=== PATIENT | male | born 1930 ===

== ENCOUNTER → 2016-06-13 | Outpatient (CLI) | payer OTHER ==
[~2016-06-13] MED LIST: ALBUAER2 INH; ASPI81TA28 PO; ETOD500T95 PO; MULTTAB5 PO; PRAV20TA PO
[2016-06-13 12:26] LABS: ALT/SGPT 29 U/L (12-78); BLOOD UREA NITROGEN 13 mg/dl (7-18); BUN/CREATININE RATIO 14.3 (10-20); CALCIUM 8.7 mg/dl (8.5-10.1); CARBON DIOXIDE 26 mmol/L (21-32); CHLORIDE 107 mmol/L (98-107); CHOLESTEROL 125 mg/dl (0-200); CREATININE 0.94 mg/dl (0.60-1.40); GLUCOSE 100 mg/dl (70-99); POTASSIUM 4.2 mmol/L (3.5-5.1); SODIUM 141 mmol/L (136-145)
[2016-06-13 12:29] LABS: ALB/GLOB RATIO 1.4 (0.9-2); ALKALINE PHOSPHATASE 66 U/L (45-117); AST/SGOT 20 U/L (15-37); CHOLESTEROL/HDL RATIO 2.2; HDL CHOLESTEROL 56 mg/dl; LDL CHOLESTEROL CALCULATED 55 mg/dl; TRIGLYCERIDES 68 mg/dl (0-150); VERY LOW DENSITY LIPOPROT CALC 14 mg/dl
== END | disposition home or self-care (01) ==
LOC: C.LABPBG 08:00
PROVIDERS: ATTEND Internal Medicine
DX: E78.5 Hyperlipidemia, unspecified (principal); I25.10 Atherosclerotic heart disease of native coronary artery without angina pectoris; I10 Essential (primary) hypertension

== ENCOUNTER 2017-02-20 08:34 | Inpatient (IN) | payer OTHER ==
[~2017-02-20] VITALS: Ht 167.6 cm; Wt 65.7 kg
[2017-02-20] MEDS ORDERED: SODIUM CHLORIDE 0.9% 1000ML 500 ML IV STA (08:41)
[2017-02-20] MEDS ORDERED: ONDANSETRON INJ 2 MG/ML 2 ML VIAL IV STA (08:41)
--- NOTE | 2017-02-20 08:51 | EMERGENCY ROOM VISIT NOTE ---
History Report prepared by Crystal: Stephanie Lopez Under the Supervision of: Dr. David Haskins M.D. First contact with patient: 08:37 Chief Complaint: ABDOMINAL PAIN Stated Complaint: ABDOMINAL PAIN Nursing Triage Summary: pt arrived als from independent living at [facility], reported abdominal pains for one week, one week prior had diarreah and vomitting, since then hasnt had a bm but is passing gas. pt states " he wasnt going to today so he wanted to come to the hospital" History of Present Illness The patient is an 86 year old male who presents to the Emergency Room with complaints of persistent, diffuse abdominal pain that began 8 days ago. He currently rates his discomfort as an 8/10 in severity. The patient states that last Friday he vomited three different times and then developed diarrhea for three days. He states that since last Friday he has not had a bowel movement, noting he has been constipated. The patient states that this morning he developed dry heaves. He states that he is feeling thirsty today. The patient denies any history of abdominal surgeries. He denies any history of a bowel obstruction. The patient denies any urinary symptoms or fever. Source of History: patient Onset: 8 days ago Position: abdomen (diffuse) Symptom Intensity: 810 Timing: other (persistent) Associated Symptoms: + vomiting, + diarrhea, No fevers, No urinary symptoms Note: Associated Symptoms: constipation Review of Systems See HPI for pertinent positives & negatives. A total of 10 systems reviewed and were otherwise negative. Past Medical & Surgical Medical Problems: (1) Heart disease (2) Hyperlipidemia (3) Lyme disease (4) Osteoarthritis (5) Prostate cancer (6) Prostate hypertrophy Family History No pertinent family history stated Social History Smoking Status: Former Smoker Marital Status: Housing Status: lives with significant other Occupation Status: retired Current/Historical Medications Scheduled Aspirin (Aspirin Chewable), 81 MG PO DAILY Atorvastatin (Lipitor), 80 MG PO DAILY Clopidogrel Bisulfate (Plavix), 75 MG PO DAILY Multiple Vitamins W/ Minerals (Centrum), 1 TAB PO DAILY Scheduled PRN Nitroglycerin (Nitrostat), 0.4 MG UT PRN PRN for CHEST PAIN Allergies Coded Allergies: No Known Allergies (Unverified , 02/20/17) Physical Exam Vital Signs Date Time Temp Pulse Resp B/P (MAP) Pulse Ox O2 Delivery O2 Flow Rate FiO2 02/20/17 11:57 97 Room Air 02/20/17 11:54 89 18 111/92 97 02/20/17 10:49 90 18 113/62 92 02/20/17 08:28 36.6 112 18 142/70 94 Room Air Physical Exam GENERAL: Patient is in no acute distress. HEENT: No acute trauma, normocephalic atraumatic, Mucous membranes dry, no nasal congestion, no scleral icterus. NECK: No stridor, no adenopathy, no meningismus, trachea is midline. LUNGS: Crackles at both bases. No wheezing, breath sounds equal. HEART: Tachycardic with a regular rhythm, no murmurs ABDOMEN: No obvious hernia, diffusely mildly tender, some distension present, tympany with percussion, no true peritonitis EXTREMITIES: No cyanosis or edema, full range of motion of all the joints without pain or difficulty, no signs for acute trauma. NEUROLOGIC: Oriented x 3, no acute motor or sensory deficits, no focal weakness. SKIN: No rash, no jaundice, no diaphoresis. Medical Decision & Procedures ER Provider Diagnostic Interpretation: Radiology results as stated below per my review and radiologist interpretation: SINGLE VIEW CHEST CLINICAL HISTORY: Generalized abdominal pain. FINDINGS: An AP, portable, upright chest radiograph is compared to study dated 09/14/2015 and correlated with chest CT dated 12/26/2015. The examination is degraded by portable technique and patient rotation. The heart is top normal for projection and there is atherosclerotic calcification of the thoracic aorta. The pulmonary vasculature is noncongested. Enlargement of the central pulmonary arteries is consistent with pulmonary artery hypertension. Emphysema and chronic interstitial thickening are similar to previous. There are foci of linear scarring versus atelectasis present the lung bases. The lungs and pleural spaces are otherwise clear. No pneumothorax is seen. The skeletal structures are osteopenic. The bony thorax is grossly intact. Arthritic change is noted in the spine and shoulders. IMPRESSION: Emphysema with no acute cardiopulmonary abnormality. Electronically signed by: David Spencer M.D. 02/20/2017 9:23 AM Dictated Date/Time: 02/20/2017 9:21 AM ABD/PELVIS IV CONTRAST ONLY CT DOSE: 325.85 mGy.cm HISTORY: ABD PAIN, POSS OBSTRUCTION, IV CONTRAST ONLY TECHNIQUE: Multiaxial CT images of the abdomen and pelvis were performed following the use of intravenous contrast. A dose lowering technique was utilized adhering to the principles of ALARA. COMPARISON STUDY: None. FINDINGS: Lung bases are clear. There multiple hypodensities within the right as well as left hepatic lobe. Metastatic disease must be considered. Spleen is uniform. Pancreas is unremarkable. Kidneys show several small parapelvic cysts. There are negative for hydronephrosis. Several nonspecific Nodes are present measuring up to 8 mm. Several nodes measuring up to 1 cm present in the mid to lower mesenteric Region. There is atherosclerotic change and ectasia of the abdominal aorta. There are distended loops of small bowel extending to but is potentially a annular type appearance to the region of the cecum and a sending colon. This is best seen transaxial image 38. Possibly of a lesion measuring up to 5 cm involving the cecum and/or a sending colon must be considered. There are several nonspecific nodes involving the mesentery. There are findings of chronic colonic diverticulosis. There is no evidence for acute diverticulitis. IMPRESSION: 1. 1. Multiple hepatic hypodensities highly suggestive of metastatic disease. 2. Findings suggesting partial small bowel obstructive change. 3. Potential lesion of the cecum and or proximal descending colon measuring up to 5 cm. 4. A colonic neoplasm with metastatic change must be considered. Colonoscopy is suggested initially. The above report was generated using voice recognition software. It may contain grammatical, syntax or spelling errors. Electronically signed by: Aiden Golden M.D. 02/20/2017 10:11 AM Dictated Date/Time: 02/20/2017 10:05 AM Laboratory Results 02/20/17 09:00 Red Blood Count 3.90, Mean Corpuscular Volume 85.9, Mean Corpuscular Hemoglobin 28.7, Mean Corpuscular Hemoglobin Concent 33.4, Mean Platelet Volume 9.6, Neutrophils (%) (Auto) 77.8, Lymphocytes (%) (Auto) 7.4, Monocytes (%) (Auto) 12.5, Eosinophils (%) (Auto) 1.7, Basophils (%) (Auto) 0.5, Neutrophils # (Auto ) 6.31, Lymphocytes # (Auto) 0.60, Monocytes # (Auto) 1.01, Eosinophils # (Auto ) 0.14, Basophils # (Auto) 0.04 02/20/17 09:00 Test 02/20/17 09:00 White Blood Count 8.11 K/uL (4.8-10.8) Red Blood Count 3.90 M/uL (4.7-6.1) Hemoglobin 11.2 g/dL (14.0-18.0) Hematocrit 33.5 % (42-52) Mean Corpuscular Volume 85.9 fL (80-100) Mean Corpuscular Hemoglobin 28.7 pg (25-34) Mean Corpuscular Hemoglobin Concent 33.4 g/dl (32-36) Platelet Count 209 K/uL (130-400) Mean Platelet Volume 9.6 fL (7.4-10.4) Neutrophils (%) (Auto) 77.8 % Lymphocytes (%) (Auto) 7.4 % Monocytes (%) (Auto) 12.5 % Eosinophils (%) (Auto) 1.7 % Basophils (%) (Auto) 0.5 % Neutrophils # (Auto) 6.31 K/uL (1.4-6.5) Lymphocytes # (Auto) 0.60 K/uL (1.2-3.4) Monocytes # (Auto) 1.01 K/uL (0.11-0.59) Eosinophils # (Auto) 0.14 K/uL (0-0.5) Basophils # (Auto) 0.04 K/uL (0-0.2) RDW Standard Deviation 42.8 fL (36.4-46.3) RDW Coefficient of Variation 13.7 % (11.5-14.5) Immature Granulocyte % (Auto) 0.1 % Immature Granulocyte # (Auto) 0.01 K/uL (0.00-0.02) Prothrombin Time 10.4 SECONDS (9.0-12.0) Prothromb Time International Ratio 1.0 (0.9-1.1) Activated Partial Thromboplast Time 27.8 SECONDS (21.0-31.0) Partial Thromboplastin Ratio 1.1 Anion Gap 9.0 mmol/L (3-11) Est Creatinine Clear Calc Drug Dose 77.3 ml/min Estimated GFR () 104.1 Estimated GFR (Non- 89.9 BUN/Creatinine Ratio 13.4 (10-20) Lactic Acid Level 1.4 mmol/L (0.4-2.0) Calcium Level 8.5 mg/dl (8.5-10.1) Total Bilirubin 0.9 mg/dl (0.2-1) Aspartate Amino Transf (AST/SGOT) 80 U/L (15-37) Alanine Aminotransferase (ALT/SGPT) 117 U/L (12-78) Alkaline Phosphatase 405 U/L (45-117) Troponin I < 0.015 ng/ml (0-0.045) Total Protein 6.4 gm/dl (6.4-8.2) Albumin 3.1 gm/dl (3.4-5.0) Globulin 3.3 gm/dl (2.5-4.0) Albumin/Globulin Ratio 0.9 (0.9-2) Lipase 75 U/L (73-393) Laboratory results reviewed by me. Medications Administered Medications (Trade) Dose Ordered Sig/Maciej Route Start Time Stop Time Status Last Admin Dose Admin Sodium Chloride 500 ml @ 999 mls/hr Q31M STAT IV 02/20/17 08:41 02/20/17 09:11 DC 02/20/17 08:53 999 MLS/HR Ondansetron HCl (Zofran Inj) 4 mg NOW STAT IV 02/20/17 08:41 02/20/17 08:46 DC 02/20/17 08:53 4 MG ECG Indication: abdominal pain Rate (beats per minute): 104 Rhythm: sinus tachycardia Findings: 1st degree AV block, RBBB, ST depression (lateral and anterior), no ectopy Comparison ECG Date: no prior available ED Course 0840: The patient was evaluated in room B4B. A complete history and physical exam was performed. 0841: Ordered Zofran Inj 4 mg IV, Sodium Chloride 500 ml @ 999 mls/hr IV. 1051: I reevaluated the patient and he is resting comfortably. I discussed the test results with him and I discussed the treatment plan. He verbalized complete understanding and agreement. He is going to be evaluated for further treatment. 1105: I discussed the patients case with REGINALDO Ramos. He is going to evaluate the patient for further treatment. Medical Decision The patient is an 86 year old male who presents to the ED with complaints of abdominal pain. Differential diagnoses considered include Bowel obstruction, dehydration, electrolyte imbalance, renal failure, pancreatitis, biliary colic, diverticulitis, colitis . There is no leukocytosis or concerning anemia. No significant electrolyte abnormality, kidney failure. There is elevation to the liver enzymes. No pancreatitis. Lactic acid level is not elevated making bowel ischemia less likely. Chest x-ray does not show free air or pneumonia. Abdominal and pelvis CT shows evidence for a small bowel obstruction and potential colonic mass with metastases to the liver. EKG shows a sinus tachycardia, no acute ischemia. Cardiac enzyme testing 1 is not consistent with acute cardiac injury. On exam , the patient was not febrile or toxic. He did not have findings of peritonitis. The patient received IV saline and IV Zofran, he did have an NG tube placed to low intermittent suction. The patient has a bowel obstruction and will require a stay in the hospital. I spoke with the patient about his findings, case management has been involved. The on-call hospitalist was consulted. Medication Reconcilliation Current Medication List: was personally reviewed by me Blood Pressure Screening Patient's blood pressure: Elevated blood pressure Blood pressure disposition: Elevated BP felt to be situational, Did not require urgent referral Consults Time Called: 1055 Consulting Physician: REGINALDO Ramos Returned Call: [phone] I discussed the patients case with REGINALDO Ramos. He is going to evaluate the patient for further treatment. Impression Primary Impression: Small bowel obstruction Additional Impressions: Elevated liver enzymes Dehydration Scribe Attestation The scribe's documentation has been prepared under my direction and personally reviewed by me in its entirety. I confirm that the note above accurately reflects all work, treatment, procedures, and medical decision making performed by me. Departure Information Dispostion Being Evaluated By Hospitalist Referrals Danilo Maldonado M.D. (PCP) Problem Qualifiers
[2017-02-20] MEDS ORDERED: CLOP1TAB5 PO (08:58)
[2017-02-20] MEDS ORDERED: ASPCH81X PO (08:58)
[2017-02-20] MEDS ORDERED: NTRGSL/4 UT (08:58)
[2017-02-20] MEDS ORDERED: ATOR-26 PO (08:58)
[2017-02-20] MEDS ORDERED: MULTTAB5 PO (08:58)
[2017-02-20] MEDS ORDERED: OPTIRAY 320 IV PRN (09:00)
[2017-02-20 09:15] LABS: BASO % 0.5 %; BASO ABS # 0.04 K/uL (0-0.2); COMPLETE YES; EOS % 1.7 %; HEMATOCRIT 33.5 % (42-52); IG% 0.1 %; LYMPH % 7.4 %; MEAN CELL VOLUME 85.9 fL (80-100); MEAN CORPUSCULAR HEMOGLOBIN 28.7 pg (25-34); MEAN CORPUSCULAR HGB CONC 33.4 g/dl (32-36); MEAN PLATELET VOLUME 9.6 fL (7.4-10.4); MONO % 12.5 %; NEUT % 77.8 %; PLATELET COUNT 209 K/uL (130-400); WHITE BLOOD COUNT 8.11 K/uL (4.8-10.8)
--- NOTE | 2017-02-20 09:24 | DIAGNOSTIC IMAGING REPORT ---
SINGLE VIEW CHEST CLINICAL HISTORY: Generalized abdominal pain. FINDINGS: An AP, portable, upright chest radiograph is compared to study dated 09/14/2015 and correlated with chest CT dated 12/26/2015. The examination is degraded by portable technique and patient rotation. The heart is top normal for projection and there is atherosclerotic calcification of the thoracic aorta. The pulmonary vasculature is noncongested. Enlargement of the central pulmonary arteries is consistent with pulmonary artery hypertension. Emphysema and chronic interstitial thickening are similar to previous. There are foci of linear scarring versus atelectasis present the lung bases. The lungs and pleural spaces are otherwise clear. No pneumothorax is seen. The skeletal structures are osteopenic. The bony thorax is grossly intact. Arthritic change is noted in the spine and shoulders. IMPRESSION: Emphysema with no acute cardiopulmonary abnormality. Electronically signed by: David Spencer M.D. 02/20/2017 9:23 AM Dictated Date/Time: 02/20/2017 9:21 AM
[2017-02-20 09:27] LABS: PARTIAL THROMBOPLASTIN RATIO 1.1; PROTHROMBIN TIME (PATIENT) 10.4 SECONDS (9.0-12.0)
[2017-02-20 09:35] LABS: BUN/CREATININE RATIO 13.4 (10-20); CALCIUM 8.5 mg/dl (8.5-10.1); CREATININE 0.63 mg/dl (0.60-1.40); POTASSIUM 3.8 mmol/L (3.5-5.1)
[2017-02-20 09:38] LABS: ALB/GLOB RATIO 0.9 (0.9-2)
--- NOTE | 2017-02-20 10:12 | DIAGNOSTIC IMAGING REPORT ---
ABD/PELVIS IV CONTRAST ONLY CT DOSE: 325.85 mGy.cm HISTORY: ABD PAIN, POSS OBSTRUCTION, IV CONTRAST ONLY TECHNIQUE: Multiaxial CT images of the abdomen and pelvis were performed following the use of intravenous contrast. A dose lowering technique was utilized adhering to the principles of ALARA. COMPARISON STUDY: None. FINDINGS: Lung bases are clear. There multiple hypodensities within the right as well as left hepatic lobe. Metastatic disease must be considered. Spleen is uniform. Pancreas is unremarkable. Kidneys show several small parapelvic cysts. There are negative for hydronephrosis. Several nonspecific Nodes are present measuring up to 8 mm. Several nodes measuring up to 1 cm present in the mid to lower mesenteric Region. There is atherosclerotic change and ectasia of the abdominal aorta. There are distended loops of small bowel extending to but is potentially a annular type appearance to the region of the cecum and a sending colon. This is best seen transaxial image 38. Possibly of a lesion measuring up to 5 cm involving the cecum and/or a sending colon must be considered. There are several nonspecific nodes involving the mesentery. There are findings of chronic colonic diverticulosis. There is no evidence for acute diverticulitis. IMPRESSION: 1. 1. Multiple hepatic hypodensities highly suggestive of metastatic disease. 2. Findings suggesting partial small bowel obstructive change. 3. Potential lesion of the cecum and or proximal descending colon measuring up to 5 cm. 4. A colonic neoplasm with metastatic change must be considered. Colonoscopy is suggested initially. The above report was generated using voice recognition software. It may contain grammatical, syntax or spelling errors. Electronically signed by: Aiden Golden M.D. 02/20/2017 10:11 AM Dictated Date/Time: 02/20/2017 10:05 AM
[2017-02-20 11:57] VITALS: O2SAT 97; Ht 167.6 cm; Wt 65.7 kg
[2017-02-20 12:32] VITALS: BP 124/74; PULSE 88; TEMP 36.8; O2SAT 95
--- NOTE | 2017-02-20 12:46 | DIAGNOSTIC IMAGING REPORT ---
KUB CLINICAL HISTORY: NG tube placement tube position COMPARISON STUDY: No previous studies for comparison. FINDINGS: The soft tissues, psoas shadows, renal outlines are unremarkable. Moderate small bowel distention suggesting partial small bowel obstruction. Nasogastric tube positioned in the gastric fundus. This is immediately distal to the gastroesophageal junction. Moderately distended loops of small bowel are present. IMPRESSION: 1. Nasogastric tube position in the proximal gastric fundus. 2. Moderately distended loops of small bowel suggesting partial small bowel obstructive change The above report was generated using voice recognition software. It may contain grammatical, syntax or spelling errors. Electronically signed by: Aiden Golden M.D. 02/20/2017 12:44 PM Dictated Date/Time: 02/20/2017 12:43 PM
--- NOTE | 2017-02-20 13:58 | Medical Consult ---
Consultation Date of Consultation: Feb 20, 2017. Attending Physician: Dewayne Wiley D.O. History of Present Illness 86 y/o male brought to ER by ambulance today from [facility] for abdominal pain, bloating and constipation. He had pizza on Feb 11 and Feb 12 began having discomfort and vomiting. He then had diarrhea for a few days before symptoms improved for a few days but are again increasing. He has not had a bowel movement in several days. He has not taken much to eat or drink and has not taken his Plavix or Lipitor since symptoms began Feb 11. Had a normal colonoscopy within the past 10 years. History of CAD for which he refused CABG and had stent placed at [facility] [place] in the fall 2015. Also h/o prostate cancer treated with radiation. Past Medical/Surgical History Medical Problems: (1) Heart disease (2) Hyperlipidemia (3) Lyme disease (4) Osteoarthritis (5) Prostate cancer (6) Prostate hypertrophy Social History Smoking Status: Former Smoker Marital Status: Housing Status: lives with significant other Occupation Status: retired Allergies Coded Allergies: No Known Allergies (Unverified , 02/20/17) Current Inpatient Medications Current Inpatient Medications Medications (Trade) Dose Ordered Sig/Maciej Route Start Time Stop Time Status Last Admin Dose Admin Ioversol (Optiray 320) 100 ml UD PRN IV 02/20/17 09:00 02/24/17 08:59 Enoxaparin Sodium (Lovenox Inj) 40 mg HS SQ 02/20/17 21:00 03/22/17 20:59 Ondansetron HCl (Zofran Inj) 4 mg Q6H PRN IV 02/20/17 11:30 03/22/17 11:29 Morphine Sulfate (MoRPHine SULFATE INJ) 2 mg Q4 PRN IV 02/20/17 11:30 03/06/17 11:29 Potassium Chloride/Sodium Chloride 1,000 ml @ 80 mls/hr [id number] IV 02/20/17 12:45 03/22/17 12:44 Review of Systems Cardiovascular: No chest pain, No claudication Abdomen: + pain, + nausea, + vomiting, + constipation, No GI bleeding Physical Exam Date Time Temp Pulse Resp B/P (MAP) Pulse Ox O2 Delivery O2 Flow Rate FiO2 02/20/17 12:32 36.8 88 20 124/74 (91) 95 Nasal Cannula 2.0 02/20/17 11:57 97 Room Air 02/20/17 11:54 89 18 111/92 97 02/20/17 10:49 90 18 113/62 92 02/20/17 08:28 36.6 112 18 142/70 94 Room Air General Appearance: WD/WN, no apparent distress ENT: normal ENT inspection, + pertinent finding (NG at 55 cm, minimal drainage) Respiratory/Chest: no respiratory distress, no accessory muscle use Abdomen/GI: non tender, soft, + distended (minimal) Neurologic/Psych: normal mood/affect, oriented x [address] IMPRESSION: 1. 1. Multiple hepatic hypodensities highly suggestive of metastatic disease. 2. Findings suggesting partial small bowel obstructive change. 3. Potential lesion of the cecum and or proximal descending colon measuring up to 5 cm. 4. A colonic neoplasm with metastatic change must be considered. Colonoscopy is suggested initially. The above report was generated using voice recognition software. It may contain grammatical, syntax or spelling errors. Electronically signed by: Aiden Golden M.D. 02/20/2017 10:11 AM Last 24 Hours Test 02/20/17 09:00 White Blood Count 8.11 K/uL Red Blood Count 3.90 M/uL Hemoglobin 11.2 g/dL Hematocrit 33.5 % Mean Corpuscular Volume 85.9 fL Mean Corpuscular Hemoglobin 28.7 pg Mean Corpuscular Hemoglobin Concent 33.4 g/dl Platelet Count 209 K/uL Mean Platelet Volume 9.6 fL Neutrophils (%) (Auto) 77.8 % Lymphocytes (%) (Auto) 7.4 % Monocytes (%) (Auto) 12.5 % Eosinophils (%) (Auto) 1.7 % Basophils (%) (Auto) 0.5 % Neutrophils # (Auto) 6.31 K/uL Lymphocytes # (Auto) 0.60 K/uL Monocytes # (Auto) 1.01 K/uL Eosinophils # (Auto) 0.14 K/uL Basophils # (Auto) 0.04 K/uL RDW Standard Deviation 42.8 fL RDW Coefficient of Variation 13.7 % Immature Granulocyte % (Auto) 0.1 % Immature Granulocyte # (Auto) 0.01 K/uL Prothrombin Time 10.4 SECONDS Prothromb Time International Ratio 1.0 Activated Partial Thromboplast Time 27.8 SECONDS Partial Thromboplastin Ratio 1.1 Sodium Level 136 mmol/L Potassium Level 3.8 mmol/L Chloride Level 102 mmol/L Carbon Dioxide Level 25 mmol/L Anion Gap 9.0 mmol/L Blood Urea Nitrogen 8 mg/dl Creatinine 0.63 mg/dl Est Creatinine Clear Calc Drug Dose 77.3 ml/min Estimated GFR () 104.1 Estimated GFR (Non- 89.9 BUN/Creatinine Ratio 13.4 Random Glucose 103 mg/dl Lactic Acid Level 1.4 mmol/L Calcium Level 8.5 mg/dl Total Bilirubin 0.9 mg/dl Aspartate Amino Transf (AST/SGOT) 80 U/L Alanine Aminotransferase (ALT/SGPT) 117 U/L Alkaline Phosphatase 405 U/L Troponin I < 0.015 ng/ml Total Protein 6.4 gm/dl Albumin 3.1 gm/dl Globulin 3.3 gm/dl Albumin/Globulin Ratio 0.9 Lipase 75 U/L Assessment & Plan 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 Could consider resection to alleviate obstruction if all and patient are in agreement. Agree with NG decompression. We will continue to follow. Attending addendum: Patient seen and examined, labs and imaging reviewed, agree with above. 86 year old male with history of ASCAD s/p coronary stent presented with abdominal pain, distention, vomiting. CT revealed cecal mass with possible bowel obstruction, as well as likely diffuse liver metastases. Colonoscopy within past 10 years normal, no melena or hematochezia. Patient with relief with NG tube for now. Recommend complete staging workup and cardiac eval. Recs: [facility] consultation for possible colonscopy and biopsy recommend CT or US guided liver biopsy to confirm metastatic disease cardiology consultation for pre op risk assessment Would appreciate oncology evaluation to discuss treatment options and prognosis with patient PET scan may be helpful to assess for other mets, but defer to oncology recs Patient may benefit from palliative resection, or possible diversion depending on complete workup and overall perioperative risk Oncologic resection of this likely colon primary will likely add no survival benefit, but may benefit from palliative resection continue NG, surgery will follow appreciate primary team and quantitative consultant's assistance with this patient, call with questions or concerns The plan of care was discussed with the patient, all questions answered, the patient expressed understanding and agrees with plan as stated Susan Velazco DO
--- NOTE | 2017-02-20 14:20 | History and Physical ---
History & Physical Date & Time of Service: Feb 20, 2017 at 14:01 Chief Complaint: Dehydration,Small Bowel Obstruction Primary Care Physician: Danilo Maldonado M.D. History of Present Illness Source: patient, hospital records 86 yo male with a history of CAD with coronary stent in summer, presented today with abdominal pain and constipation for 6 days. His last BM was Wednesday 02/14 and he stopped passing flatus yesterday. He has had more and more abdominal pain and distension over the past few days. He describes feeling generally fatigued and malaise. He thought he had the flu. He has not history of constipation or serious bowel issues. He has a medical h/o CAD with stenting, no angina symptoms. He has dyslipidemia and HTN. Lab work was normal. CT abdomen/pelvis showed a small bowel obstruction, possible 5cm cecal mass and evidence of liver metastases. He had a normal colonoscopy 10 years ago. Patient seen by general surgery, recommend GI and oncology consultation, may consider surgical excision of tumor. Past Medical/Surgical History Bullous emphysema CAD with coronary stent in 2015 Medical Problems: (1) Heart disease Status: Chronic (2) Hyperlipidemia Status: Chronic (3) Lyme disease Status: Resolved (4) Osteoarthritis Status: Chronic (5) Prostate cancer Status: Resolved (6) Prostate hypertrophy Status: Resolved Family History denies any family history of colon cancer Social History Smoking Status: Former Smoker Alcohol Use: occasionally Drug Use: none Marital Status: Occupational Status: retired Allergies Coded Allergies: No Known Allergies (Unverified , 02/20/17) Home Medications Scheduled Aspirin (Aspirin Chewable), 81 MG PO DAILY Atorvastatin (Lipitor), 80 MG PO DAILY Clopidogrel Bisulfate (Plavix), 75 MG PO DAILY Multiple Vitamins W/ Minerals (Centrum), 1 TAB PO DAILY Scheduled PRN Nitroglycerin (Nitrostat), 0.4 MG UT PRN PRN for CHEST PAIN Review of Systems Constitutional: + weakness, + fatigue, No fever, No chills, No sweats, No weight loss, No problem reported Eyes: No worsening of vision, No eye pain, No redness, No discharge, No diplopia, No problem reported ENT: No hearing loss, No unusual epistaxis, No nasal symptoms, No sore throat, No tinnitus, No dental problems, No trouble swallowing, No problem reported Respiratory: No cough, No sputum, No wheezing, No shortness of breath, No dyspnea on exertion, No dyspnea at rest, No hemoptysis, No problem reported Cardiovascular: No chest pain, No orthopnea, No PND, No edema, No claudication , No palpitations, No problem reported Abdomen: + pain, + nausea, + vomiting, + constipation (and obstipation), No diarrhea, No GI bleeding Musculoskeletal: + joint pain (back, chronic), No muscle pain, No swelling, No calf pain, No problem reported Genitourinary - Male: No hematuria, No dysuria, No urinary frequency, No urinary urgency, No urinary hesitancy, No urinary retention Neurologic: No memory loss, No paralysis, No weakness, No numbness/tingling, No vertigo, No balance problems, No problem reported Psychiatric: No depression symptoms, No anhedonism, No anxiety, No insomnia, No substance abuse, No problem reported Endocrine: No fatigue, No excessive thirst, No excessive urination, No problem reported Hematologic / Lymphatic: No abnormal bleeding/bruising, No clotting problems, No swollen lymph nodes, No night sweats, No problem reported Integumentary: No rash, No itch, No new/changing skin lesions, No color change , No bleeding, No problem reported Allergic / Immunologic: No environmental allergies, No seasonal allergies, No pet sensitivities, No food allergies, No hives, No frequent infections, No poor healing, No prolonged convalescence, No problem reported Physical Exam Vital Signs Date Time Temp Pulse Resp B/P (MAP) Pulse Ox O2 Delivery O2 Flow Rate FiO2 02/20/17 12:32 36.8 88 20 124/74 (91) 95 Nasal Cannula 2.0 02/20/17 11:57 97 Room Air 02/20/17 11:54 89 18 111/92 97 02/20/17 10:49 90 18 113/62 92 02/20/17 08:28 36.6 112 18 142/70 94 Room Air General Appearance: WD/WN, no apparent distress Head: normocephalic, atraumatic Eyes: normal inspection, EOMI, sclerae normal ENT: normal ENT inspection, hearing grossly normal, pharynx normal Neck: supple, no adenopathy, no JVD, trachea midline Respiratory/Chest: chest non-tender, lungs clear, normal breath sounds, no respiratory distress, no accessory muscle use Cardiovascular: regular rate, rhythm, no edema, no gallop, no JVD, no murmur, normal peripheral pulses Abdomen/GI: normal bowel sounds, non tender, no organomegaly, + distended Back: normal inspection, no CVA tenderness, no muscle spasm, normal range of motion Extremities/Musculoskelatal: normal inspection, no calf tenderness, normal capillary refill, no pedal edema, normal range of motion, pelvis stable 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, no motor/sensory deficits, alert, normal mood/affect, normal reflexes, oriented x 3 Skin: normal color, warm/dry, no rash Diagnostics Laboratory Results Results Past 24 Hours Test 02/20/17 09:00 Range/Units White Blood Count 8.11 4.8-10.8 K/uL Red Blood Count 3.90 4.7-6.1 M/uL Hemoglobin 11.2 14.0-18.0 g/dL Hematocrit 33.5 42-52 % Mean Corpuscular Volume 85.9 80-100 fL Mean Corpuscular Hemoglobin 28.7 25-34 pg Mean Corpuscular Hemoglobin Concent 33.4 32-36 g/dl Platelet Count 209 130-400 K/uL Mean Platelet Volume 9.6 7.4-10.4 fL Neutrophils (%) (Auto) 77.8 % Lymphocytes (%) (Auto) 7.4 % Monocytes (%) (Auto) 12.5 % Eosinophils (%) (Auto) 1.7 % Basophils (%) (Auto) 0.5 % Neutrophils # (Auto) 6.31 1.4-6.5 K/uL Lymphocytes # (Auto) 0.60 1.2-3.4 K/uL Monocytes # (Auto) 1.01 0.11-0.59 K/uL Eosinophils # (Auto) 0.14 0-0.5 K/uL Basophils # (Auto) 0.04 0-0.2 K/uL RDW Standard Deviation 42.8 36.4-46.3 fL RDW Coefficient of Variation 13.7 11.5-14.5 % Immature Granulocyte % (Auto) 0.1 % Immature Granulocyte # (Auto) 0.01 0.00-0.02 K/uL Prothrombin Time 10.4 9.0-12.0 SECONDS Prothromb Time International Ratio 1.0 0.9-1.1 Activated Partial Thromboplast Time 27.8 21.0-31.0 SECONDS Partial Thromboplastin Ratio 1.1 Sodium Level 136 136-145 mmol/L Potassium Level 3.8 3.5-5.1 mmol/L Chloride Level 102 98-107 mmol/L Carbon Dioxide Level 25 21-32 mmol/L Anion Gap 9.0 3-11 mmol/L Blood Urea Nitrogen 8 7-18 mg/dl Creatinine 0.63 0.60-1.40 mg/dl Est Creatinine Clear Calc Drug Dose 77.3 ml/min Estimated GFR () 104.1 Estimated GFR (Non- 89.9 BUN/Creatinine Ratio 13.4 10-20 Random Glucose 103 70-99 mg/dl Lactic Acid Level 1.4 0.4-2.0 mmol/L Calcium Level 8.5 8.5-10.1 mg/dl Total Bilirubin 0.9 0.2-1 mg/dl Aspartate Amino Transf (AST/SGOT) 80 15-37 U/L Alanine Aminotransferase (ALT/SGPT) 117 12-78 U/L Alkaline Phosphatase 405 45-117 U/L Troponin I < 0.015 0-0.045 ng/ml Total Protein 6.4 6.4-8.2 gm/dl Albumin 3.1 3.4-5.0 gm/dl Globulin 3.3 2.5-4.0 gm/dl Albumin/Globulin Ratio 0.9 0.9-2 Lipase 75 73-393 U/L Diagnostic Radiology CT abdomen/pelvis IMPRESSION: 1. Multiple hepatic hypodensities highly suggestive of metastatic disease. 2. Findings suggesting partial small bowel obstructive change. 3. Potential lesion of the cecum and or proximal descending colon measuring up to 5 cm. 4. A colonic neoplasm with metastatic change must be considered. Colonoscopy is suggested initially. other (emphysema) EKG sinus tachycardia, 1st degree AV block, RBBB pattern, incomplete Impression Assessment and Plan 86 yo male with constipation and now obstipation, CT shows SBO and cecal mass - SBO likely due to cecal mass, measures 5cm on CT scan NPO, NGT placed, low intermittent suction, patient has some relief from pain and nausea NSS at 80cc/hr discussed with general surgery PA, they would like a GI consult, will place ultimately will likely need excision of the tumor to relieve obstruction would hold on oncology consultation at this point since nothing to do until tissue diagnosis obtained I discussed situation with patient, asked him if he would like to call his family, he refused - CAD with stent in 2016: no angina at baseline will hold aspirin and Plavix given potential surgical intervention hold Lipitor since NPO - Bullous emphysema: breathing is stable, no wheezing - Prostate cancer: in remission according to outpatient notes - DVT prophylaxis: Lovenox Level 1 again, asked patient for permission to update his family since they cannot be here at bedside, he refused Level of Care Med/Surg Advanced Directives Existing Living Will: No Existing Power of Marketing Development Specialist: No Resuscitation Status FULL RESUSCITATION VTE Prophylaxis VTE Risk Assessment Done? Y/N: Yes Risk Level: High Additional Copies To Danilo Maldonado M.D.
[2017-02-20] MEDS: NSS + 20MEQ KCL 1000ML 1,000 ML IV SCH ×2 (14:51→23:38)
[2017-02-20 15:19] VITALS: BP 118/74; PULSE 87; TEMP 36.8; O2SAT 95
[2017-02-20] MEDS: MoRPHine SULFATE 2 MG/ML CARP IV PRN (19:50)
[2017-02-20] MEDS: ENOXAPARIN 40 MG/0.4 ML SYR SQ SCH (19:50)
[2017-02-20 23:35] VITALS: BP 110/67; PULSE 100; TEMP 36.8; O2SAT 90
[2017-02-21] VITALS: O2SAT 97
[2017-02-21] MEDS: MoRPHine SULFATE 2 MG/ML CARP IV PRN ×4 (01:11→20:48)
[2017-02-21 06:30] LABS: BASO % 0.4 %; BASO ABS # 0.02 K/uL (0-0.2); COMPLETE YES; EOS % 5.7 %; HEMATOCRIT 31.9 % (42-52); IG% 0.2 %; LYMPH % 20.4 %; LYMPH ABS # 0.96 K/uL (1.2-3.4); MEAN CELL VOLUME 86.7 fL (80-100); MEAN CORPUSCULAR HGB CONC 32.3 g/dl (32-36); MEAN PLATELET VOLUME 9.3 fL (7.4-10.4); MONO % 15.1 %; NEUT % 58.2 %; PLATELET COUNT 187 K/uL (130-400); RED BLOOD COUNT 3.68 M/uL (4.7-6.1)
[2017-02-21 06:59] LABS: BUN/CREATININE RATIO 16.4 (10-20); CALCIUM 7.8 mg/dl (8.5-10.1); CREATININE 0.65 mg/dl (0.60-1.40); MAGNESIUM 2.2 mg/dl (1.8-2.4); POTASSIUM 4.2 mmol/L (3.5-5.1)
[2017-02-21 07:54] VITALS: BP 113/65; PULSE 86; TEMP 36.7; O2SAT 88
--- NOTE | 2017-02-21 08:34 | Surgery Progress Note ---
Surgery Progress Note Date of Service Feb 21, 2017. Subjective + feeling well, + bowel movement (multiple overnight), + flatus, No nausea Objective Vital Signs: Date Time Temp Pulse Resp B/P (MAP) Pulse Ox O2 Delivery O2 Flow Rate FiO2 02/21/17 07:54 36.7 86 18 113/65 (81) 88 Room Air 02/21/17 00:00 97 Room Air 02/20/17 23:35 36.8 100 20 110/67 (81) 90 Room Air 02/20/17 20:00 Room Air 02/20/17 16:00 Nasal Cannula 2.0 02/20/17 15:19 36.8 87 18 118/74 (89) 95 Nasal Cannula 1.0 02/20/17 12:32 36.8 88 20 124/74 (91) 95 Nasal Cannula 2.0 02/20/17 11:57 97 Room Air 02/20/17 11:54 89 18 111/92 97 02/20/17 10:49 90 18 113/62 92 02/20/17 08:28 36.6 112 18 142/70 94 Room Air Physical Exam: nasogastric drainage (230 cc) Abdomen: non tender, non distended, soft Laboratory Results: Results Past 24 Hours Test 02/20/17 09:00 02/20/17 14:11 02/21/17 06:14 Range/Units White Blood Count 8.11 4.70 4.8-10.8 K/uL Red Blood Count 3.90 3.68 4.7-6.1 M/uL Hemoglobin 11.2 10.3 14.0-18.0 g/dL Hematocrit 33.5 31.9 42-52 % Mean Corpuscular Volume 85.9 86.7 80-100 fL Mean Corpuscular Hemoglobin 28.7 28.0 25-34 pg Mean Corpuscular Hemoglobin Concent 33.4 32.3 32-36 g/dl Platelet Count 209 187 130-400 K/uL Mean Platelet Volume 9.6 9.3 7.4-10.4 fL Neutrophils (%) (Auto) 77.8 58.2 % Lymphocytes (%) (Auto) 7.4 20.4 % Monocytes (%) (Auto) 12.5 15.1 % Eosinophils (%) (Auto) 1.7 5.7 % Basophils (%) (Auto) 0.5 0.4 % Neutrophils # (Auto) 6.31 2.73 1.4-6.5 K/uL Lymphocytes # (Auto) 0.60 0.96 1.2-3.4 K/uL Monocytes # (Auto) 1.01 0.71 0.11-0.59 K/uL Eosinophils # (Auto) 0.14 0.27 0-0.5 K/uL Basophils # (Auto) 0.04 0.02 0-0.2 K/uL RDW Standard Deviation 42.8 43.7 36.4-46.3 fL RDW Coefficient of Variation 13.7 13.7 11.5-14.5 % Immature Granulocyte % (Auto) 0.1 0.2 % Immature Granulocyte # (Auto) 0.01 0.01 0.00-0.02 K/uL Prothrombin Time 10.4 9.0-12.0 SECONDS Prothromb Time International Ratio 1.0 0.9-1.1 Activated Partial Thromboplast Time 27.8 21.0-31.0 SECONDS Partial Thromboplastin Ratio 1.1 Sodium Level 136 137 136-145 mmol/L Potassium Level 3.8 4.2 3.5-5.1 mmol/L Chloride Level 102 106 98-107 mmol/L Carbon Dioxide Level 25 26 21-32 mmol/L Anion Gap 9.0 5.0 3-11 mmol/L Blood Urea Nitrogen 8 11 7-18 mg/dl Creatinine 0.63 0.65 0.60-1.40 mg/dl Est Creatinine Clear Calc Drug Dose 77.3 74.9 ml/min Estimated GFR () 104.1 102.8 Estimated GFR (Non- 89.9 88.7 BUN/Creatinine Ratio 13.4 16.4 10-20 Random Glucose 103 79 70-99 mg/dl Lactic Acid Level 1.4 0.4-2.0 mmol/L Calcium Level 8.5 7.8 8.5-10.1 mg/dl Total Bilirubin 0.9 0.9 0.2-1 mg/dl Aspartate Amino Transf (AST/SGOT) 80 54 15-37 U/L Alanine Aminotransferase (ALT/SGPT) 117 84 12-78 U/L Alkaline Phosphatase 405 347 45-117 U/L Troponin I < 0.015 0-0.045 ng/ml Total Protein 6.4 5.6 6.4-8.2 gm/dl Albumin 3.1 2.6 3.4-5.0 gm/dl Globulin 3.3 2.5-4.0 gm/dl Albumin/Globulin Ratio 0.9 0.9-2 Lipase 75 73-393 U/L Carcinoembryonic Antigen 19.4 0-2.5 ng/ml Magnesium Level 2.2 1.8-2.4 mg/dl Direct Bilirubin 0.4 0-0.2 mg/dl Assessment & Plan cecal/ascending colon mass appears partially obstructing bowels moving, exam improved will clamp NG await GI eval
[2017-02-21 08:39] VITALS: O2SAT 90
--- NOTE | 2017-02-21 10:02 | Clinical Documentation Query ---
CLINICAL DOCUMENTATION QUERY Dr. CANALES, "Cecal Mass will code to a nonspecific intra-abd swelling, mass or lump" In your clinical opinion is this patient being managed for: ( x ) Suspected Malignant neoplasm of cecum and/or proximal descending colon ( ) Not Agree ( ) Other explanation of clinical findings (Please Explain) ( ) Unable to determine (Please Define) ( ) Need to Discuss The medical record reflects the following clinical findings, treatment, and risk factors. Clinical Indicators: 86 yo male presenting with abd pain, vomiting and diarrhea. CT abd showed Potential lesion of the cecum and or prox descending colon. Documentation reflects "SBO likely due to cecal mass". CEA 19.4 Treatment: KUB, NGT, consult surgery, IV fluids, IV zofran and IV morphine prn, CEA Risk Factors: age, hx prostate cancer Please clarify and document your clinical opinion in the progress notes and discharge summary. Terms such as "probable", "suspected", "likely", "questionable", "possible", or "still to be ruled out" are acceptable. IF IN AGREEMENT, YOU MUST DOCUMENT ABOVE DIAGNOSTIC STATEMENT IN DAILY PROGRESS NOTES AND DISCHARGE SUMMARY. This document is not part of the patient's record. Thank You, Faby Acosta RN [phone]
--- NOTE | 2017-02-21 10:04 | DIAGNOSTIC IMAGING REPORT ---
KUB CLINICAL HISTORY: PSBO bowel obstruction COMPARISON STUDY: 02/20/2017 FINDINGS: The nasogastric tube has been advanced slightly to the mid gastric body. Bowel pattern continues to suggest a partial small bowel obstructive change. There is increased colonic content compared to the prior exam. The degree of distention is similar to improved. IMPRESSION: Mildly improving findings of partial small bowel obstructive change. Nasogastric tube mid stomach. The above report was generated using voice recognition software. It may contain grammatical, syntax or spelling errors. Electronically signed by: Aiden Golden M.D. 02/21/2017 10:02 AM Dictated Date/Time: 02/21/2017 10:02 AM
--- NOTE | 2017-02-21 11:25 | Gastrointestinal Consultation ---
Gastrointestinal Consultation Date of Consultation: Feb 21, 2017 Consulting Physician: Venkata Reason for Consultation: abnormal imaging, ? colon mass w/ liver mets History of Present Illness Patient is a 86 year old male w/ history of prostate CA s/p lupron/radiation and CAD s/p stenting in 2016 who presented through the ED for evaluation of constipation, abdominal pain and fatigue - CT abd/pelvis w/ SBO concerning for colonic neoplasm w/ ? cecal mas. Pt was seen and evaluated, chart reviewed. Generally surgery has already evaluated pt. Pt notes he had been feeling quite well in his typical state of renee up until last week. Notes typically does not have any abd pain, nausea, vomiting. Moves his bowels once daily, formed on metamucil. No black stools. No bloody stools. No change in stool caliber. About one week ago, ate pizza and has had generalized abd complaints since. Daily nausea, abdominal pain and constipation. Today, he notes he feels well No longer has any nausea since NG placed. No vomiting. Had semi-formed stools yesterday. Trial of clears this AM. VSS. No leukocytosis, he is anemic w/ H&H 10.3&31.9 , no iron panel. Kidney function ok, Bilurubin WNL w/ mildly elevated transaminases. CEA is elevated. KUB 02/21/17: Mildly improving findings of partial small bowel obstructive change. Nasogastric tube mid stomach. KUB 02/20/17: Nasogastric tube position in the proximal gastric fundus. Moderately distended loops of small bowel suggesting partial SBO CT ABD/PELVIS 02/20/17: Multiple hepatic hypodensities highly suggestive of metastatic disease. Findings suggesting partial small bowel obstructive change. Potential lesion of the cecum and or proximal descending colon measuring up to 5 cm. A colonic neoplasm with metastatic change must be considered. Colonoscopy is suggested initially. Chest XR 02/20/17: Emphysema with no acute cardiopulmonary abnormality. Past Medical/Surgical History Medical Problems: (1) Dehydration Status: Acute (2) Elevated liver enzymes Status: Acute (3) Small bowel obstruction Status: Acute Past Medical History: hyperlipidemia, CAD, esophagitis, BPH, prostate CA, lyme disease, cataract, spinal stenosis, HTN, OA Past Surgical History: tonsillectomy, cataract repair, cardiac angioplasty Social History Smoking Status: Former Smoker Drug Use: none Marital Status: Housing Status: lives with significant other Occupation Status: retired Allergies Coded Allergies: No Known Allergies (Unverified , 02/20/17) Current Medications Home Meds and Scripts Medications Dose Route/Sig Max Daily Dose Days Date Category Centrum (Multiple Vitamins W/ Minerals) 1 Tab Tab 1 Tab PO DAILY 02/20/17 Reported Nitrostat (Nitroglycerin) 0.4 Mg Tab 0.4 Mg UT PRN PRN 02/20/17 Reported Lipitor (Atorvastatin Calcium) 80 Mg Tab 80 Mg PO DAILY 02/20/17 Reported Aspirin Chewable (Aspirin) 81 Mg Chew 81 Mg PO DAILY 02/20/17 Reported Plavix (Clopidogrel Bisulfate) 75 Mg Tab 75 Mg PO DAILY 02/20/17 Reported Review of Systems Constitutional: No fever, No chills Respiratory: No cough, No shortness of breath Cardiac: No chest pain, No edema Abdomen: No pain, No nausea, No vomiting, No diarrhea, No constipation, No GI bleeding Physical Exam Date Time Temp Pulse Resp B/P (MAP) Pulse Ox O2 Delivery O2 Flow Rate FiO2 02/21/17 08:39 90 Room Air 02/21/17 08:15 Room Air 02/21/17 07:54 36.7 86 18 113/65 (81) 88 Room Air 02/21/17 00:00 97 Room Air 02/20/17 23:35 36.8 100 20 110/67 (81) 90 Room Air 02/20/17 20:00 Room Air 02/20/17 16:00 Nasal Cannula 2.0 02/20/17 15:19 36.8 87 18 118/74 (89) 95 Nasal Cannula 1.0 02/20/17 12:32 36.8 88 20 124/74 (91) 95 Nasal Cannula 2.0 02/20/17 11:57 97 Room Air 02/20/17 11:54 89 18 111/92 97 General Appearance: no apparent distress, + pertinent finding (NG in place in left nostril) Eyes: PERRL ENT: hearing grossly normal Neck: supple Respiratory/Chest: lungs clear, normal breath sounds Cardiovascular: regular rate, rhythm, no gallop Abdomen: normal bowel sounds, non tender, soft, no organomegaly, no pulsatile mass Neurologic/Psych: alert, normal mood/affect, oriented x 3 Skin: normal color, no jaundice Laboratory Results Last 24 Hours Test 02/20/17 14:11 02/21/17 06:14 Carcinoembryonic Antigen 19.4 ng/ml White Blood Count 4.70 K/uL Red Blood Count 3.68 M/uL Hemoglobin 10.3 g/dL Hematocrit 31.9 % Mean Corpuscular Volume 86.7 fL Mean Corpuscular Hemoglobin 28.0 pg Mean Corpuscular Hemoglobin Concent 32.3 g/dl Platelet Count 187 K/uL Mean Platelet Volume 9.3 fL Neutrophils (%) (Auto) 58.2 % Lymphocytes (%) (Auto) 20.4 % Monocytes (%) (Auto) 15.1 % Eosinophils (%) (Auto) 5.7 % Basophils (%) (Auto) 0.4 % Neutrophils # (Auto) 2.73 K/uL Lymphocytes # (Auto) 0.96 K/uL Monocytes # (Auto) 0.71 K/uL Eosinophils # (Auto) 0.27 K/uL Basophils # (Auto) 0.02 K/uL RDW Standard Deviation 43.7 fL RDW Coefficient of Variation 13.7 % Immature Granulocyte % (Auto) 0.2 % Immature Granulocyte # (Auto) 0.01 K/uL Sodium Level 137 mmol/L Potassium Level 4.2 mmol/L Chloride Level 106 mmol/L Carbon Dioxide Level 26 mmol/L Anion Gap 5.0 mmol/L Blood Urea Nitrogen 11 mg/dl Creatinine 0.65 mg/dl Est Creatinine Clear Calc Drug Dose 74.9 ml/min Estimated GFR () 102.8 Estimated GFR (Non- 88.7 BUN/Creatinine Ratio 16.4 Random Glucose 79 mg/dl Calcium Level 7.8 mg/dl Magnesium Level 2.2 mg/dl Total Bilirubin 0.9 mg/dl Direct Bilirubin 0.4 mg/dl Aspartate Amino Transf (AST/SGOT) 54 U/L Alanine Aminotransferase (ALT/SGPT) 84 U/L Alkaline Phosphatase 347 U/L Total Protein 5.6 gm/dl Albumin 2.6 gm/dl Impression Patient is a 86 year old male w/ history CAD s/p stenting and prostate CA s/p lupron and radiation who presented through the ED w/ constipation and generalized fatigue - CT w/ SBO, concerning for metastatic colon CA w/ a cecal lesion w/ numerous hepatic hypodensities. Pt notes a normal screening colonoscopy less than 10 years ago at [facility] - I have not been able to find this report. No leukocytosis, he is anemic w/ H&H 10.3&31.9 , no iron panel. Kidney function ok, Bilurubin WNL w/ mildly elevated transaminases. CEA is elevated. He will need a colonoscopy to be arranged during this admission when he is able to tolerate PO prep. Care was coordinated with Dr. Perry. Plan - Continue SBO management per general surgery service - NG to intermittent suction - Bowel rest --> advance to clears - Antiemetics PRN - Analgesia PRN - Tentatively plan for colonoscopy w/ biopsy Friday - Please order bowel prep over the weekend if pt is cleared for PO by general surgery and able to tolerate - Clear liquids x 1 day - 1700 - Dulcolax 20 mg - Miralax 119 gm w/ 64 oz of Gatorade - 2100 - Miralax 119 gm w/ 64 oz of Gatorade - NPO after midnight - Care coordinated with Dr. Perry. Please call with any questions or concerns. Thank you!
[2017-02-21 14:51] LABS: URINE APPEARANCE CLEAR (CLEAR); URINE COLOR DK YELLOW; URINE NITRITE NEG (NEG); URINE SPECIFIC GRAVITY 1.022 (1.000-1.030); UROBILINOGEN NEG (NEG); ZZUR CULT IF INDIC CLEAN CATCH NO
[2017-02-21 14:55] LABS: MANUAL MICROSCOPIC REQUIRED? NO; REVIEW REQ? NO; URINE BILIRUBIN NEG (NEG)
[2017-02-21 14:59] VITALS: BP 127/68; PULSE 57; TEMP 37.1; O2SAT 96
--- NOTE | 2017-02-21 17:55 | Progress Note ---
Subjective Date of Service: Feb 21, 2017. Subjective Pt evaluation today including: conversation w/ patient, physical exam, chart review, lab review, review of studies, conversation w/ planning consultant, review of inpatient medication list feeling better did well w clears "that was the best jello i've ever had" no pain /nausea. did have some diarrhea none ongoing no signifncant abdominal pain now dw GI Problem List Medical Problems: (1) Dehydration Status: Acute (2) Elevated liver enzymes Status: Acute (3) Small bowel obstruction Status: Acute Review of Systems all other ROS otherwise negative except for as above Objective Vital Signs Date Time Temp Pulse Resp B/P (MAP) Pulse Ox O2 Delivery O2 Flow Rate FiO2 02/21/17 14:59 37.1 57 18 127/68 (87) 96 02/21/17 08:39 90 Room Air 02/21/17 08:15 Room Air 02/21/17 07:54 36.7 86 18 113/65 (81) 88 Room Air 02/21/17 00:00 97 Room Air 02/20/17 23:35 36.8 100 20 110/67 (81) 90 Room Air 02/20/17 20:00 Room Air Physical Exam General Appearance: no apparent distress Eyes: EOMI ENT: hearing grossly normal Neck: trachea midline Respiratory/Chest: no respiratory distress, no accessory muscle use Abdomen: soft, + distended (mildly, nontender no guarding no rebound) Extremities: normal range of motion Neurologic/Psychiatric: pathology specialist II-XII nml as tested, alert, normal mood/affect Skin: normal color, warm/dry Laboratory Results Last 24 Hours Test 02/21/17 06:14 02/21/17 14:40 White Blood Count 4.70 K/uL Red Blood Count 3.68 M/uL Hemoglobin 10.3 g/dL Hematocrit 31.9 % Mean Corpuscular Volume 86.7 fL Mean Corpuscular Hemoglobin 28.0 pg Mean Corpuscular Hemoglobin Concent 32.3 g/dl Platelet Count 187 K/uL Mean Platelet Volume 9.3 fL Neutrophils (%) (Auto) 58.2 % Lymphocytes (%) (Auto) 20.4 % Monocytes (%) (Auto) 15.1 % Eosinophils (%) (Auto) 5.7 % Basophils (%) (Auto) 0.4 % Neutrophils # (Auto) 2.73 K/uL Lymphocytes # (Auto) 0.96 K/uL Monocytes # (Auto) 0.71 K/uL Eosinophils # (Auto) 0.27 K/uL Basophils # (Auto) 0.02 K/uL RDW Standard Deviation 43.7 fL RDW Coefficient of Variation 13.7 % Immature Granulocyte % (Auto) 0.2 % Immature Granulocyte # (Auto) 0.01 K/uL Sodium Level 137 mmol/L Potassium Level 4.2 mmol/L Chloride Level 106 mmol/L Carbon Dioxide Level 26 mmol/L Anion Gap 5.0 mmol/L Blood Urea Nitrogen 11 mg/dl Creatinine 0.65 mg/dl Est Creatinine Clear Calc Drug Dose 74.9 ml/min Estimated GFR () 102.8 Estimated GFR (Non- 88.7 BUN/Creatinine Ratio 16.4 Random Glucose 79 mg/dl Calcium Level 7.8 mg/dl Magnesium Level 2.2 mg/dl Total Bilirubin 0.9 mg/dl Direct Bilirubin 0.4 mg/dl Aspartate Amino Transf (AST/SGOT) 54 U/L Alanine Aminotransferase (ALT/SGPT) 84 U/L Alkaline Phosphatase 347 U/L Total Protein 5.6 gm/dl Albumin 2.6 gm/dl Urine Color DK YELLOW Urine Appearance CLEAR Urine pH 5.0 Urine Specific [place] 1.022 Urine Protein NEG Urine Glucose (UA) NEG Urine Ketones 1+ Urine Occult Blood NEG Urine Nitrite NEG Urine Bilirubin NEG Urine Urobilinogen NEG Urine Leukocyte Esterase NEG Assessment and Plan - SBO likely due to cecal mass, measures 5cm on CT scan surgery opted not for palliative surgery to alleviate obstruction - d/w GI re ?hopefully stenting clears tolerated - advance to full (will have to stop there until obstruction dealt with) -- if no nausea/pain w fulls then can likely dc NGT tomorrow - CAD with stent in 2016: no angina at baseline holding aspirin and Plavix given potential surgical intervention holding Lipitor for now can resume once PO intake is clearly stable - Bullous emphysema: asymptomatic - Prostate cancer: in remission according to outpatient notes - DVT prophylaxis: Lovenox
[2017-02-21] MEDS ORDERED: ACETAMINOPHEN 325 MG TAB PO PRN (18:30)
[2017-02-21] MEDS: ENOXAPARIN 40 MG/0.4 ML SYR SQ SCH (20:45)
[2017-02-21 22:37] VITALS: BP 116/58; PULSE 83; TEMP 36.9; O2SAT 87
[2017-02-22] MEDS: MoRPHine SULFATE 2 MG/ML CARP IV PRN (02:12)
[2017-02-22 07:20] VITALS: BP 124/68; PULSE 84; TEMP 37; O2SAT 93
--- NOTE | 2017-02-22 08:38 | Surgery Progress Note ---
Surgery Progress Note Date of Service Feb 22, 2017. Subjective + bowel movement (2 yesterday), No nausea, No vomiting Denies abdominal pain Objective Vital Signs: Date Time Temp Pulse Resp B/P (MAP) Pulse Ox O2 Delivery O2 Flow Rate FiO2 02/22/17 07:20 37.0 84 124/68 (86) 93 02/21/17 23:00 Room Air 02/21/17 22:37 36.9 83 18 116/58 (77) 87 Room Air 02/21/17 16:00 Room Air 02/21/17 14:59 37.1 57 18 127/68 (87) 96 02/21/17 08:39 90 Room Air Abdomen: normal bowel sounds, non tender, + distended (mild) Laboratory Results: Results Past 24 Hours Test 02/21/17 14:40 Range/Units Urine Color DK YELLOW Urine Appearance CLEAR CLEAR Urine pH 5.0 4.5-7.5 Urine Specific [place] 1.022 1.000-1.030 Urine Protein NEG NEG Urine Glucose (UA) NEG NEG Urine Ketones 1+ NEG Urine Occult Blood NEG NEG Urine Nitrite NEG NEG Urine Bilirubin NEG NEG Urine Urobilinogen NEG NEG Urine Leukocyte Esterase NEG NEG Assessment & Plan Partially obstructing mass in cecum/ascending colon Bowels moving No symptoms with NGT out For colonoscopy tentatively on Friday Think at this point he would tolerate bowel prep
[2017-02-22 14:48] VITALS: BP 119/65; PULSE 83; TEMP 37.2; O2SAT 91
--- NOTE | 2017-02-22 16:06 | Progress Note ---
Subjective Date of Service: Feb 22, 2017. Subjective went to see pt twice - first was on phone, did not want to interrupt. second time pt sleeping comfortably. surgery input reviewed. in d/w nursing he's doing well has no acute issues. Problem List Medical Problems: (1) Dehydration Status: Acute (2) Elevated liver enzymes Status: Acute (3) Small bowel obstruction Status: Acute Objective Vital Signs Date Time Temp Pulse Resp B/P (MAP) Pulse Ox O2 Delivery O2 Flow Rate FiO2 02/22/17 14:48 37.2 83 18 119/65 (83) 91 02/22/17 08:50 Room Air 02/22/17 07:20 37.0 84 124/68 (86) 93 02/21/17 23:00 Room Air 02/21/17 22:37 36.9 83 18 116/58 (77) 87 Room Air Physical Exam General Appearance: no apparent distress Neck: trachea midline Respiratory/Chest: no respiratory distress, no accessory muscle use Skin: normal color Assessment and Plan - SBO likely due to cecal mass, measures 5cm on CT scan surgery opted not for palliative surgery to alleviate obstruction - d/w GI re ?hopefully stenting full liquids, NGT out for colo friday - CAD with stent in 2016: no angina at baseline holding aspirin and Plavix given potential surgical intervention holding Lipitor for now can resume once PO intake is clearly stable - Bullous emphysema: asymptomatic - Prostate cancer: in remission according to outpatient notes - DVT prophylaxis: Lovenox
[2017-02-22] MEDS: TRAMADOL HCL 50 MG TAB PO PRN (19:41)
[2017-02-22] MEDS: ENOXAPARIN 40 MG/0.4 ML SYR SQ SCH (21:00)
[2017-02-22 23:10] VITALS: BP 117/67; PULSE 87; TEMP 36.6; O2SAT 90
[2017-02-23] MEDS: TRAMADOL HCL 50 MG TAB PO PRN (00:37)
[2017-02-23 06:57] VITALS: BP 119/62; PULSE 76; TEMP 36.4; O2SAT 90
[2017-02-23 07:04] LABS: HEMATOCRIT 31.9 % (42-52); MEAN CORPUSCULAR HGB CONC 32.6 g/dl (32-36); MEAN PLATELET VOLUME 9.4 fL (7.4-10.4); PLATELET COUNT 190 K/uL (130-400); RED BLOOD COUNT 3.71 M/uL (4.7-6.1); WHITE BLOOD COUNT 5.67 K/uL (4.8-10.8)
[2017-02-23 07:38] LABS: CREATININE 0.69 mg/dl (0.60-1.40)
[2017-02-23] MEDS: SODIUM CHLORIDE 0.9% 1000ML 1,000 ML IV SCH (12:59)
[2017-02-23] MEDS: LAVAGE SOLUTION 4000ML PO SCH ×2 (13:30→20:07)
[2017-02-23 15:50] VITALS: BP 154/77; PULSE 85; TEMP 36.5; O2SAT 92
--- NOTE | 2017-02-23 15:59 | Progress Note ---
Subjective Date of Service: Feb 23, 2017. 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 Problem List Medical Problems: (1) Dehydration Status: Acute (2) Elevated liver enzymes Status: Acute (3) Small bowel obstruction Status: Acute Review of Systems all other ROS otherwise negative except for as above Objective Vital Signs Date Time Temp Pulse Resp B/P (MAP) Pulse Ox O2 Delivery O2 Flow Rate FiO2 02/23/17 15:50 36.5 85 18 154/77 (102) 92 Room Air 02/23/17 08:30 Room Air 02/23/17 06:57 36.4 76 18 119/62 (81) 90 02/22/17 23:10 36.6 87 18 117/67 (84) 90 Room Air 02/22/17 23:00 Room Air 02/22/17 19:00 Room Air 02/22/17 16:28 Room Air Physical Exam General Appearance: no apparent distress Eyes: EOMI ENT: hearing grossly normal Neck: trachea midline Respiratory/Chest: no respiratory distress, no accessory muscle use Extremities: normal range of motion Neurologic/Psychiatric: urgent care II-XII nml as tested, alert, normal mood/affect Laboratory Results Last 24 Hours Test 02/23/17 06:40 White Blood Count 5.67 K/uL Red Blood Count 3.71 M/uL Hemoglobin 10.4 g/dL Hematocrit 31.9 % Mean Corpuscular Volume 86.0 fL Mean Corpuscular Hemoglobin 28.0 pg Mean Corpuscular Hemoglobin Concent 32.6 g/dl RDW Standard Deviation 43.0 fL RDW Coefficient of Variation 13.7 % Platelet Count 190 K/uL Mean Platelet Volume 9.4 fL Creatinine 0.69 mg/dl Est Creatinine Clear Calc Drug Dose 70.6 ml/min Estimated GFR () 100.3 Estimated GFR (Non- 86.6 Assessment and Plan - SBO likely due to cecal mass, measures 5cm on CT scan surgery opted not for palliative surgery to alleviate obstruction - d/w GI re ?hopefully stenting bowel prep today for colo friday - CAD with stent in 2016: no angina at baseline holding aspirin and Plavix given potential surgical intervention holding Lipitor for now can resume once PO intake is clearly stable - Bullous emphysema: asymptomatic - Prostate cancer: in remission according to outpatient notes - DVT prophylaxis: Lovenox plan is home once possible after scope, as long as plan to keep obstruction at bay
[2017-02-23 20:00] VITALS: O2SAT 92
[2017-02-23] MEDS: ENOXAPARIN 40 MG/0.4 ML SYR SQ SCH (20:07)
[2017-02-23 23:34] VITALS: BP 130/51; PULSE 70; TEMP 36.7; O2SAT 92
[2017-02-24] MEDS: SODIUM CHLORIDE 0.9% 1000ML 1,000 ML IV SCH (02:12)
[2017-02-24 06:51] VITALS: BP 127/69; PULSE 64; TEMP 36.7; O2SAT 89
[2017-02-24 08:00] VITALS: O2SAT 95
[2017-02-24] MEDS: MoRPHine SULFATE 2 MG/ML CARP IV PRN (08:13)
--- NOTE | 2017-02-24 08:28 | Progress Note ---
Progress Note Date of Service Feb 24, 2017. 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 CEA elevated. Had normal screening colonoscopy <10 yrs ago at [facility], records unavailable. No family hx of colon ca, + dght passed at age 50s w breast ca. He drank about 1/2 of the [employer] prep. His BM per night nurse is yellowish/ brown liquid. VS, labs reviewed. PE: - AAOx3, in NAD - Diminished overall lung sound but no wheezing, crackles, no respiratory distress noted. - Abd soft, non tender, BS present, no mass felt - Bilateral upper and lower extremities w/o edema. Plan for colonoscopy eval by Dr. Farnsworth today. GI will give further recs after procedure is completed. Please keep him NPO until procedure. (Beryl Hobbs, AVRIL) I performed a history and physical examination of the patient, including specifically on physical exam - abdomen is soft.I have discussed the patient's management with Beryl Hobbs. Please refer to the PRINCIPLE SOFTWARE ENGINEER's note for the documented findings and plan of care. Colonoscopy done, found with large, nearly obstructing, malignant looking colon mass in the ascending colon extending from cecum to hepatic flexure and involving the IC valve. Biopsies obtained and the distal margin was tattooed. Recommendations: - Await path results. - Surgery follow up for resection to prevent obstruction. - Oncology consult. - Clear liquid diet for now. (Jorge Farnsworth M.D.)
--- NOTE | 2017-02-24 09:02 | Surgery Progress Note ---
Surgery Progress Note Date of Service Feb 24, 2017. Subjective + feeling well, + complaints (Feels very hungry - would like to eat and go home per patient.), + bowel movement (multiple, loose), + flatus, + pain controlled, + diet (NPO), No nausea, No vomiting HD #4 PSBO - partially obstructing mass in cecum/ascending colon. Reports he is very hungry and cannot wait to eat. Denies any pain, nausea or vomiting at this time. Feels the bowel prep he was given last PM made him slightly nauseous. Reports multiple loose BM since taking the bowel prep. Denies blood in stool or pain with BM. Denies fever, chills. Objective Vital Signs: Date Time Temp Pulse Resp B/P (MAP) Pulse Ox O2 Delivery O2 Flow Rate FiO2 02/24/17 06:51 36.7 64 16 127/69 (88) 89 Room Air 02/23/17 23:34 36.7 70 16 130/51 (77) 92 Room Air 02/23/17 20:00 92 Room Air 02/23/17 16:00 Room Air 02/23/17 15:50 36.5 85 18 154/77 (102) 92 Room Air General Appearance: no apparent distress Head: normocephalic, atraumatic Neck: trachea midline Respiratory/Chest: no respiratory distress, no accessory muscle use Abdomen: normal bowel sounds, non tender, non distended, no organomegaly, no pulsatile mass Diagnostic Interpretation: KUB CLINICAL HISTORY: PSBO bowel obstruction COMPARISON STUDY: 02/20/2017 FINDINGS: The nasogastric tube has been advanced slightly to the mid gastric body. Bowel pattern continues to suggest a partial small bowel obstructive change. There is increased colonic content compared to the prior exam. The degree of distention is similar to improved. IMPRESSION: Mildly improving findings of partial small bowel obstructive change. Nasogastric tube mid stomach. Assessment & Plan HD #4 PSBO - Partially obstructing mass in cecum/ascending colon Stable, doing well. No Nausea, vomiting. appetite intact. NPO for now - Colonoscopy today with Dr. Farnsworth. Slightly nauseous with bowel prep last PM, tolerated otherwise. Awaiting further recommendations from GI following colonoscopy today. Will continue to follow.
--- NOTE | 2017-02-24 10:24 | Endo History and Physical ---
History & Physical Date of Service: Feb 24, 2017. Chief Complaint: Referring Physician: History of Present Illness Abnormal CT scan with possible colonic mass Past Surgical History Hx Cardiac Surgery: Yes (2016 stent) Hx Abdominal Surgery: No Hx Post-Op Nausea and Vomiting: No Hx Cancer Surgery: No Hx Thoracic Surgery: No Hx Orthopedic: Yes (right knee injury) Hx Urinary Tract Surgery: No Social History Smoking Status: Former Smoker Hx Substance Use: Yes (IV morphine) Hx Alcohol Use: Yes (1 beer a day) Allergies Coded Allergies: No Known Allergies (Unverified , 02/20/17) Current Medications Reported Home Medications Medications Dose Route/Sig Max Daily Dose Days Date Category Centrum (Multiple Vitamins W/ Minerals) 1 Tab Tab 1 Tab PO DAILY 02/20/17 Reported Nitrostat (Nitroglycerin) 0.4 Mg Tab 0.4 Mg UT PRN PRN 02/20/17 Reported Lipitor (Atorvastatin Calcium) 80 Mg Tab 80 Mg PO DAILY 02/20/17 Reported Aspirin Chewable (Aspirin) 81 Mg Chew 81 Mg PO DAILY 02/20/17 Reported Plavix (Clopidogrel Bisulfate) 75 Mg Tab 75 Mg PO DAILY 02/20/17 Reported Vital Signs Weight (Kilograms): 65.700 Height (Feet): 5 Height (Inches): 6.00 Date Time Temp Pulse Resp B/P (MAP) Pulse Ox O2 Delivery O2 Flow Rate FiO2 02/24/17 09:37 36.8 77 18 140/66 (90) 94 Room Air 02/24/17 08:00 Room Air 02/24/17 06:51 36.7 64 16 127/69 (88) 89 Room Air 02/23/17 23:34 36.7 70 16 130/51 (77) 92 Room Air 02/23/17 20:00 92 Room Air 02/23/17 16:00 Room Air 02/23/17 15:50 36.5 85 18 154/77 (102) 92 Room Air Physical Exam General Appearance: no apparent distress Respiratory/Chest: Auscultation: breath sounds normal Cardiovascular: Heart Auscultation: RRR Abdomen: Inspection & Palpation: soft, non-distended Assessment and Plan Stable for colonoscopy. No sign of bowel obstruction. I explained risk of perforation, infection and bleeding and he agreed.
[2017-02-24] MEDS ORDERED: ENDOSCOPIC MARKER 5 ML SYR ONE (10:45)
[2017-02-24] MEDS ORDERED: PROPOFOL IV EMULSION 10 MG/ML 20 ML VIAL IV ONE (11:00)
[2017-02-24] MEDS ORDERED: LIDOCAINE HCL 2% 2 ML VIAL (20MG/ML) ONE (11:00)
--- NOTE | 2017-02-24 11:13 | Anesthesiology Progress Note ---
Anesthesia Post Op Note Date & Time Feb 24, 2017 at 11:12 Vital Signs Pain Intensity: 7.0 Vital Signs Past 12 Hours Date Time Temp Pulse Resp B/P (MAP) Pulse Ox O2 Delivery O2 Flow Rate FiO2 02/24/17 11:02 75 16 96/47 (63) 95 Room Air 02/24/17 09:37 36.8 77 18 140/66 (90) 94 Room Air 02/24/17 08:00 Room Air 02/24/17 06:51 36.7 64 16 127/69 (88) 89 Room Air 02/23/17 23:34 36.7 70 16 130/51 (77) 92 Room Air Notes Mental Status: alert / awake / arousable, participated in evaluation Pt Amnestic to Procedure: Yes Nausea / Vomiting: adequately controlled Pain: adequately controlled Airway Patency, RR, SpO2: stable & adequate BP & HR: stable & adequate Hydration State: stable & adequate Anesthetic Complications: no major complications apparent
--- NOTE | 2017-02-24 11:14 | GI REPORT ---
Procedure Date: 02/24/2017 10:16 AM Procedure: Colonoscopy Indications: Abnormal CT of the GI tract Medicines: Monitored Anesthesia Care Complications: No immediate complications. Estimated Blood Loss: Estimated blood loss: none. Procedure: Pre-Anesthesia Assessment: - Prior to the procedure, a History and Physical was performed, and patient medications and allergies were reviewed. The patient is competent. The risks and benefits of the procedure and the sedation options and risks were discussed with the patient. All questions were answered and informed consent was obtained. Patient identification and proposed procedure were verified by the physician and the nurse in the procedure room. Mental Status Examination: alert and oriented. Airway Examination: normal oropharyngeal airway and neck mobility. Respiratory Examination: clear to auscultation. CV Examination: normal. ASA Grade Assessment: III - A patient with severe systemic disease. After reviewing the risks and benefits, the patient was deemed in satisfactory condition to undergo the procedure. The anesthesia plan was to use monitored anesthesia care (MAC). Immediately prior to administration of medications, the patient was re-assessed for adequacy to receive sedatives. The heart rate, respiratory rate, oxygen saturations, blood pressure, adequacy of pulmonary ventilation, and response to care were monitored throughout the procedure. The physical status of the patient was re-assessed after the procedure. After I obtained informed consent, the scope was passed under direct vision. Throughout the procedure, the patient's blood pressure, pulse, and oxygen saturations were monitored continuously. The scope was introduced through the anus and advanced to the cecum, identified by the ileocecal valve. The colonoscopy was performed without difficulty. The patient tolerated the procedure well. The quality of the bowel preparation was good. The ileocecal valve and the rectum were photographed. Findings: The perianal and digital rectal examinations were normal. A fungating, infiltrative and ulcerated partially obstructing large mass was found in the ascending colon, extending from the hepatic flexure to the cecum and involving the ileocecal valve. The mass was partially circumferential and near obstructive. No bleeding was present. Biopsies were taken with a cold forceps for histology. Verification of patient identification for the specimen was done by the physician and nurse using the patient's name and date. The distal margin of the mass was tattooed with an injection of 2 mL of Tory ink. Multiple small and large-mouthed diverticula were found in the sigmoid colon. Non-bleeding internal hemorrhoids were found during retroflexion. The hemorrhoids were large. 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 Biopsied. Tattooed. - Diverticulosis in the sigmoid colon. - Non-bleeding internal hemorrhoids. Recommendation: - [facility]. - Await pathology results. - Refer to a surgeon today (needs resection to prevent obstruction). - Oncology consult. Jorge Farnsworth MD 02/24/2017 11:13:48 AM This report has been signed electronically. Note Initiated On: 02/24/2017 10:16 AM I attest to the content of the Intraoperative Record and orders documented therein, exceptions below
[2017-02-24 12:17] VITALS: BP 124/70; PULSE 96; TEMP 36.3; O2SAT 92
[2017-02-24] MEDS ORDERED: NURSING VERBAL MED ORDER ONE (13:45)
--- NOTE | 2017-02-24 15:32 | Hospitalist Progress Note ---
Hospitalist Progress Note Date of Service Feb 24, 2017. Subjective Pt evaluation today including: conversation w/ patient, physical exam, chart review, lab review, review of studies, conversation w/ behavioral consultant (spoke with Dr. Velazco), review of inpatient medication list Pain: None PO Intake: Tolerating clear liquids Voiding: no voiding problems Patient reports feeling well, denies any complaints. He did not like doing the bowel prep however, and refuses to do it again. He denies any nausea, vomiting or abdominal pain and tolerated a clear liquid lunch following his colonoscopy today. The patient denies fevers, chills, sweats, chest pain, palpitations, claudication, cough, wheezing, shortness of breath, nausea, vomiting, abdominal pain, dysuria, hematuria, urinary retention, paralysis, weakness, numbness and tingling. Additional Comments: See HPI for pertinent positives and negatives. All other systems reviewed and negative. Objective Vital Signs Date Time Temp Pulse Resp B/P (MAP) Pulse Ox O2 Delivery O2 Flow Rate FiO2 02/24/17 12:17 36.3 96 18 124/70 (88) 92 02/24/17 11:32 76 20 129/65 (86) 95 Room Air 02/24/17 11:17 70 20 116/54 (74) 94 Room Air 02/24/17 11:02 75 16 96/47 (63) 95 Room Air 02/24/17 09:37 36.8 77 18 140/66 (90) 94 Room Air 02/24/17 08:00 95 Room Air 02/24/17 06:51 36.7 64 16 127/69 (88) 89 Room Air 02/23/17 23:34 36.7 70 16 130/51 (77) 92 Room Air 02/23/17 20:00 92 Room Air 02/23/17 16:00 Room Air 02/23/17 15:50 36.5 85 18 154/77 (102) 92 Room Air Physical Exam Notes: General appearance: Well-developed, well-nourished, no apparent distress Head: Normocephalic, atraumatic Eyes: Normal inspection, PERRL, EOMI ENT: Normal ENT inspection, hearing grossly normal, pharynx normal Neck: Supple, no JVD, trachea midline Respiratory/Chest: Lungs clear to auscultation, normal breath sounds, no respiratory distress Cardiovascular: +Systolic murmur. Regular rate & rhythm, no gallop Abdomen/GI: Normal bowel sounds, non-tender, soft Extremities/Musculoskeletal: Normal inspection, no calf tenderness, no pedal edema Neurological/Psych: Alert, normal mood/affect, oriented x 3 Skin: Normal color, warm/dry, no rash Diagnostic Results Procedure: Colonoscopy Indications: Abnormal CT of the GI tract Medicines: Monitored Anesthesia Care Complications: No immediate complications. Estimated Blood Loss: Estimated blood loss: none. Procedure: Pre-Anesthesia Assessment: - Prior to the procedure, a History and Physical was performed, and patient medications and allergies were reviewed. The patient is competent. The risks and benefits of the procedure and the sedation options and risks were discussed with the patient. All questions were answered and informed consent was obtained. Patient identification and proposed procedure were verified by the physician and the nurse in the procedure room. Mental Status Examination: alert and oriented. Airway Examination: normal oropharyngeal airway and neck mobility. Respiratory Examination: clear to auscultation. CV Examination: normal. ASA Grade Assessment: III - A patient with severe systemic disease. After reviewing the risks and benefits, the patient was deemed in satisfactory condition to undergo the procedure. The anesthesia plan was to use monitored anesthesia care (MAC). Immediately prior to administration of medications, the patient was re-assessed for adequacy to receive sedatives. The heart rate, respiratory rate, oxygen saturations, blood pressure, adequacy of pulmonary ventilation, and response to care were monitored throughout the procedure. The physical status of the patient was re-assessed after the procedure. After I obtained informed consent, the scope was passed under direct vision. Throughout the procedure, the patient's blood pressure, pulse, and oxygen saturations were monitored continuously. The scope was introduced through the anus and advanced to the cecum, identified by the ileocecal valve. The colonoscopy was performed without difficulty. The patient tolerated the procedure well. The quality of the bowel preparation was good. The ileocecal valve and the rectum were photographed. Findings: The perianal and digital rectal examinations were normal. A fungating, infiltrative and ulcerated partially obstructing large mass was found in the ascending colon, extending from the hepatic flexure to the cecum and involving the ileocecal valve. The mass was partially circumferential and near obstructive. No bleeding was present. Biopsies were taken with a cold forceps for histology. Verification of patient identification for the specimen was done by the physician and nurse using the patient's name and date. The distal margin of the mass was tattooed with an injection of 2 mL of Tory ink. Multiple small and large-mouthed diverticula were found in the sigmoid colon. Non-bleeding internal hemorrhoids were found during retroflexion. The hemorrhoids were large. 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 Biopsied. Tattooed. - Diverticulosis in the sigmoid colon. - Non-bleeding internal hemorrhoids. Recommendation: - [facility]. - Await pathology results. - Refer to a surgeon today (needs resection to prevent obstruction). - Oncology consult. Assessment and Plan 86 y/o male with a history of CAD s/p stent Dec 2015, HTN, HLD, COPD and prostate cancer who presents with small bowel obstruction. Small bowel obstruction -Admit to med/surg -CT abdomen/pelvis shows partial SBO, potential 5 cm lesion of cecum/ascending colon, findings suggesting liver mets -NGT removed 02/22 -GI consulted, appreciate recs: Colonoscopy today show fungating, infiltrative , ulcerated and partially obstructing mass from hepatic flexure to cecum involving the ileocecal valve. Biopsies taken. Refer to surgeon and oncology. -General surgery consulted, appreciate recs: Saw pt with Dr. Velazco in room. Will plan on surgery Friday, 02/26. Will need cardiology pre op clearance. Can advance to full liquid diet. Recommend adding protein drink TID. -Would hold off on oncology consult for now as pathology pending -Boost TID CAD s/p stent 12/18/15--stable -Hold ASA and Plavix due to upcoming procedure -Resume Lipitor 80 mg PO hs -Cardiology consulted for cardiac pre op clearance per general surgery request HTN, HLD--stable COPD--stable -O2 by protocol H/o prostate cancer--in remission DVT prophylaxis -Enoxaparin 40 mg SC q24h, will hold day of surgery Code Status -Level I, FULL RESUSCITATION STATUS
[2017-02-24 15:40] VITALS: BP 121/71; PULSE 72; TEMP 36.5; O2SAT 93
[2017-02-24] MEDS: BOOST VANILLA PO SCH ×2 (17:26)
[2017-02-24] MEDS: ENOXAPARIN 40 MG/0.4 ML SYR SQ SCH (20:17)
[2017-02-25 00:09] VITALS: BP 135/76; PULSE 87; TEMP 37.1; O2SAT 92
[2017-02-25 07:04] LABS: HEMATOCRIT 30.8 % (42-52); MEAN CELL VOLUME 85.1 fL (80-100); MEAN CORPUSCULAR HEMOGLOBIN 28.5 pg (25-34); MEAN CORPUSCULAR HGB CONC 33.4 g/dl (32-36); MEAN PLATELET VOLUME 9.5 fL (7.4-10.4); PLATELET COUNT 184 K/uL (130-400); RED BLOOD COUNT 3.62 M/uL (4.7-6.1); WHITE BLOOD COUNT 5.35 K/uL (4.8-10.8)
[2017-02-25 07:23] VITALS: BP 139/73; PULSE 76; TEMP 36.7; O2SAT 91
[2017-02-25 07:34] LABS: CALCIUM 7.9 mg/dl (8.5-10.1); CREATININE 0.62 mg/dl (0.60-1.40); POTASSIUM 3.5 mmol/L (3.5-5.1)
[2017-02-25] MEDS: BOOST VANILLA PO SCH ×2 (07:54)
[2017-02-25] MEDS: ATORVASTATIN 40 MG TAB PO SCH (07:55)
[2017-02-25] MEDS: ONDANSETRON INJ 2 MG/ML 2 ML VIAL IV PRN (07:55)
--- NOTE | 2017-02-25 09:29 | Surgery Progress Note ---
Surgery Progress Note Date of Service Feb 25, 2017. Subjective bloated after having Boost, minimal flatus, no BM since colonoscopy Objective Vital Signs: Date Time Temp Pulse Resp B/P (MAP) Pulse Ox O2 Delivery O2 Flow Rate FiO2 02/25/17 07:23 36.7 76 18 139/73 (95) 91 Room Air 02/25/17 00:09 37.1 87 20 135/76 (95) 92 Room Air 02/25/17 00:00 Room Air 02/24/17 16:00 Room Air 02/24/17 15:40 36.5 72 18 121/71 (88) 93 Room Air 02/24/17 12:17 36.3 96 18 124/70 (88) 92 02/24/17 11:32 76 20 129/65 (86) 95 Room Air 02/24/17 11:17 70 20 116/54 (74) 94 Room Air 02/24/17 11:02 75 16 96/47 (63) 95 Room Air 02/24/17 09:37 36.8 77 18 140/66 (90) 94 Room Air Abdomen: soft, + distended (slighlty) Laboratory Results: Results Past 24 Hours Test 02/25/17 06:39 Range/Units White Blood Count 5.35 4.8-10.8 K/uL Red Blood Count 3.62 4.7-6.1 M/uL Hemoglobin 10.3 14.0-18.0 g/dL Hematocrit 30.8 42-52 % Mean Corpuscular Volume 85.1 80-100 fL Mean Corpuscular Hemoglobin 28.5 25-34 pg Mean Corpuscular Hemoglobin Concent 33.4 32-36 g/dl RDW Standard Deviation 43.2 36.4-46.3 fL RDW Coefficient of Variation 13.9 11.5-14.5 % Platelet Count 184 130-400 K/uL Mean Platelet Volume 9.5 7.4-10.4 fL Sodium Level 137 136-145 mmol/L Potassium Level 3.5 3.5-5.1 mmol/L Chloride Level 104 98-107 mmol/L Carbon Dioxide Level 25 21-32 mmol/L Anion Gap 7.0 3-11 mmol/L Blood Urea Nitrogen 4 7-18 mg/dl Creatinine 0.62 0.60-1.40 mg/dl Est Creatinine Clear Calc Drug Dose 78.6 ml/min Estimated GFR () 104.8 Estimated GFR (Non- 90.5 BUN/Creatinine Ratio 6.0 10-20 Random Glucose 97 70-99 mg/dl Calcium Level 7.9 8.5-10.1 mg/dl Assessment & Plan cecal/ascending colon mass, partially obstructing resection scheduled for tomorrow hold Lovenox tonight will d/c Boost
--- NOTE | 2017-02-25 11:01 | Cardiology Consultation ---
Cardiology Consultation Date of Consultation: Feb 25, 2017. Reason for Consultation: CAD, Pre-op eval Pt evaluation today including: conversation w/ patient, physical exam, chart review, lab review, review of studies, conversation w/ it consultant, review of inpatient medication list History of Present Illness The patient is an 86-year-old gentleman with a known history of cardiac disease to include coronary artery disease and associated symptoms. He presented to [facility] several days ago with evidence of partial small- bowel obstruction. Evaluation to date has revealed a colonic mass which is partially obstructing. There is also evidence of metastatic lesions involving the liver of what appears to be colon cancer. Patient is scheduled for resection of his colonic mass tomorrow as palliative therapy. I was asked to evaluate the patient regarding his sreedhar operative cardiac risk. Patient states that approximately 10 days ago he began experience symptoms of obstruction. This was initially manifest as stomach discomfort and vomiting. He also has not had a bowel movement over this period of time. Initially associated with eating pepperoni pizza, but his symptoms progressed he became distended and had significant abdominal discomfort. Upon initial evaluation he was discovered to have a partial small-bowel obstruction underwent nasogastric decompression. A CT scan obtained at the time of admission revealed evidence of lesions in the liver and a mass in the cecum. Colonoscopy revealed a cecal mass and biopsies were taken. Based on concerns over recurrent obstruction the patient is currently scheduled for colon resection tomorrow. Approximately 18 months ago the patient began to be concerned about dyspnea on exertion. Outpatient evaluation involved noninvasive stress testing suggestive of ischemia. Patient progressed to angiography and eventual percutaneous intervention involving the left main coronary artery. Patient states that his symptoms of dyspnea have not improved or worsened since his initial evaluation or percutaneous intervention. He is an active individual and reports walking on a treadmill routinely at home. He walks at a slight grade at 2 miles/hour for 30 minutes a day. He does not have limiting dyspnea with his activity. He has never report symptoms of chest pain. He denies any symptoms orthopnea or paroxysmal nocturnal dyspnea. He has not had any swelling of lower extremities. He denies any sense of palpitation. He has not had any recent dizziness or lightheadedness. He has not suffered a syncopal episode. This morning the patient is somewhat tired. He is frustrated that he has not been able to eat more. He does not have much of an appetite and attempting to drink high protein beverage yesterday resulted in abdominal discomfort. He has not had any additional vomiting. He has not had a bowel movement. Past Medical/Surgical History Prostate cancer Hypertension Bolus emphysema, severe Osteoarthritis Spinal stenosis Cataract Coronary artery disease Patient underwent stress echocardiography last year suggestive of reversible ischemia in the inferoseptal distribution. This resulted in coronary angiography which revealed significant three-vessel disease including left main stenosis. Patient was advised to undergo surgical revascularization but refused. Patient subsequently underwent high risk left main stenting in December of 2015. This also involved balloon angioplasty of the 2nd OM branch. He is noted to have 100 percent occlusion of the right coronary artery. He appears to be residual stenosis in the left anterior descending. Past surgical history Tonsillectomy Percutaneous intervention noted above Family History Patient had a brother who approximately 4 years ago of cardiovascular complications. 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 All Other Systems: Reviewed and Negative Allergies Coded Allergies: No Known Allergies (Unverified , 02/20/17) Medications Current Inpatient Medications Medications (Trade) Dose Ordered Sig/Maciej Route Start Time Stop Time Status Last Admin Dose Admin Ondansetron HCl (Zofran Inj) 4 mg Q6H PRN IV 02/20/17 11:30 03/22/17 11:29 02/25/17 07:55 4 MG Morphine Sulfate (MoRPHine SULFATE INJ) 2 mg Q4 PRN IV 02/20/17 11:30 03/06/17 11:29 02/24/17 08:13 2 MG Tramadol HCl (Ultram Tab) 25 mg Q4H PRN PO 02/21/17 18:30 03/23/17 18:29 02/23/17 00:37 25 MG Acetaminophen (Tylenol Tab) 650 mg Q4H PRN PO 02/21/17 18:30 03/23/17 18:29 Atorvastatin Calcium (Lipitor Tab) 80 mg DAILY PO 02/25/17 09:00 03/27/17 08:59 02/25/17 07:55 80 MG Lactated Ringer's 1,000 ml @ 100 mls/hr Q10H IV 02/26/17 06:00 1/19/18 05:59 Physical Exam Vital Signs Past 12 Hours Date Time Temp Pulse Resp B/P (MAP) Pulse Ox O2 Delivery O2 Flow Rate FiO2 02/25/17 07:23 36.7 76 18 139/73 (95) 91 Room Air 02/25/17 00:09 37.1 87 20 135/76 (95) 92 Room Air 02/25/17 00:00 Room Air Lungs: Auscultation: breath sounds normal Abdomen: Inspection & Palpation: soft, non-distended The patient is alert and oriented. Mood and affect appeared normal. He answered all questions appropriately. HEENT: Pupils are equal and reactive to light and accommodation. Extraocular movements are intact. The sclerae are anicteric. Neuro: Cranial nerves intact Neck: Patient's neck is supple. He has palpable carotid pulses bilaterally without bruits on auscultation. There is no evidence of jugular venous distention. The thyroid is not enlarged. Lungs: Clear to auscultation bilaterally. He has good air movement without use of accessory muscles. No rales wheezes or rhonchi. Cardiac: Heart demonstrates a regular rate and rhythm. Normal S1 and S2. No murmurs on examination. Pulses: The patient has palpable radial pulses bilaterally that are equal in intensity Extremities: There was no evidence of hypoperfusion. There is no cyanosis or clubbing. There is no edema. Skin: I did not appreciate any rashes on examination today. Data Laboratory Results: Last 24 Hours Test 02/25/17 06:39 White Blood Count 5.35 K/uL Red Blood Count 3.62 M/uL Hemoglobin 10.3 g/dL Hematocrit 30.8 % Mean Corpuscular Volume 85.1 fL Mean Corpuscular Hemoglobin 28.5 pg Mean Corpuscular Hemoglobin Concent 33.4 g/dl RDW Standard Deviation 43.2 fL RDW Coefficient of Variation 13.9 % Platelet Count 184 K/uL Mean Platelet Volume 9.5 fL Sodium Level 137 mmol/L Potassium Level 3.5 mmol/L Chloride Level 104 mmol/L Carbon Dioxide Level 25 mmol/L Anion Gap 7.0 mmol/L Blood Urea Nitrogen 4 mg/dl Creatinine 0.62 mg/dl Est Creatinine Clear Calc Drug Dose 78.6 ml/min Estimated GFR () 104.8 Estimated GFR (Non- 90.5 BUN/Creatinine Ratio 6.0 Random Glucose 97 mg/dl Calcium Level 7.9 mg/dl Imaging: Chest x-ray obtained at time admission suggest an element of emphysema. CT abdomen suggestive of metastatic lesions in the liver and colonic mass EKG: Normal sinus rhythm with first-degree AV block and right bundle branch block Assessment & Plan 1. Coronary disease: Patient is known to have fairly significant coronary artery disease. There is some debate whether all of his symptoms of dyspnea are his anginal equivalent. He is known to have severe COPD as well. He did undergo an element of revascularization without notable improvement in his dyspnea. He has been maintained on dual anti-platelet therapy and high-dose atorvastatin. He has not had any new symptoms recently. Overall his coronary disease appears to be stable. As his percutaneous intervention involved a bare metal stent over 1 year ago it would be reasonable to stop the aspirin and Plavix to accommodate his surgery. In fact, the patient is not actually taking any of these medications for approximately 10 days due to his bowel obstruction. Re-initiation of aspirin as soon as it is deemed safe by the surgeons would be desirable in the postoperative period. 2. First degree AV block: Patient does have an element of conduction disease which involved a first-degree AV block and right bundle branch block. He has no symptoms related to this conduction disease. He has no evidence of higher degree heart block. He has not experienced syncope or presyncope. Given his known ischemic heart disease and possible symptoms associated with his coronary disease, he would ideally be on a beta-jason. I suspect this therapy has been deferred given his conduction disease. No specific intervention is required in the absence of symptoms or higher degree AV block. 3. Perioperative recommendations: I think the patient is at moderate risk for perioperative cardiac events. This is based on his known coronary disease and the absence of complete revascularization. He has had a stress test in the past which was abnormal. No reassessment has been performed since his stent was placed. His symptoms have not changed. Does not appear to have any high risk features such as an unstable coronary syndrome, severe valvular heart disease, significant arrhythmias or decompensated heart failure. He is able perform a fairly mild workload on a routine basis without notable symptom. However, he is known to have severe coronary disease that was not entirely revascularized with the procedure noted above. Therefore, he would appear to be at a slightly higher risk of perioperative events in this regard. I would estimate his chance of a perioperative infarct at 3-5%. I do not believe any additional testing is warranted. Do not believe there is any additional therapy which is likely to mitigate his risk in the perioperative period. This is especially true given the time sensitive nature of his surgery. I certainly do not think the patient has the option of additional evaluation or revascularization in the time. Required for adequate palliation. As with all patients in this setting I would advocate careful monitoring of his vital signs to avoid significant hypotension, hypertension, tachycardia, hypoxia and significant anemia. All of these things would optimize his myocardial oxygen delivery and limit the myocardial oxygen demand.
--- NOTE | 2017-02-25 13:04 | Anesthesiology Progress Note ---
Anesthesia Progress Note Date of Service Feb 25, 2017. Progress Notes Mr. Jean is scheduled for right lap hemicolectomy on 02/26/17. NKDA. No anesthetic problems. PMH sig for COPD, SOB, HTN, HLD, CAD, OA and prostate cancer. Patient had cardiac cath with 1 stent placed in 2016 (dec). He is a former smoker but quit over 50 years ago. Gets mild SOB with stairs and uses cane for ambulation. EKG shows HR of 105 BPM, LAD, RBBB and nonspecific ST changes. Airway exam notable for MP 2 with decreased neck extension. He also has upper and lower partials. Plan for GETA. Consent obtained. Questions answered. Appears optimized for surgery tomorrow.
--- NOTE | 2017-02-25 13:44 | Hospitalist Progress Note ---
Hospitalist Progress Note Date of Service Feb 25, 2017. Subjective Pt evaluation today including: conversation w/ patient, physical exam, chart review, lab review, review of inpatient medication list Pain: None PO Intake: Tolerating clear liquids Voiding: no voiding problems Patient reports feeling well, although he is frustrated with his prolonged hospital stay and liquid diet. He denies any abdominal pain, nausea or vomiting. He is tolerating a liquid diet well. He has not yet had a bowel movement since his colonoscopy yet but is passing gas. He denies any other complaints. The patient denies fevers, chills, sweats, chest pain, palpitations , claudication, cough, wheezing, shortness of breath, nausea, vomiting, abdominal pain, dysuria, hematuria, urinary retention, paralysis, weakness, numbness and tingling. Additional Comments: See HPI for pertinent positives and negatives. All other systems reviewed and negative. Objective Vital Signs Date Time Temp Pulse Resp B/P (MAP) Pulse Ox O2 Delivery O2 Flow Rate FiO2 02/25/17 11:43 Room Air 02/25/17 07:23 36.7 76 18 139/73 (95) 91 Room Air 02/25/17 00:09 37.1 87 20 135/76 (95) 92 Room Air 02/25/17 00:00 Room Air 02/24/17 16:00 Room Air 02/24/17 15:40 36.5 72 18 121/71 (88) 93 Room Air Physical Exam Notes: General appearance: Well-developed, well-nourished, no apparent distress Head: Normocephalic, atraumatic Eyes: Normal inspection, PERRL, EOMI ENT: Normal ENT inspection, hearing grossly normal, pharynx normal Neck: Supple, no JVD, trachea midline Respiratory/Chest: Lungs clear to auscultation, normal breath sounds, no respiratory distress Cardiovascular: +Systolic murmur. Regular rate & rhythm, no gallop Abdomen/GI: Normal bowel sounds, non-tender, soft Extremities/Musculoskeletal: Normal inspection, no calf tenderness, no pedal edema Neurological/Psych: Alert, normal mood/affect, oriented x 3 Skin: Normal color, warm/dry, no rash Laboratory Results Last 24 Hours Test 02/25/17 06:39 White Blood Count 5.35 K/uL Red Blood Count 3.62 M/uL Hemoglobin 10.3 g/dL Hematocrit 30.8 % Mean Corpuscular Volume 85.1 fL Mean Corpuscular Hemoglobin 28.5 pg Mean Corpuscular Hemoglobin Concent 33.4 g/dl RDW Standard Deviation 43.2 fL RDW Coefficient of Variation 13.9 % Platelet Count 184 K/uL Mean Platelet Volume 9.5 fL Sodium Level 137 mmol/L Potassium Level 3.5 mmol/L Chloride Level 104 mmol/L Carbon Dioxide Level 25 mmol/L Anion Gap 7.0 mmol/L Blood Urea Nitrogen 4 mg/dl Creatinine 0.62 mg/dl Est Creatinine Clear Calc Drug Dose 78.6 ml/min Estimated GFR () 104.8 Estimated GFR (Non- 90.5 BUN/Creatinine Ratio 6.0 Random Glucose 97 mg/dl Calcium Level 7.9 mg/dl Assessment and Plan 86 y/o male with a history of CAD s/p stent Dec 2015, HTN, HLD, COPD and prostate cancer who presents with small bowel obstruction. Small bowel obstruction--ongoing -Admit to med/surg -CT abdomen/pelvis shows partial SBO, potential 5 cm lesion of cecum/ascending colon, findings suggesting liver mets -NGT removed 02/22 -GI consulted, appreciate recs: Colonoscopy shows fungating, infiltrative, ulcerated and partially obstructing mass from hepatic flexure to cecum involving the ileocecal valve. Biopsies taken. Refer to surgeon and oncology. -General surgery consulted, appreciate recs: Resection tomorrow. Hold Lovenox dose tonight -Would hold off on oncology consult for now as pathology pending -Boost TID -NPO after midnight, diet decreased to clear liquids for colon resection tomorrow -LR at 100 cc/hr CAD s/p stent 12/18/15--stable -Hold ASA and Plavix due to upcoming procedure -Continue Lipitor 80 mg PO hs -Cardiology consulted for cardiac pre op clearance: Echo ordered. Moderate risk for perioperative cardiac event. No further testing or intervention at this time. Resume aspirin when ok with surgery. HTN, HLD--stable COPD--stable -O2 by protocol H/o prostate cancer--in remission DVT prophylaxis -Enoxaparin 40 mg SC q24h, will hold prior to surgery Code Status -Level I, FULL RESUSCITATION STATUS
--- NOTE | 2017-02-25 14:41 | ECHOCARDIOGRAM REPORT ---
*NOTICE TO RECEIVING DEMOCRAT AGENCY This information is strictly Confidential and protected under [place] law. [place] law prohibits you from making any further disclosure of this information unless further disclosure is expressly permitted by the written consent of the person to whom it pertains or is authorized by law. A general authorization for the release of medical or other information is not sufficient for this purpose. Hospital accepts no responsibility if the information is made available to any other person, INCLUDING THE PATIENT. Interpretation Summary * Name: SYLVIE OROZCO Study Date: 02/25/2017 12:23 PM BP: 139/73 mmHg * Patient Location: .MS2W\S\W261\S\1 HR: 76 * : 1930 (M/d/yyyy) Gender: Male Height: 66 in * Age: 86 yrs Ethnicity: [place] Weight: 144 lb * Ordering Physician: Reymundo Catalan * Referring Physician: Self, Referred * Performed By: Stephanie Ya RDCS * * Reason For Study: CHF * BSA: 1.7 m2 * -- Conclusions -- * 1. Normal LV size. Borderline concentric LVH. * 2. LVEF 55-60%. Severe basal inferior, inferolateral hypokinesis. Mild hypokinesis of mid inferolateral wall and base to mid lateral wall. * 3. Normal RV size and function. * 4. Mild to moderate mitral regurgitation. * 5. Mild TR. Borderline pulmonary hypertension. Est PASP 35-40 mmHg. Normal est CVP. * 6. No prior studies for comparison. Procedure Details * A complete two-dimensional transthoracic echocardiogram was performed (2D, M-mode, Doppler and color flow Doppler). Left Ventricle * The left ventricle is grossly normal size. * There is borderline concentric left ventricular hypertrophy. * Ejection Fraction = 55-60%. * Severe basal inferior, inferolateral hypokinesis. Mild hypokinesis of mid inferolateral wall and base to mid lateral wall. Right Ventricle * The right ventricle is grossly normal size. * The right ventricular systolic function is normal as assessed by tricuspid annular plane systolic excursion (TAPSE) (normal >1.5 cm). Atria * The left atrium is mildly dilated. * Right atrial size is normal. Mitral Valve * The mitral valve anatomy is normal. * There is no mitral valve stenosis. * There is mild to moderate mitral regurgitation. Tricuspid Valve * There is mild tricuspid regurgitation. Aortic Valve * The aortic valve opens well. * The aortic valve is trileaflet. * No hemodynamically significant valvular aortic stenosis. * There is no significant aortic regurgitation. Pulmonic Valve * The pulmonary valve is inadequately visualized, but the Doppler data is adequate for interpretation. * Pulmonic stenosis is absent. * There is no significant pulmonary regurgitation. Great Vessels * The aortic root and proximal ascending aorta are normal sized. Pericardium/Pleural * There is no pericardial effusion. Great Vessels * Normal inferior vena cava size and collapsability with sniff indicates a normal right atrial pressure of 3 mmHg Left Ventricular Diastolic Function * Grade I diastolic dysfunction, (abnormal relaxation pattern). MMode 2D Measurements and Calculations IVSd 1.2 cm IVSs 1.8 cm LVIDd 5.5 cm LVIDs 3.8 cm LVPWd 0.83 cm LVPWs 1.3 cm IVS/LVPW 1.5 FS 30.8 % EDV(Teich) 150.4 ml ESV(Teich) 63.4 ml EF(Teich) 57.8 % EDV(cubed) 170.8 ml ESV(cubed) 56.5 ml EF(cubed) 66.9 % % IVS thick 45.8 % % LVPW thick 51.1 % LV mass(C)d 225.9 grams LV mass(C)dI 129.9 grams/m\S\2 LV mass(C)s 226.3 grams LV mass(C)sI 130.1 grams/m\S\2 SV(Teich) 87.0 ml SI(Teich) 50.0 ml/m\S\2 SV(cubed) 114.3 ml SI(cubed) 65.7 ml/m\S\2 Ao root diam 3.9 cm Ao root area 11.8 cm\S\2 LA dimension 4.1 cm LA/Ao 1.1 LVAd ap4 35.4 cm\S\2 LVLd ap4 8.4 cm EDV(MOD-sp4) 125.9 ml EDV(sp4-el) 126.3 ml LVAs ap4 20.2 cm\S\2 LVLs ap4 7.3 cm ESV(MOD-sp4) 51.7 ml ESV(sp4-el) 47.8 ml EF(MOD-sp4) 59.0 % EF(sp4-el) 62.1 % LVAd ap2 30.5 cm\S\2 LVLd ap2 8.4 cm EDV(MOD-sp2) 94.9 ml EDV(sp2-el) 93.6 ml LVAs ap2 19.6 cm\S\2 LVLs ap2 8.2 cm ESV(MOD-sp2) 47.4 ml ESV(sp2-el) 39.9 ml EF(MOD-sp2) 50.1 % EF(sp2-el) 57.4 % LVLd %diff 0.31 % EDV(MOD-bp) 109.4 ml LVLs %diff 10.9 % ESV(MOD-bp) 49.6 ml EF(MOD-bp) 54.7 % SV(MOD-sp4) 74.3 ml SI(MOD-sp4) 42.7 ml/m\S\2 SV(MOD-sp2) 47.5 ml SI(MOD-sp2) 27.3 ml/m\S\2 SV(MOD-bp) 59.9 ml SI(MOD-bp) 34.4 ml/m\S\2 SV(sp4-el) 78.5 ml SI(sp4-el) 45.1 ml/m\S\2 SV(sp2-el) 53.7 ml SI(sp2-el) 30.9 ml/m\S\2 Doppler Measurements and Calculations MV E max myles 42.1 cm/sec MV A max myles 70.9 cm/sec MV E/A 0.59 MV dec time 0.27 sec Ao V2 max 104.2 cm/sec Ao max PG 4.3 mmHg Ao max PG (full) 1.7 mmHg LV V1 max PG 2.7 mmHg LV V1 max 81.7 cm/sec TR max myles 293.3 cm/sec
[2017-02-25 15:48] VITALS: BP 97/56; PULSE 86; TEMP 36.5; O2SAT 91
[2017-02-25] MEDS: BOOST BREEZE NUTRITION DRINK 1 BOX PO SCH (18:09)
[2017-02-25] MEDS: TRAMADOL HCL 50 MG TAB PO PRN (23:06)
[2017-02-25 23:40] VITALS: BP 126/67; PULSE 84; TEMP 37; O2SAT 92
[2017-02-26] VITALS (7 sets, daily range): BP systolic 104–127; BP diastolic 55–71; PULSE 72–92; TEMP 36.3–37.1; O2SAT 90–98
[2017-02-26] MEDS: LACTATED RINGER'S 1000ML 1,000 ML IV SCH ×3 (06:13→23:54)
[2017-02-26 06:46] LABS: HEMATOCRIT 30.8 % (42-52); MEAN CELL VOLUME 85.6 fL (80-100); MEAN CORPUSCULAR HEMOGLOBIN 28.1 pg (25-34); MEAN CORPUSCULAR HGB CONC 32.8 g/dl (32-36); MEAN PLATELET VOLUME 9.5 fL (7.4-10.4); PLATELET COUNT 203 K/uL (130-400); WHITE BLOOD COUNT 5.47 K/uL (4.8-10.8)
[2017-02-26] MEDS ORDERED: ACETAMINOPHEN 1000 MG/100 ML IV IV ONE (06:48)
[2017-02-26 07:14] LABS: BUN/CREATININE RATIO 7.2 (10-20); CALCIUM 8.1 mg/dl (8.5-10.1); CREATININE 0.6 mg/dl (0.60-1.40); POTASSIUM 3.8 mmol/L (3.5-5.1)
[2017-02-26] MEDS: ATORVASTATIN 40 MG TAB PO SCH (09:00)
[2017-02-26] MEDS: BOOST BREEZE NUTRITION DRINK 1 BOX PO SCH ×2 (09:01→11:10)
--- NOTE | 2017-02-26 09:33 | Gastroenterology Progress Note ---
Gastroenterology Progress Note I have seen the patient today and discussed with him the results of the biopsy of the colonoscopy I performed which is consistent with poory differentiated adeno Ca. He is being followed by surgical team and planned for resection today. Would also suggest Oncology evaluation. Please recall GI if any questions or concerns.
--- NOTE | 2017-02-26 09:47 | Hospitalist Progress Note ---
Hospitalist Progress Note Date of Service Feb 26, 2017. Subjective Pt evaluation today including: conversation w/ patient, physical exam, chart review, lab review, review of studies, conversation w/ cassandra consultant (spoke with Dr. Padilla), review of inpatient medication list Pain: None PO Intake: NPO for surgery Voiding: no voiding problems Patient complains of being hungry and wants to eat. He is being kept NPO for his colon resection today. He otherwise denies complaints. He has not had a bowel movement since having his colonoscopy but has only been on a liquid diet. He is urinating and passing gas. Patient seen with Dr. Padilla from oncology. The patient denies fevers, chills, sweats, chest pain, palpitations, claudication, cough, wheezing, shortness of breath, nausea, vomiting, abdominal pain, dysuria, hematuria, urinary retention, paralysis, weakness, numbness and tingling. Additional Comments: See HPI for pertinent positives and negatives. All other systems reviewed and negative. Objective Vital Signs Date Time Temp Pulse Resp B/P (MAP) Pulse Ox O2 Delivery O2 Flow Rate FiO2 02/26/17 07:43 36.7 72 20 104/55 (71) 90 Room Air 02/26/17 00:00 Room Air 02/25/17 23:40 37.0 84 20 126/67 (86) 92 Room Air 02/25/17 20:00 Room Air 02/25/17 16:00 Room Air 02/25/17 15:48 36.5 86 20 97/56 (70) 91 Room Air 02/25/17 11:43 Room Air Physical Exam Notes: General appearance: Well-developed, well-nourished, no apparent distress Head: Normocephalic, atraumatic Eyes: Normal inspection, PERRL, EOMI ENT: Normal ENT inspection, hearing grossly normal, pharynx normal Neck: Supple, no JVD, trachea midline Respiratory/Chest: Lungs clear to auscultation, normal breath sounds, no respiratory distress Cardiovascular: +Systolic murmur. Regular rate & rhythm, no gallop Abdomen/GI: Normal bowel sounds, non-tender, soft Extremities/Musculoskeletal: Normal inspection, no calf tenderness, no pedal edema Neurological/Psych: Alert, normal mood/affect, oriented x 3 Skin: Normal color, warm/dry, no rash Laboratory Results Last 24 Hours Test 02/26/17 06:18 White Blood Count 5.47 K/uL Red Blood Count 3.60 M/uL Hemoglobin 10.1 g/dL Hematocrit 30.8 % Mean Corpuscular Volume 85.6 fL Mean Corpuscular Hemoglobin 28.1 pg Mean Corpuscular Hemoglobin Concent 32.8 g/dl RDW Standard Deviation 43.3 fL RDW Coefficient of Variation 13.9 % Platelet Count 203 K/uL Mean Platelet Volume 9.5 fL Sodium Level 137 mmol/L Potassium Level 3.8 mmol/L Chloride Level 103 mmol/L Carbon Dioxide Level 27 mmol/L Anion Gap 7.0 mmol/L Blood Urea Nitrogen 4 mg/dl Creatinine 0.60 mg/dl Est Creatinine Clear Calc Drug Dose 81.2 ml/min Estimated GFR () 106.3 Estimated GFR (Non- 91.7 BUN/Creatinine Ratio 7.2 Random Glucose 90 mg/dl Calcium Level 8.1 mg/dl Diagnostic Results Echocardiogram: Interpretation Summary * Name: SYLVIE OROZCO Study Date: 02/25/2017 12:23 PM BP: 139/73 mmHg * Patient Location: MS2W\S\W261\S\1 HR: 76 * : 1930 (M/d/yyyy) Gender: Male Height: 66 in * Age: 86 yrs Ethnicity: [place] Weight: 144 lb * Ordering Physician: Reymundo Catalan * Referring Physician: Self, Referred * Performed By: Stephanie Ya RDCS * * Reason For Study: CHF * BSA: 1.7 m2 * -- Conclusions -- * 1. Normal LV size. Borderline concentric LVH. * 2. LVEF 55-60%. Severe basal inferior, inferolateral hypokinesis. Mild hypokinesis of mid inferolateral wall and base to mid lateral wall. * 3. Normal RV size and function. * 4. Mild to moderate mitral regurgitation. * 5. Mild TR. Borderline pulmonary hypertension. Est PASP 35-40 mmHg. Normal est CVP. * 6. No prior studies for comparison. Procedure Details * A complete two-dimensional transthoracic echocardiogram was performed (2D, M-mode, Doppler and color flow Doppler). Left Ventricle * The left ventricle is grossly normal size. * There is borderline concentric left ventricular hypertrophy. * Ejection Fraction = 55-60%. * Severe basal inferior, inferolateral hypokinesis. Mild hypokinesis of mid inferolateral wall and base to mid lateral wall. Right Ventricle * The right ventricle is grossly normal size. * The right ventricular systolic function is normal as assessed by tricuspid annular plane systolic excursion (TAPSE) (normal >1.5 cm). Atria * The left atrium is mildly dilated. * Right atrial size is normal. Mitral Valve * The mitral valve anatomy is normal. * There is no mitral valve stenosis. * There is mild to moderate mitral regurgitation. Tricuspid Valve * There is mild tricuspid regurgitation. Aortic Valve * The aortic valve opens well. * The aortic valve is trileaflet. * No hemodynamically significant valvular aortic stenosis. * There is no significant aortic regurgitation. Pulmonic Valve * The pulmonary valve is inadequately visualized, but the Doppler data is adequate for interpretation. * Pulmonic stenosis is absent. * There is no significant pulmonary regurgitation. Great Vessels * The aortic root and proximal ascending aorta are normal sized. Pericardium/Pleural * There is no pericardial effusion. Great Vessels * Normal inferior vena cava size and collapsability with sniff indicates a normal right atrial pressure of 3 mmHg Left Ventricular Diastolic Function * Grade I diastolic dysfunction, (abnormal relaxation pattern). Assessment and Plan 86 y/o male with a history of CAD s/p stent Dec 2015, HTN, HLD, COPD and prostate cancer who presents with small bowel obstruction. Small bowel obstruction--ongoing -Admit to med/surg -CT abdomen/pelvis shows partial SBO, potential 5 cm lesion of cecum/ascending colon, findings suggesting liver mets -NGT removed 02/22 -GI consulted, appreciate recs: Colonoscopy shows fungating, infiltrative, ulcerated and partially obstructing mass from hepatic flexure to cecum involving the ileocecal valve. Biopsies taken. Refer to surgeon and oncology. -General surgery consulted, appreciate recs: Resection today with possible liver biopsy if easily accessible. 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 Pt denies any family history of cancer. -Oncology consulted, appreciate recs: Saw pt with Dr. Padilla. Recommend obtaining liver biopsies if able during colon resection and will await pathology. Recommend obtaining chest CT to assess for further metastasis. Discussed with pt that treatment will involve mostly chemotherapy and that this surgery is not curative. CAD s/p stent 12/18/15--stable -Hold ASA and Plavix due to upcoming procedure -Continue Lipitor 80 mg PO hs -Cardiology consulted for cardiac pre op clearance: Echo ordered. Moderate risk for perioperative cardiac event. No further testing or intervention at this time. Resume aspirin when ok with surgery. -Echo shows LVEF of 55-60%. Severe basal inferior and inferolateral hypokinesis. Mild hypokinesis of mid inferolateral wall and base to mid lateral wall. Mild to moderate mitral regurgitation. Borderline pulmonary hypertension. Grade I diastolic dysfunction. HTN, HLD--stable COPD--stable -O2 by protocol H/o prostate cancer--in remission DVT prophylaxis -Hold Lovenox for surgery Code Status -Level I, FULL RESUSCITATION STATUS
--- NOTE | 2017-02-26 10:35 | Surgery Progress Note ---
Surgery Progress Note Date of Service Feb 26, 2017. 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 The patient had cardiology evaluation yesterday and no further testing was warranted. He is deemed a moderate risk for surgery with a 3-5% risk of myocardial infarction. He had an echocardiogram that showed some inferior wall hypokinesis with preserved left ventricular ejection fraction and some grade 1 diastolic dysfunction. Pathology returned poorly differentiated adenocarcinoma the colon. Oncology has been consult and Dr. Adam Brown evaluated the patient this morning. They're recommend liver biopsy, and the patient will need a chest CT and a likely PET scan for further staging. The patient is planned for a laparoscopic right hemicolectomy, possible open, possible liver biopsy. Objective Vital Signs: Date Time Temp Pulse Resp B/P (MAP) Pulse Ox O2 Delivery O2 Flow Rate FiO2 02/26/17 07:43 36.7 72 20 104/55 (71) 90 Room Air 02/26/17 00:00 Room Air 02/25/17 23:40 37.0 84 20 126/67 (86) 92 Room Air 02/25/17 20:00 Room Air 02/25/17 16:00 Room Air 02/25/17 15:48 36.5 86 20 97/56 (70) 91 Room Air 02/25/17 11:43 Room Air General Appearance: WD/WN, no apparent distress Head: normocephalic, atraumatic Neck: supple, no adenopathy, thyroid normal, no JVD, no carotid bruits, trachea midline Respiratory/Chest: chest non-tender, lungs clear, normal breath sounds, no respiratory distress, no accessory muscle use Cardiovascular: regular rate, rhythm, no edema Abdomen: normal bowel sounds, non tender, soft, no organomegaly, no pulsatile mass, + distended Extremities: normal range of motion, non-tender, normal inspection, no pedal edema, no calf tenderness, normal capillary refill, pelvis stable Laboratory Results: [facility] SURGICAL PATHOLOGY REPORT Name GAEL OROZCO Case: [id number] SURGICAL PATHOLOGY REPORT Page 2 of 3 [facility] [address] [place] [address] Danilo Guillen M.D. tassel snipper PATHOLOGY REPORT SURGICAL PATHOLOGY REPORT Page 1 of 1 CLINICAL HISTORY Dehydration, small bowel obstruction and abnormal CT scan. GROSS DESCRIPTION BIOPSY COLON MASS The specimen is received in a container labeled as bx colon mass with patient name Gael Orozco. The specimen consists of multiple irregular fragments of pink to alberto soft tissue. The fragments range from 0.2 to 0.8 cm in greatest dimension. The specimen is submitted entirely in a single cassette for levels. AH/pw FINAL DIAGNOSIS COLON MASS, BIOPSIES: 1. POORLY DIFFERENTIATED INVASIVE ADENOCARCINOMA. 2. IMMUNOHISTOCHEMICAL STAINS FOR MORALES SYNDROME PENDING. BK/pw ADDENDUM MISMATCH REPAIR PROTEINS TESTING BY IHC FOR MORALES SYNDROME MLH1 Protein: Intact. PMS2 Protein: Absent. MSH2 Protein: Intact. MSH6 Protein: Intact. INTERPRETATION: Immunohistochemistry studies show an absence of PMS2 protein within the carcinoma. 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 Internal controls worked appropriately. RECOMMENDATIONS: Absence of PMS2 carries an increased probability of Morales Syndrome. Genetic counseling and appropriate gene testing are recommended. Results Past 24 Hours Test 02/26/17 06:18 Range/Units White Blood Count 5.47 4.8-10.8 K/uL Red Blood Count 3.60 4.7-6.1 M/uL Hemoglobin 10.1 14.0-18.0 g/dL Hematocrit 30.8 42-52 % Mean Corpuscular Volume 85.6 80-100 fL Mean Corpuscular Hemoglobin 28.1 25-34 pg Mean Corpuscular Hemoglobin Concent 32.8 32-36 g/dl RDW Standard Deviation 43.3 36.4-46.3 fL RDW Coefficient of Variation 13.9 11.5-14.5 % Platelet Count 203 130-400 K/uL Mean Platelet Volume 9.5 7.4-10.4 fL Sodium Level 137 136-145 mmol/L Potassium Level 3.8 3.5-5.1 mmol/L Chloride Level 103 98-107 mmol/L Carbon Dioxide Level 27 21-32 mmol/L Anion Gap 7.0 3-11 mmol/L Blood Urea Nitrogen 4 7-18 mg/dl Creatinine 0.60 0.60-1.40 mg/dl Est Creatinine Clear Calc Drug Dose 81.2 ml/min Estimated GFR () 106.3 Estimated GFR (Non- 91.7 BUN/Creatinine Ratio 7.2 10-20 Random Glucose 90 70-99 mg/dl Calcium Level 8.1 8.5-10.1 mg/dl Assessment & Plan Assessment: 86-year-old male with near obstructing poorly differentiated adenocarcinoma of the right colon and likely liver metastasis. Plan: Plan for laparoscopic right hemicolectomy, possible open right hemicolectomy, possible liver biopsy today in the operating room Preoperative antibiotics Plavix, aspirin has been held for almost 2-3 weeks Lovenox was held this morning The risks of the procedure were discussed to include but are not limited to bleeding, infection, need for future more extensive surgery, ostomy, need for bypass without resection, residual disease, anastomotic leak, and the risks of anesthesia to include heart attack, stroke, blood clots to the legs or lungs, Pneumonia, and The details of the surgery, recovery, and plan of care were discussed with the patient, all questions were answered, the patient expressed understanding and agrees the plan of care as stated I offered to contact the patient's after surgery, however he would prefer to contact her himself.
[2017-02-26] MEDS ORDERED: CEFOXITIN IV 2,000 MG in DEXTROSE 5% 50ML 50 ML IV ONE (11:00)
[2017-02-26] MEDS ORDERED: LIDOCAINE HCL 2% 2 ML VIAL (20MG/ML) ONE (11:01)
[2017-02-26] MEDS ORDERED: FENTANYL CITRATE INJ 50 MCG/1 ML 2 ML VIAL ONE ×2 (11:01→12:34)
[2017-02-26] MEDS ORDERED: PROPOFOL IV EMULSION 10 MG/ML 20 ML VIAL IV ONE (11:01)
[2017-02-26] MEDS ORDERED: CISATRACURIUM BESYLATE IV SOLN 2 MG/ML 10 ML VIAL ONE (11:01)
[2017-02-26] MEDS ORDERED: BUPIVACAINE 0.5 % 5 MG/1 ML MPF 30ML VIAL ONE (11:35)
[2017-02-26] MEDS ORDERED: BUPIVACAINE LIPOSOME 1/3% 266 MG/20 ML VIAL INFIL ONE (11:35)
[2017-02-26] MEDS ORDERED: ESMOLOL HCL 10 MG/ML 10 ML VIAL ONE (12:36)
[2017-02-26] MEDS ORDERED: EpHEDrine SULFATE 50MG/5ML SYR ONE (12:36)
[2017-02-26] MEDS ORDERED: HYDROmorphone INJ 2 MG/ML SYR/VIAL ONE (12:56)
--- NOTE | 2017-02-26 15:16 | [facility] Post Operative Brief Note ---
Immediate Operative Summary Operative Date Feb 26, 2017. Pre-Operative Diagnosis Right colon cancer, liver metastasis Post-Operative Diagnosis same Procedure(s) Performed Laparoscopic right Hemicolectomy with primary anastomosis; laparoscopic liver Biopsy Surgeon Dr. Franc Velazco Dining Car Steward Surgeon(s) Jose Ford PA-C Estimated Blood Loss 15mL Findings Multiple liver lesions. No evidence of gross peritoneal metastasis. Large firm mass in the right colon consistent with imaging and colonoscopy results. Medial to lateral right hemicolectomy performed, ileocolic vessels taken with stapler. Specimen exteriorized, resection performed with primary anastomosis. Liver biopsy performed using Harmonic. Specimens Permanent specimens A: Right hemicolectomy (sent fresh for permanent specimen) B. liver biopsy (permanent) Drains None Anesthesia GETA Complication(s) None Disposition Recovery Room / PACU
[2017-02-26] MEDS ORDERED: MoRPHine SULFATE 4 MG/ML 1 ML CARP\\VIAL IV PRN (15:30)
[2017-02-26] MEDS ORDERED: EpHEDrine SULFATE INJ 50 MG/ML AMP IV PRN (15:30)
[2017-02-26] MEDS ORDERED: LABETALOL HCL IV 5 MG/ML 20ML IV PRN (15:30)
[2017-02-26] MEDS ORDERED: NALOXONE HCL 0.4 MG/1 ML VIAL/CARP IV PRN (15:30)
[2017-02-26] MEDS ORDERED: HYDROmorphone INJ 1 MG/ML SYR IV PRN (15:30)
[2017-02-26] MEDS ORDERED: ATROPINE SULFATE 0.1 MG/ML 5ML SYR IV PRN (15:30)
[2017-02-26] MEDS ORDERED: ONDANSETRON INJ 2 MG/ML 2 ML VIAL IV PRN (15:30)
[2017-02-26] MEDS ORDERED: ACETAMINOPHEN IV 100 ML IV PRN (15:30)
[2017-02-26 15:45] LABS: HEMATOCRIT 31.7 % (42-52)
--- NOTE | 2017-02-26 15:50 | [facility] Operative Report ---
Operative Report Operative Date Feb 26, 2017. Pre-Operative Diagnosis Right colon cancer, liver metastasis Post-Operative Diagnosis same Procedure(s) Performed Laparoscopic right hemicolectomy with primary anastomosis; laparoscopic liver biopsy Surgeon Dr. Franc Velazco Photographic Spotter Surgeon(s) Jose Ford PA-C Estimated Blood Loss 15mL Findings Multiple liver lesions. No evidence of gross peritoneal metastasis. Large firm mass in the right colon consistent with imaging and colonoscopy results. Medial to lateral right hemicolectomy performed, ileocolic vessels taken with stapler. Specimen exteriorized, resection performed with primary anastomosis. Liver biopsy performed using Harmonic. Specimens Permanent specimens A: Right hemicolectomy (sent fresh for permanent specimen) B. liver biopsy (permanent) Drains None Anesthesia GETA Complication(s) None Disposition Recovery Room / PACU Indications 86-year-old male admitted for near obstructing right colon mass with likely liver metastasis on imaging. 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 He has a history of coronary artery disease with stent placement one year ago and had evaluation by the ship captain who deemed he was a moderate risk for surgery but no further testing was necessary. Plan for laparoscopic right hemicolectomy, possible open hemicolectomy, with possible liver biopsy. The risks of the procedure were discussed, all questions were answered, and the patient agreed to proceed with surgery as planned. Description of Procedure The patient was properly identified, consented, and taken to the operating room where he was placed in the supine position with both arms tucked. General endotracheal anesthesia was induced. SCDs and a safety belt were placed. Preoperative antibiotics were administered. A Roach catheter was placed. The patient's abdomen was prepped and draped in the standard sterile fashion. Surgical timeout was performed and all parties were in agreement that this was the correct patient and procedure to be performed and we continued as planned. A vertical midline supraumbilical incision was made with electrocautery and deepened down to the fascia with blunt dissection. The base of the umbilicus was grasped with a Alayna. The Alayna was elevated towards the ceiling and the fascia was incised with a knife. Stay sutures were placed on either side of the midline. Entry into the peritoneum was confirmed. The Gordon trocar was then placed and the abdomen was insufflated with carbon dioxide which the patient tolerated without incident. The laparoscope was inserted and the abdomen inspected. No damage from initial trocar placement was noted. The 4 quadrants the abdomen were examined and there was obvious superficial lesions of the liver that appeared to be consistent with metastatic disease. There was no evidence of peritoneal studding or metastasis. An 11 mm port was placed in the left lower quadrant and a 5 mm port was placed in the suprapubic position. The patient was placed in Trendelenburg position and the rotated towards the left. The small bowel was swept out of the way. There was a firm mass along the right colon, and later the tattoo was identified near the hepatic flexure. The cecum was then grasped and elevated towards the abdominal wall exposing the pedicle of the ileocolic artery and vein. The peritoneum just underneath this was scored with electrocautery. Blunt dissection was then used to isolate the vessels along with the use of the Harmonic. The vessels were circumferentially dissected. A alberto loaded 45 mm endoscopic KATIE stapler was then used to divide the ileocolic vein and artery close to their base. Hemostasis appeared excellent. We then continued the dissection from a medial to lateral approach dissecting the retroperitoneal structures posteriorly away from the small bowel and colonic mesentery. The pancreas and duodenum were kept down. We continued this dissection until we entered the lesser sac and continued laterally until the colon was nearly free of all adhesions except for the white line of Toldt. We then began dissection of the greater omentum off of the transverse colon mesentery. This was performed with blunt dissection and harmonic device. The lesser sac was then entered. Once the medial to lateral dissection was completed, we then performed a lateral dissection using electrocautery and the Harmonic device to take down the white line of Toldt along the right colon. The hepatic flexure was then taken down. The terminal ileum was mobilized as well as the appendix. Once this was completed, it appeared that the specimen, transverse colon, and terminal ileum would reach easily to the midline abdominal wall, and we decided to exteriorize the colon. Laparoscopy was ceased and a midline incision was made around the umbilicus for a length of approximately 7 cm. The wound protector was placed within the wound after the fascia was opened and the colon was exteriorized. The colon reached easily as did the small bowel. A window was created in the mesentery and the colon was divided with a purple loaded 60 mm stapler approximately 5 cm distal to the mass, along the transverse colon just distal to the hepatic flexure. The terminal ileum was divided several centimeters proximal to the ileocolic valve. We then completed the resection of the mesentery using the Harmonic. A ttes-sm-dolo functional end-to-end anastomosis was then created. The distal ileum and transverse colon appeared to have good blood supply. The small bowel and colon were lined up along the antimesenteric borders with care not twist the bowel. The wound was protected with blue towels. Curved Ortega scissors were then used to excise the corners of the staple line, and the anastomosis was created using sequential fires of a purple loaded 45 mm endoscopic stapler. The common enterotomy was then closed by excising the entire staple line with subsequent fires of the 60 mm purple loaded endoscopic KATIE stapler. There was good blood flow at the edge of the staple line. The vertical anastomotic staple line was then reinforced with 3-0 silk GI Lembert sutures. The anastomosis was allowed to drop back into the abdomen. We placed the gel port and reentered laparoscopically. We turned our attention to the liver metastasis. We attempted a Melo-Cut biopsy of the liver mass but this was marginally successful. The mass is partially exophytic, therefore a 1 x 1 cm wedge was excised. Hemostasis was achieved with electrocautery and looked good. The liver biopsy was sent to pathology as specimen. The abdomen was inspected. The anastomosis looked patent and viable with no twisting, and there were no signs of hemorrhage within the abdomen. The abdomen was irrigated with saline. Ports were then removed under direct visualization with good hemostasis. The periumbilical wound protector was removed and the fascia was closed with a #0 PDS x1. The fascia was then injected with exparel. The wound was irrigated and the incision was then closed with alesia. The remaining port sites were closed with alesia. Sterile dressings were placed. The patient was extubated in the operating room and taken to the PACU where he recovered without apparent incident. All sponge, instrument, and needle counts were correct. The patient tolerated the procedure well. The colon specimen and liver biopsy were sent to Pathology. Jose Ford PA-C was present and scrubbed for the entirety of the case. He was essential in prepping, draping, accessing the abdomen, exposure, retraction, resecting the bowel, completing the anastomosis, closure of the abdomen and closure of the skin. I attest to the content of the Intraoperative Record and any orders documented therein. Any exceptions are noted below.
[2017-02-26] MEDS ORDERED: KETOROLAC TROMETHAMINE 15 MG/ML VIAL IV PRN (16:00)
--- NOTE | 2017-02-26 16:34 | Anesthesiology Progress Note ---
Anesthesia Post Op Note Date & Time Feb 26, 2017 at 16:34 Vital Signs Pain Intensity: 2 Vital Signs Past 12 Hours Date Time Temp Pulse Resp B/P (MAP) Pulse Ox O2 Delivery O2 Flow Rate FiO2 02/26/17 16:15 36.6 75 16 116/62 94 Nasal Cannula 2 02/26/17 16:05 73 22 112/60 93 Nasal Cannula 2 02/26/17 15:55 77 17 117/61 93 Nasal Cannula 2 02/26/17 15:45 69 17 99/56 97 Oxymask 10 02/26/17 15:35 71 14 120/59 97 Oxymask 10 02/26/17 15:25 73 19 113/91 96 Oxymask 10 02/26/17 15:19 36.4 77 20 104/56 93 Oxymask 10 02/26/17 10:48 Room Air 02/26/17 10:47 37.1 80 20 127/70 (89) 90 Room Air 02/26/17 07:43 36.7 72 20 104/55 (71) 90 Room Air Notes Mental Status: alert / awake / arousable, participated in evaluation Pt Amnestic to Procedure: Yes Nausea / Vomiting: adequately controlled Pain: adequately controlled Airway Patency, RR, SpO2: stable & adequate BP & HR: stable & adequate Hydration State: stable & adequate Anesthetic Complications: no major complications apparent
--- NOTE | 2017-02-26 16:42 | Oncology Consultation ---
Oncology/Heme Consultation Date of Consultation: Feb 26, 2017. Attending Physician: Darnell Soto MD, PhD Reason for Consultation: Nausea and vomiting Dehydration Likely metastatic colorectal cancer History of Present Illness Mr. Jean is an 86 year old man with a history of CAD with a PCI last year. About 2 weeks ago, she ate some pizza and vomited profusely shortly after. Since that time, he's been unable to eat solid foods due to intractable nausea. He was eventually admitted 02/20 after his abdomen became progressively more rigid and tender. A CT revealed dilated loops of small bowel consistent with an obstruction and what appeared to be a mass in the cecum. Also noted were numerous hypodensities in the liver consistent with possible metastases. He was kept NPO and is now moving his bowels. He underwent colonoscopy 02/24 that revealed a likely malignant partially obstructing tumor in the ascending colon extending between the cecum and the hepatic flexure and involving the ileocecal valve. Biopsy was taken, revealing a poorly differentiated adenocarcinoma. Morales screening revealed loss of PMS2. He lost around 10 lb during the 2 weeks or so that he couldn't eat, but doesn't believe he lost much beforehand. He denies any blood in his stool, pain, change in his stool habits, or excessive fatigue. Past Medical/Surgical History Medical Problems: (1) Dehydration Status: Acute (2) Elevated liver enzymes Status: Acute (3) Small bowel obstruction Status: Acute Social History Smoking Status: Former Smoker Alcohol Use: occasionally Drug Use: none Marital Status: Housing Status: lives with significant other Occupation Status: retired Allergies Coded Allergies: No Known Allergies (Unverified , 02/20/17) Home Medications Scheduled Aspirin (Aspirin Chewable), 81 MG PO DAILY Atorvastatin (Lipitor), 80 MG PO DAILY Clopidogrel Bisulfate (Plavix), 75 MG PO DAILY Multiple Vitamins W/ Minerals (Centrum), 1 TAB PO DAILY Scheduled PRN Nitroglycerin (Nitrostat), 0.4 MG UT PRN PRN for CHEST PAIN Current Inpatient Medications Current Inpatient Medications Medications (Trade) Dose Ordered Sig/Maciej Route Start Time Stop Time Status Last Admin Dose Admin Ondansetron HCl (Zofran Inj) 4 mg Q6H PRN IV 02/20/17 11:30 03/22/17 11:29 02/25/17 07:55 4 MG Atorvastatin Calcium (Lipitor Tab) 80 mg DAILY PO 02/25/17 09:00 03/27/17 08:59 02/25/17 07:55 80 MG Lactated Ringer's 1,000 ml @ 100 mls/hr Q10H IV 02/26/17 06:00 03/28/17 05:59 02/26/17 06:13 100 MLS/HR Cefoxitin Sodium 2000 mg/Dextrose 60 ml @ 100 mls/hr Q6H IV 02/26/17 18:00 02/27/17 06:35 Morphine Sulfate (MoRPHine SULFATE INJ) 2 mg Q1H PRN IV 02/26/17 15:30 03/12/17 15:29 Morphine Sulfate (MoRPHine SULFATE INJ) 4 mg Q1H PRN IV 02/26/17 15:30 03/12/17 15:29 Acetaminophen 100 ml @ 400 mls/hr Q8H PRN IV 02/26/17 15:30 03/28/17 15:29 Aspirin (Ecotrin Tab) 81 mg QAM PO 02/27/17 09:00 03/29/17 08:59 Hydromorphone HCl (Dilaudid Inj) 0.25 mg Q5M PRN IV 02/26/17 15:30 02/26/17 20:00 Naloxone HCl (Narcan Inj) 0.2 mg Q2M PRN IV 02/26/17 15:30 02/26/17 20:00 Ondansetron HCl (Zofran Inj) 4 mg ONE PRN IV 02/26/17 15:30 02/26/17 20:00 Labetalol HCl (Normodyne IV) 5 mg Q5M PRN IV 02/26/17 15:30 02/26/17 20:00 Ephedrine Sulfate (EpHEDrine SULFATE INJ) 5 mg Q5M PRN IV 02/26/17 15:30 02/26/17 20:00 Atropine Sulfate (Atropine Sulfate 0.1MG/Ml Inj) 0.5 mg Q1M PRN IV 02/26/17 15:30 02/26/17 20:00 Ketorolac Tromethamine (Toradol Inj) 15 mg Q6H PRN IV 02/26/17 16:00 03/03/17 15:59 Review of Systems Constitutional: + weight loss, + fatigue, No fever, No chills Respiratory: No cough, No shortness of breath Cardiovascular: No chest pain Abdomen: + pain, + nausea, + vomiting Musculoskeletal: No joint pain, No muscle pain Hematologic / Lymphatic: No abnormal bleeding/bruising Physical Exam Date Time Temp Pulse Resp B/P (MAP) Pulse Ox O2 Delivery O2 Flow Rate FiO2 02/26/17 15:55 77 17 117/61 93 Nasal Cannula 2 02/26/17 15:45 69 17 99/56 97 Oxymask 10 02/26/17 15:35 71 14 120/59 97 Oxymask 10 02/26/17 15:25 73 19 113/91 96 Oxymask 10 02/26/17 15:19 36.4 77 20 104/56 93 Oxymask 10 02/26/17 10:48 Room Air 02/26/17 10:47 37.1 80 20 127/70 (89) 90 Room Air 02/26/17 07:43 36.7 72 20 104/55 (71) 90 Room Air 02/26/17 00:00 Room Air 02/25/17 23:40 37.0 84 20 126/67 (86) 92 Room Air 02/25/17 20:00 Room Air General Appearance: no apparent distress, + thin Eyes: sclerae normal (anicteric) ENT: + pertinent finding (partially edentulous) Respiratory/Chest: lungs clear Cardiovascular: regular rate, rhythm Abdomen/GI: non tender, soft Extremities/Musculoskelatal: no pedal edema Neurologic/Psych: alert, oriented x 3 Skin: no rash Laboratory Results Last 24 Hours Test 02/26/17 06:18 02/26/17 15:36 White Blood Count 5.47 K/uL Red Blood Count 3.60 M/uL Hemoglobin 10.1 g/dL 10.3 g/dL Hematocrit 30.8 % 31.7 % Mean Corpuscular Volume 85.6 fL Mean Corpuscular Hemoglobin 28.1 pg Mean Corpuscular Hemoglobin Concent 32.8 g/dl RDW Standard Deviation 43.3 fL RDW Coefficient of Variation 13.9 % Platelet Count 203 K/uL Mean Platelet Volume 9.5 fL Sodium Level 137 mmol/L Potassium Level 3.8 mmol/L Chloride Level 103 mmol/L Carbon Dioxide Level 27 mmol/L Anion Gap 7.0 mmol/L Blood Urea Nitrogen 4 mg/dl Creatinine 0.60 mg/dl Est Creatinine Clear Calc Drug Dose 81.2 ml/min Estimated GFR () 106.3 Estimated GFR (Non- 91.7 BUN/Creatinine Ratio 7.2 Random Glucose 90 mg/dl Calcium Level 8.1 mg/dl Assessment & Plan Mr. Jean has a cancer in his ascending colon with what appears to be hepatic metastases. Given his presentation with a bowel obstruction, I agree with upfront surgical management even in the face of likely stage IV disease. During surgery, sampling of one of the hepatic metastases would be ideal, to confirm his stage. We will also request expanded NOEL testing on his surgical sample. I briefly reviewed the management of metastatic colorectal cancer with Mr. Jean. Given his overall PS, I'm worried about his tolerance of treatment, but given his MSI-H status, he might be a good candidate for up-front immunotherapy. We can discuss this in more detail at a later time. In the meantime, please get a CT of his chest to complete his staging.
[2017-02-26] MEDS: MoRPHine SULFATE 2 MG/ML CARP IV PRN ×2 (17:43→21:53)
[2017-02-26] MEDS: CEFOXITIN IV 2,000 MG in DEXTROSE 5% 50ML 50 ML IV SCH ×2 (17:45→23:54)
[2017-02-27] VITALS (7 sets, daily range): BP systolic 102–127; BP diastolic 61–65; PULSE 78–98; TEMP 36.5–37.1; O2SAT 91–94
[2017-02-27] MEDS: ONDANSETRON INJ 2 MG/ML 2 ML VIAL IV PRN ×2 (02:00→17:52)
[2017-02-27] MEDS: MoRPHine SULFATE 2 MG/ML CARP IV PRN (03:04)
[2017-02-27] MEDS: CEFOXITIN IV 2,000 MG in DEXTROSE 5% 50ML 50 ML IV SCH (06:41)
--- NOTE | 2017-02-27 07:32 | Surgery Progress Note ---
Surgery Progress Note Date of Service Feb 27, 2017. Subjective Post OP Day: 1 some nausea last night believes from rosas not draining, improved this morning, pain control adequate, no chest pain, no flatus Objective Vital Signs: Date Time Temp Pulse Resp B/P (MAP) Pulse Ox O2 Delivery O2 Flow Rate FiO2 02/27/17 04:00 91 Nasal Cannula 2.0 02/27/17 03:30 37.1 81 16 113/65 (81) 91 Nasal Cannula 2.0 02/26/17 23:59 93 Nasal Cannula 2.0 02/26/17 23:59 93 Nasal Cannula 2.0 02/26/17 23:25 37.0 86 18 111/67 (82) 93 Nasal Cannula 2.0 02/26/17 20:00 36.7 92 20 109/69 (82) 93 Room Air 02/26/17 20:00 94 Nasal Cannula 2.0 02/26/17 19:00 36.3 90 22 113/71 (85) 98 Nasal Cannula 6.0 02/26/17 17:15 96 Nasal Cannula 6.0 02/26/17 16:45 82 16 113/57 96 Nasal Cannula 6 02/26/17 16:30 69 10 115/58 95 Nasal Cannula 6 02/26/17 16:15 36.6 75 16 116/62 94 Nasal Cannula 2 02/26/17 16:05 73 22 112/60 93 Nasal Cannula 2 02/26/17 15:55 77 17 117/61 93 Nasal Cannula 2 02/26/17 15:45 69 17 99/56 97 Oxymask 10 02/26/17 15:35 71 14 120/59 97 Oxymask 10 02/26/17 15:25 73 19 113/91 96 Oxymask 10 02/26/17 15:19 36.4 77 20 104/56 93 Oxymask 10 02/26/17 10:48 Room Air 02/26/17 10:47 37.1 80 20 127/70 (89) 90 Room Air 02/26/17 07:43 36.7 72 20 104/55 (71) 90 Room Air Physical Exam: urine output (300) Respiratory/Chest: lungs clear Cardiovascular: regular rate, rhythm Abdomen: non distended, soft Incision(s): intact (dressing) Laboratory Results: Results Past 24 Hours Test 02/26/17 15:36 02/27/17 04:44 Range/Units Hemoglobin 10.3 14.0-18.0 g/dL Hematocrit 31.7 42-52 % Troponin I 0.022 0-0.045 ng/ml Assessment & Plan s/p lap right hemicolectomy, liver biopsy stable post op begin clear liquids OOB Lovenox, ASA to resume this AM labs pending d/c alison later today or tomorrow
[2017-02-27 08:17] LABS: HEMATOCRIT 30.3 % (42-52); MEAN CELL VOLUME 85.1 fL (80-100); MEAN CORPUSCULAR HEMOGLOBIN 28.1 pg (25-34); MEAN PLATELET VOLUME 9.4 fL (7.4-10.4); PLATELET COUNT 213 K/uL (130-400); RED BLOOD COUNT 3.56 M/uL (4.7-6.1); WHITE BLOOD COUNT 11.29 K/uL (4.8-10.8)
[2017-02-27] MEDS ORDERED: OXYCODONE HCL IR 5 MG TAB (IMMEDIATE RELEASE) PO PRN ×2 (08:30)
[2017-02-27] MEDS ORDERED: TAMSULOSIN HCL 0.4 MG CAP PO ONE (08:30)
[2017-02-27] MEDS ORDERED: ACETAMINOPHEN 325 MG TAB PO PRN (08:30)
[2017-02-27] MEDS ORDERED: OPTIRAY 320 IV PRN (08:45)
[2017-02-27 08:50] LABS: BUN/CREATININE RATIO 7.4 (10-20); CREATININE 1.48 mg/dl (0.60-1.40); POTASSIUM 4.2 mmol/L (3.5-5.1)
--- NOTE | 2017-02-27 08:53 | Hospitalist Progress Note ---
Hospitalist Progress Note Date of Service Feb 27, 2017. Subjective Pt evaluation today including: conversation w/ patient, physical exam, chart review, lab review, review of studies Pain: mild abdominal pain, worse with movement PO Intake: tolerating clears Voiding: no voiding problems The patient was seen and examined this morning. Patient reports feeling well and jokes that he will say anything to get him home sooner. He denies any acute complaints. He has been getting up and walking without much difficulty or much pain, although he appears to have pain when sitting up in bed. He is ambulating well about the room without assistance. He lives at home by himself but has neighbors and friends that visit him quite frequently. Additional Comments: Constitutional: No fever, sweats or chills Eyes: No diplopia, no worsening or blurred vision ENT: normal hearing, no trouble swallowing Respiratory: No cough, sputum, dyspnea at rest or on exertion Cardiovascular: No chest pain, tightness or palpitations Abdomen: No pain, nausea, vomiting, patient is tolerating clears, has not yet had a bowel movement surgery although is passing gas Musculoskeletal: No joint pain, calf pain, swelling Neurologic: No weakness, numbness/tingling, or balance problems Psychiatric: No anxiety or depression Skin: No rash or itch Objective Vital Signs Date Time Temp Pulse Resp B/P (MAP) Pulse Ox O2 Delivery O2 Flow Rate FiO2 02/27/17 08:00 Nasal Cannula 2.0 02/27/17 08:00 Nasal Cannula 2.0 02/27/17 07:17 37.1 78 20 119/63 (81) 92 Nasal Cannula 2.0 02/27/17 04:00 91 Nasal Cannula 2.0 02/27/17 03:30 37.1 81 16 113/65 (81) 91 Nasal Cannula 2.0 02/26/17 23:59 93 Nasal Cannula 2.0 02/26/17 23:59 93 Nasal Cannula 2.0 02/26/17 23:25 37.0 86 18 111/67 (82) 93 Nasal Cannula 2.0 02/26/17 20:00 36.7 92 20 109/69 (82) 93 Room Air 02/26/17 20:00 94 Nasal Cannula 2.0 02/26/17 19:00 36.3 90 22 113/71 (85) 98 Nasal Cannula 6.0 02/26/17 17:15 96 Nasal Cannula 6.0 02/26/17 16:45 82 16 113/57 96 Nasal Cannula 6 02/26/17 16:30 69 10 115/58 95 Nasal Cannula 6 02/26/17 16:15 36.6 75 16 116/62 94 Nasal Cannula 2 02/26/17 16:05 73 22 112/60 93 Nasal Cannula 2 02/26/17 15:55 77 17 117/61 93 Nasal Cannula 2 02/26/17 15:45 69 17 99/56 97 Oxymask 10 02/26/17 15:35 71 14 120/59 97 Oxymask 10 02/26/17 15:25 73 19 113/91 96 Oxymask 10 02/26/17 15:19 36.4 77 20 104/56 93 Oxymask 10 02/26/17 10:48 Room Air 02/26/17 10:47 37.1 80 20 127/70 (89) 90 Room Air Physical Exam Notes: General: awake, alert, no apparent distress, slightly hard of hearing Head: Normocephalic, atraumatic ENT: PERRL, EOMI, no pharyngeal exudate, MMM Chest: Clear to auscultation, on room air, no adventitious breath sounds Cardiac: Regular rate and rhythm, + systolic murmur, no JVD, normal peripheral pulses, good capillary refill Abdominal: Abdominal dressing slightly saturated, intact, NABS x 4 quadrants, soft, nontender to light palpation, no rebound, guarding or tenderness Extremities: Normal inspection, no peripheral edema or erythema, calfs nontender to palpation Psych: Normal mood and affect, jokingly sarcastic Neuro: AAO x 3, strength intact bilaterally and related 5/5, gait is slightly unsteady upon standing, no motor deficits, speech is clear, no peripheral sensory deficits Laboratory Results Last 24 Hours Test 02/26/17 15:36 02/27/17 07:34 Hemoglobin 10.3 g/dL 10.0 g/dL Hematocrit 31.7 % 30.3 % Troponin I 0.022 ng/ml White Blood Count 11.29 K/uL Red Blood Count 3.56 M/uL Mean Corpuscular Volume 85.1 fL Mean Corpuscular Hemoglobin 28.1 pg Mean Corpuscular Hemoglobin Concent 33.0 g/dl RDW Standard Deviation 43.3 fL RDW Coefficient of Variation 13.9 % Platelet Count 213 K/uL Mean Platelet Volume 9.4 fL Assessment and Plan 86 y/o male with a history of CAD s/p stent Dec 2015, HTN, HLD, COPD and prostate cancer who presents with small bowel obstruction. 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 Velazco - await path reports Oncology: Dr. Dyer -- prognosis poor, not likely curative, considering immunotherapy/chemotherapy - Clear liquid diet - patient dislikes boost and refuses to drink it, pt encouraged increased protein intake for improvement with healing - Switch LR to NSS today, @ 100 cc/hr - WBC slightly elevated at 12K, monitor with cbc, likely reactive secondary to surgical procedure. FRANCIA - Cr increased from 0.6 to 1.4 since yesterday - Continue IVFs through today - Follow am PRP - Avoid nephrotoxins Mild hyponatremia - Switched fluids to NSS - follow am prp CAD s/p stent 12/18/15--stable - Resume ASA 81 mg - Will resume Plavix after clearance from general surg - Continue Lipitor 80 mg PO hs - Cardiology consulted for cardiac pre op clearance: Echo ordered. Moderate risk for perioperative cardiac event. - Echo shows LVEF of 55-60%. Severe basal inferior and inferolateral hypokinesis. Mild hypokinesis of mid inferolateral wall and base to mid lateral wall. Mild to moderate mitral regurgitation. Borderline pulmonary hypertension. Grade I diastolic dysfunction. HTN, HLD--stable COPD--stable -O2 by protocol H/o prostate cancer--in remission DVT prophylaxis - Resume lovenox Code Status: FULL Disposition: From home, lives alone, CM to assist with d/c planning.
[2017-02-27] MEDS ORDERED: ENOXAPARIN 40 MG/0.4 ML SYR SQ SCH (09:00)
[2017-02-27] MEDS ORDERED: ENOXAPARIN 40 MG/0.4 ML SYR SC SCH (09:00)
[2017-02-27] MEDS: ASPIRIN 81 MG ECTAB PO SCH (09:05)
[2017-02-27] MEDS: KETOROLAC TROMETHAMINE 15 MG/ML VIAL IV SCH ×3 (09:05→21:01)
[2017-02-27] MEDS: ATORVASTATIN 40 MG TAB PO SCH (09:05)
[2017-02-27] MEDS: LACTATED RINGER'S 1000ML 1,000 ML IV SCH (09:06)
--- NOTE | 2017-02-27 09:25 | Clinical Documentation Query ---
CLINICAL DOCUMENTATION QUERY Dr. VARNER, In your clinical opinion is this patient being managed for: ( x ) Acute kidney failure ( ) Not Agree ( ) Other explanation of clinical findings (Please Explain) ( ) Unable to determine (Please Define) ( ) Need to Discuss The medical record reflects the following clinical findings, treatment, and risk factors. Clinical Indicators: 86 yo male presenting with colon cancer with suspected liver metastasis. Cr baseline of 0.06-0.94 over the past year. Postoperatively Cr climbed to 1.48. Treatment:IV fluids, monitor PRP's Risk Factors: age, surgery, hx HTN and CAD. Please clarify and document your clinical opinion in the progress notes and discharge summary. Terms such as "probable", "suspected", "likely", "questionable", "possible", or "still to be ruled out" are acceptable. IF IN AGREEMENT, YOU MUST DOCUMENT ABOVE DIAGNOSTIC STATEMENT IN DAILY PROGRESS NOTES AND DISCHARGE SUMMARY. This document is not part of the patient's record. Thank You, Faby Acosta, KARINE [phone]
--- NOTE | 2017-02-27 11:07 | DIAGNOSTIC IMAGING REPORT ---
CHEST CT WITH CONTRAST CT DOSE: 444.73 mGy.cm HISTORY: Cancer staging, hx colon cx with liver mets TECHNIQUE: Multiaxial CT images of the chest were performed following the intravenous administration of contrast. A dose lowering technique was utilized adhering to the principles of ALARA. COMPARISON: CT chest 12/26/2015. FINDINGS: Thyroid is homogeneous. Enlarged right hilar lymph node measures 2.9 x 1.2 cm. Enlarged subcarinal lymph node measures 2.3 x 1.6 cm. Large left hilar lymph node measures 2.5 x 1.1 cm. Additionally, prominent 9 mm retrocrural lymph node on the right as seen on image 254 series 4 with additional mildly enlarged periaortic lymph nodes seen within the imaged upper abdomen. Coronary arterial disease. Moderate atherosclerosis of the aorta with imaged great vessels patent. The opacified pulmonary arterial tree is unremarkable. Advanced upper lobe predominant emphysema with areas of chronic pleural parenchymal scarring. Trace right pleural effusion. Subsegmental bibasilar and solid lesion suggest atelectasis. 5 mm solid nodule of the right upper lobe, image 70 series 4 is new from prior study. Irregular consolidative opacity of the right upper lobe is seen on image 106 series 4. 2 mm nodule of the right middle lobe, image 188 series 4 is indeterminate. Patchy consolidative opacities are noted within the inferior segment lingula. Central airways are patent. Innumerable hepatic metastasis. Pericaval and perihepatic adenopathy of the imaged upper abdomen. Nonspecific pericholecystic inflammatory stranding. Large amount of pneumoperitoneum of the upper abdomen with deep tissue air seen along the abdominal wall. No definite suspicious lytic or blastic bony lesions to suggest osseous metastasis. Multilevel endplate spurring, intervertebral disc space narrowing and facet arthropathy throughout the spine. IMPRESSION: 1. Pathologically enlarged mediastinal and hilar lymph nodes as above suggests lymphatic metastasis. Mildly prominent right retrocrural and enlarged upper abdominal periaortic lymph nodes are also suspicious for metastasis. 2. Innumerable hepatic metastasis. 3. Large volume upper abdominal pneumoperitoneum with deep tissue air along the abdominal wall suggests recent abdominal surgery. If the patient has not had interval surgery correlate with perforated viscus. 4. Trace right pleural effusion with indeterminate 5 mm nodule of the right upper lobe. 5. Advanced emphysema with patchy consolidative opacities of the lingula and right upper lobe suspicious for pneumonitis. Please refer to below summary of Fleischner criteria recommendations for follow-up of incidental CT nodules (Salvador Barrera, Guidelines for management of small pulmonary nodules detected on CT scans: A statement from the Fleischner Society, Radiology 237: [id number].) SOLID NODULES Solitary nodule size: <6 mm * Low risk patients: no follow-up needed * high risk patients: optional CT at 12 months Solitary nodule size: 6-8 mm * Low risk patients: follow-up at 6-12 months, then consider further follow-up at 18-24 months * high risk patients: initial follow-up CT at 6-12 months and then at 18-24 months if no change Solitary nodule size: >8 mm * either low or high risk patients - consider follow-up CT at 3 months, and/or CT-PET, and/or biopsy Multiple nodules size: <6 mm * Low risk patients: no routine follow-up * high risk patients: optional CT at 12 months Multiple nodules size: 6-8 mm * Low risk patients: follow-up at 3-6 months, then consider further follow-up at 18-24 months * high risk patients: follow-up at 3-6 months, then at 18-24 months if no change Multiple nodules size: >8 mm * Low risk patients: follow-up at 3-6 months, then consider further follow-up at 18-24 months * high risk patients: follow-up at 3-6 months, then at 18-24 months if no change Note: newly detected indeterminate nodule in persons 35 years of age or older. * Low risk patients: minimal or absent history of smoking and/or other known risk factors * high risk patients: history of smoking or of other known risk factors (e.g. first degree relative with lung cancer, or exposure to asbestos, radon, uranium) * if a nodule up to 8 mm is partly solid or is ground glass further follow-up is required after 24 months to exclude possible slow growing adenocarcinoma (GEOVANNI) SUBSOLID NODULES Solitary pure ground-glass nodule * nodule size <6 mm - no CT follow-up required * nodule size >=6 mm - follow-up CT at 6-12 months, then every 2 years until 5 years Solitary part-solid nodule * nodule size <6 mm - no CT follow-up required * nodule size >=6 mm - follow-up CT at 3-6 months. If unchanged, and solid component remains <6 mm, then annual follow-up for 5 years Multiple subsolid nodules * nodule size <6 mm - follow-up CT at 3-6 months, consider further follow-up at 2 and 4 years if stable * nodule size >=6 mm - follow-up CT at 3-6 months, subsequent management based on the most suspicious nodule(s) The above report was generated using voice recognition software. It may contain grammatical, syntax or spelling errors. Electronically signed by: Ned Cardenas M.D. 02/27/2017 11:05 AM Dictated Date/Time: 02/27/2017 10:54 AM
[2017-02-27] MEDS: SODIUM CHLORIDE 0.9% 1000ML 1,000 ML IV SCH ×2 (12:10→21:00)
[2017-02-27 16:37] LABS: BUN/CREATININE RATIO 12.6 (10-20); CALCIUM 8.1 mg/dl (8.5-10.1); CREATININE 0.88 mg/dl (0.60-1.40)
[2017-02-27 17:15] LABS: POTASSIUM 3.5 mmol/L (3.5-5.1)
--- NOTE | 2017-02-27 17:19 | Cardiology Follow-Up ---
Subjective Date of Service: Feb 27, 2017. Pt evaluation today including: conversation w/ patient, physical exam, chart review, lab review History of Present Illness The patient is postop day 1 from a bowel resection for colon cancer. Claims to be feeling quite well. He denies pain at the operative site. He did have some nausea earlier in the day related to a Ro[place] that was not draining well. He has been able to tolerate a clear liquid diet and appears to have an appetite. He has been ambulatory around the nova without worsening dyspnea and no symptoms of chest discomfort. Social History Smoking Status: Former Smoker History of Alcohol Use: Yes (1 beer a day) Review of Systems Respiratory: No cough, No shortness of breath Cardiac: No chest pain, No edema Patient denies history of any melena or dark stools. Objective Vital Signs Past 12 Hours Date Time Temp Pulse Resp B/P (MAP) Pulse Ox O2 Delivery O2 Flow Rate FiO2 02/27/17 15:12 36.5 89 20 102/61 (75) 93 Nasal Cannula 2.0 02/27/17 12:00 Nasal Cannula 2.0 02/27/17 12:00 Nasal Cannula 2.0 02/27/17 11:13 36.6 85 20 109/61 (77) 92 Nasal Cannula 2.0 02/27/17 08:00 Nasal Cannula 2.0 02/27/17 08:00 Nasal Cannula 2.0 02/27/17 07:17 37.1 78 20 119/63 (81) 92 Nasal Cannula 2.0 Last Recorded Weight-Kilograms: 65.700 Intake & Output 8-Hour Column 02/27/17 02/28/17 02/28/17 16:00 00:00 08:00 Intake Total 1825 ml Output Total 1115 ml Balance 710 ml 24-Hour Column 02/28/17 08:00 Intake Total 1825 ml Output Total 1115 ml Balance 710 ml Physical Exam Lungs: Auscultation: breath sounds normal The patient is alert and oriented. Mood and affect appeared normal. He answered all questions appropriately. HEENT: Pupils are equal and reactive to light and accommodation. Extraocular movements are intact. The sclerae are anicteric. Neuro: Cranial nerves intact Neck: Patient's neck is supple. He has palpable carotid pulses bilaterally without bruits on auscultation. There is no evidence of jugular venous distention. The thyroid is not enlarged. Lungs: Occasional crackles in the bases bilaterally. Overall good air movement Cardiac: Heart demonstrates a regular rate and rhythm. Normal S1 and S2. No murmurs on examination. Pulses: The patient has palpable radial pulses bilaterally that are equal in intensity Extremities: There was no evidence of hypoperfusion. There is no cyanosis or clubbing. There is no edema. Skin: I did not appreciate any rashes on examination today. Data Laboratory Results: Last 24 Hours Test 02/27/17 07:34 02/27/17 15:34 White Blood Count 11.29 K/uL Red Blood Count 3.56 M/uL Hemoglobin 10.0 g/dL Hematocrit 30.3 % Mean Corpuscular Volume 85.1 fL Mean Corpuscular Hemoglobin 28.1 pg Mean Corpuscular Hemoglobin Concent 33.0 g/dl RDW Standard Deviation 43.3 fL RDW Coefficient of Variation 13.9 % Platelet Count 213 K/uL Mean Platelet Volume 9.4 fL Sodium Level 133 mmol/L 131 mmol/L Potassium Level 4.2 mmol/L Chloride Level 100 mmol/L 99 mmol/L Carbon Dioxide Level 26 mmol/L 26 mmol/L Anion Gap 7.0 mmol/L 7.0 mmol/L Blood Urea Nitrogen 11 mg/dl 11 mg/dl Creatinine 1.48 mg/dl 0.88 mg/dl Est Creatinine Clear Calc Drug Dose 32.9 ml/min 55.4 ml/min Estimated GFR () 49.3 90.8 Estimated GFR (Non- 42.5 78.3 BUN/Creatinine Ratio 7.4 12.6 Random Glucose 137 mg/dl 118 mg/dl Calcium Level 8.0 mg/dl 8.1 mg/dl Assessment and Plan 1. Coronary disease: Patient appears to have tolerated the surgery quite well. There is no evidence of active ischemia any has no new symptoms. He has been re-initiated on aspirin therapy. 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 I do not feel we need to start beta-blockade at this point. 2. First degree AV block: No symptoms. Relative contraindication to beta- blockade. 3. Tachycardia: Patient did have an element of sinus tachycardia with ambulation today. This is likely related to a combination of factors including deconditioning and mild dehydration with probable Re distribution of intravascular fluid. Did not have symptoms of chest pain or worsening dyspnea which seem to be his anginal equivalent. Will continue to monitor him as he progresses through his hospitalization. Blood pressure and oxygenation appear to be good. Hemoglobin appears to be stable.
[2017-02-28] VITALS (13 sets, daily range): BP systolic 104–151; BP diastolic 55–74; PULSE 81–110; TEMP 36.5–37.3; O2SAT 90–96
[2017-02-28] MEDS: KETOROLAC TROMETHAMINE 15 MG/ML VIAL IV SCH ×4 (05:05→20:51)
[2017-02-28 06:57] LABS: HEMATOCRIT 26.3 % (42-52); MEAN CELL VOLUME 85.1 fL (80-100); MEAN CORPUSCULAR HEMOGLOBIN 27.5 pg (25-34); MEAN CORPUSCULAR HGB CONC 32.3 g/dl (32-36); MEAN PLATELET VOLUME 9.1 fL (7.4-10.4); PLATELET COUNT 192 K/uL (130-400); RED BLOOD COUNT 3.09 M/uL (4.7-6.1); WHITE BLOOD COUNT 6.08 K/uL (4.8-10.8)
[2017-02-28] MEDS: SODIUM CHLORIDE 0.9% 1000ML 1,000 ML IV SCH (07:01)
--- NOTE | 2017-02-28 07:27 | Surgery Progress Note ---
Surgery Progress Note Date of Service Feb 28, 2017. Subjective Post OP Day: 2 liquid BM last night, no nausea, doesn't like clear liquid options Objective Vital Signs: Date Time Temp Pulse Resp B/P (MAP) Pulse Ox O2 Delivery O2 Flow Rate FiO2 02/28/17 04:00 Nasal Cannula 2.0 02/28/17 03:04 36.6 83 19 107/66 (80) 94 Nasal Cannula 2.0 02/28/17 00:00 Nasal Cannula 2.0 02/27/17 23:20 36.7 83 19 106/64 (78) 94 Nasal Cannula 2.0 02/27/17 20:00 Nasal Cannula 2.0 02/27/17 19:43 36.7 98 20 127/ (42) 92 Nasal Cannula 2.0 02/27/17 15:12 36.5 89 20 102/61 (75) 93 Nasal Cannula 2.0 02/27/17 12:00 Nasal Cannula 2.0 02/27/17 12:00 Nasal Cannula 2.0 02/27/17 11:13 36.6 85 20 109/61 (77) 92 Nasal Cannula 2.0 02/27/17 08:00 Nasal Cannula 2.0 02/27/17 08:00 Nasal Cannula 2.0 Abdomen: non distended, soft Incision(s): clean, dry Laboratory Results: Results Past 24 Hours Test 02/27/17 07:34 02/27/17 15:34 02/28/17 06:37 Range/Units White Blood Count 11.29 6.08 4.8-10.8 K/uL Red Blood Count 3.56 3.09 4.7-6.1 M/uL Hemoglobin 10.0 8.5 14.0-18.0 g/dL Hematocrit 30.3 26.3 42-52 % Mean Corpuscular Volume 85.1 85.1 80-100 fL Mean Corpuscular Hemoglobin 28.1 27.5 25-34 pg Mean Corpuscular Hemoglobin Concent 33.0 32.3 32-36 g/dl RDW Standard Deviation 43.3 43.5 36.4-46.3 fL RDW Coefficient of Variation 13.9 14.1 11.5-14.5 % Platelet Count 213 192 130-400 K/uL Mean Platelet Volume 9.4 9.1 7.4-10.4 fL Sodium Level 133 131 136-145 mmol/L Potassium Level 4.2 3.5 3.5-5.1 mmol/L Chloride Level 100 99 98-107 mmol/L Carbon Dioxide Level 26 26 21-32 mmol/L Anion Gap 7.0 7.0 3-11 mmol/L Blood Urea Nitrogen 11 11 7-18 mg/dl Creatinine 1.48 0.88 0.60-1.40 mg/dl Est Creatinine Clear Calc Drug Dose 32.9 55.4 ml/min Estimated GFR () 49.3 90.8 Estimated GFR (Non- 42.5 78.3 BUN/Creatinine Ratio 7.4 12.6 10-20 Random Glucose 137 118 70-99 mg/dl Calcium Level 8.0 8.1 8.5-10.1 mg/dl Assessment & Plan s/p lap right hemicolectomy, liver biopsy will advance to full liquids add Protonix Lovenox discontinued, to begin heparin this AM H&H down slightly, will repeat at noon, HR/BP normal AM PRP pending
[2017-02-28 07:31] LABS: BUN/CREATININE RATIO 18.1 (10-20); CALCIUM 7.6 mg/dl (8.5-10.1); CREATININE 0.62 mg/dl (0.60-1.40)
[2017-02-28] MEDS: ATORVASTATIN 40 MG TAB PO SCH (07:59)
[2017-02-28] MEDS: ASPIRIN 81 MG ECTAB PO SCH (07:59)
[2017-02-28] MEDS: HEPARIN SOD 5000 UNIT/0.5 ML CARP SQ SCH ×2 (08:02→20:55)
[2017-02-28] MEDS: PANTOprazole SOD 40 MG TAB PO SCH (08:17)
--- NOTE | 2017-02-28 09:11 | Cardiology Follow-Up ---
Subjective Date of Service: Feb 28, 2017. Pt evaluation today including: conversation w/ patient, physical exam, chart review, lab review, review of studies History of Present Illness This morning the patient claims to be feeling poorly. He states that he has no energy and is uncomfortable. He was also disappointed in his food choices this morning at breakfast. Did have some diarrhea last evening and some incontinence of stool. He was able to urinate without a catheter last evening. He states that his breathing is at baseline. He has no symptoms of chest discomfort. Social History Smoking Status: Former Smoker History of Alcohol Use: Yes (1 beer a day) Review of Systems Respiratory: No cough, No shortness of breath Cardiac: No chest pain, No edema . Objective Vital Signs Past 12 Hours Date Time Temp Pulse Resp B/P (MAP) Pulse Ox O2 Delivery O2 Flow Rate FiO2 02/28/17 08:00 36.5 109 18 122/71 (88) 90 Room Air 02/28/17 08:00 Nasal Cannula 2.0 02/28/17 04:00 Nasal Cannula 2.0 02/28/17 03:04 36.6 83 19 107/66 (80) 94 Nasal Cannula 2.0 02/28/17 00:00 Nasal Cannula 2.0 02/27/17 23:20 36.7 83 19 106/64 (78) 94 Nasal Cannula 2.0 Last Recorded Weight-Kilograms: 65.700 Physical Exam Lungs: Auscultation: breath sounds normal The patient is alert and oriented. Mood and affect appeared normal. He answered all questions appropriately. HEENT: Pupils are equal and reactive to light and accommodation. Extraocular movements are intact. The sclerae are anicteric. Neuro: Cranial nerves intact Neck: Patient's neck is supple. He has palpable carotid pulses bilaterally without bruits on auscultation. There is no evidence of jugular venous distention. The thyroid is not enlarged. Lungs: Occasional crackles in the bases bilaterally. Overall good air movement. Distant breath sounds overall Cardiac: Heart demonstrates a regular rate and rhythm. Normal S1 and S2. No murmurs on examination. Pulses: The patient has palpable radial pulses bilaterally that are equal in intensity Extremities: There was no evidence of hypoperfusion. There is no cyanosis or clubbing. There is no edema. Skin: I did not appreciate any rashes on examination today. Data Laboratory Results: Last 24 Hours Test 02/27/17 15:34 02/28/17 06:37 Sodium Level 131 mmol/L 136 mmol/L Potassium Level 3.5 mmol/L 4.0 mmol/L Chloride Level 99 mmol/L 105 mmol/L Carbon Dioxide Level 26 mmol/L 26 mmol/L Anion Gap 7.0 mmol/L 5.0 mmol/L Blood Urea Nitrogen 11 mg/dl 11 mg/dl Creatinine 0.88 mg/dl 0.62 mg/dl Est Creatinine Clear Calc Drug Dose 55.4 ml/min 78.6 ml/min Estimated GFR () 90.8 104.8 Estimated GFR (Non- 78.3 90.5 BUN/Creatinine Ratio 12.6 18.1 Random Glucose 118 mg/dl 94 mg/dl Calcium Level 8.1 mg/dl 7.6 mg/dl White Blood Count 6.08 K/uL Red Blood Count 3.09 M/uL Hemoglobin 8.5 g/dL Hematocrit 26.3 % Mean Corpuscular Volume 85.1 fL Mean Corpuscular Hemoglobin 27.5 pg Mean Corpuscular Hemoglobin Concent 32.3 g/dl RDW Standard Deviation 43.5 fL RDW Coefficient of Variation 14.1 % Platelet Count 192 K/uL Mean Platelet Volume 9.1 fL Imaging: EKG: Telemetry reviewed: Assessment and Plan 1. Coronary disease: No signs of active ischemia although he has some baseline dyspnea which was felt to be an anginal equivalent in the past. We have not monitored his EKG or cardiac enzymes since his surgery primarily because in the absence of symptoms I do not think there would be a compelling indication for any additional intervention or revascularization. However, we should attempt to optimize his myocardial oxygen delivery while limiting demand. His hemoglobin has dropped this morning, he is feeling worse he did have an element of tachycardia earlier likely associated with his deconditioning and possibly an element of anemia. Given his known ischemic heart disease in the factors noted above I would advocate for transfusion of least 1 unit of blood today. 2. First degree AV block: No symptoms. Relative contraindication to beta- blockade. 3. Mitral regurgitation: Mild to moderate Blood pressure and oxygenation appear to be good. Hemoglobin appears to be stable.
--- NOTE | 2017-02-28 10:24 | Hospitalist Progress Note ---
Hospitalist Progress Note Date of Service Feb 28, 2017. Subjective Pt evaluation today including: conversation w/ patient, physical exam, chart review, lab review, review of studies Pain: Mild abdominal pain, improved compared to yesterday PO Intake: Clears, advanced diet for lunch Voiding: no voiding problems The patient was seen and examined this morning. Pt reports feeling well today other than some mild abdominal discomfort due to surgery. He reports his pain is improved compared to yesterday. Patient has been up and ambulating to the bathroom without any difficulty. He is tolerating clears, and is asking for an advanced diet. General surgery has already seen the patient this morning and agreed to that. Patient also complains of having loose bowels, 1-2 times per day. He denies any other acute complaints including chest pain, palpitation, flutter, shortness of breath, lightheadedness or dizziness. Patient is aware that his blood will be drawn around lunchtime for slightly lower hemoglobin this morning. Additional Comments: Constitutional: No fever, sweats or chills Eyes: No diplopia, no worsening or blurred vision ENT: normal hearing, no trouble swallowing Respiratory: No cough, sputum, dyspnea at rest or on exertion Cardiovascular: No chest pain, tightness or palpitations Abdomen: See history of present illness Musculoskeletal: No joint pain, calf pain, swelling Neurologic: No weakness, numbness/tingling, or balance problems Psychiatric: No anxiety or depression Skin: No rash or itch Objective Vital Signs Date Time Temp Pulse Resp B/P (MAP) Pulse Ox O2 Delivery O2 Flow Rate FiO2 02/28/17 08:00 36.5 109 18 122/71 (88) 90 Room Air 02/28/17 08:00 Nasal Cannula 2.0 02/28/17 04:00 Nasal Cannula 2.0 02/28/17 03:04 36.6 83 19 107/66 (80) 94 Nasal Cannula 2.0 02/28/17 00:00 Nasal Cannula 2.0 02/27/17 23:20 36.7 83 19 106/64 (78) 94 Nasal Cannula 2.0 02/27/17 20:00 Nasal Cannula 2.0 02/27/17 19:43 36.7 98 20 127/ (42) 92 Nasal Cannula 2.0 02/27/17 15:12 36.5 89 20 102/61 (75) 93 Nasal Cannula 2.0 02/27/17 12:00 Nasal Cannula 2.0 02/27/17 12:00 Nasal Cannula 2.0 02/27/17 11:13 36.6 85 20 109/61 (77) 92 Nasal Cannula 2.0 Physical Exam Notes: General: awake, alert, no apparent distress, slightly hard of hearing Head: Normocephalic, atraumatic ENT: PERRL, EOMI, no pharyngeal exudate, MMM Chest: Clear to auscultation, on room air, no adventitious breath sounds Cardiac: Regular rate and rhythm, + systolic murmur, no JVD, normal peripheral pulses, good capillary refill Abdominal: Abdominal incision appears well healed, alesia intact around the umbilicus, NABS x 4 quadrants, soft, nontender to light palpation, no rebound, guarding or tenderness Extremities: Normal inspection, no peripheral edema or erythema, calfs nontender to palpation Psych: Normal mood and affect, jokingly sarcastic Neuro: AAO x 3, strength intact bilaterally and related 5/5, gait is slightly unsteady upon standing, no motor deficits, speech is clear, no peripheral sensory deficits Laboratory Results Last 24 Hours Test 02/27/17 15:34 02/28/17 06:37 Sodium Level 131 mmol/L 136 mmol/L Potassium Level 3.5 mmol/L 4.0 mmol/L Chloride Level 99 mmol/L 105 mmol/L Carbon Dioxide Level 26 mmol/L 26 mmol/L Anion Gap 7.0 mmol/L 5.0 mmol/L Blood Urea Nitrogen 11 mg/dl 11 mg/dl Creatinine 0.88 mg/dl 0.62 mg/dl Est Creatinine Clear Calc Drug Dose 55.4 ml/min 78.6 ml/min Estimated GFR () 90.8 104.8 Estimated GFR (Non- 78.3 90.5 BUN/Creatinine Ratio 12.6 18.1 Random Glucose 118 mg/dl 94 mg/dl Calcium Level 8.1 mg/dl 7.6 mg/dl White Blood Count 6.08 K/uL Red Blood Count 3.09 M/uL Hemoglobin 8.5 g/dL Hematocrit 26.3 % Mean Corpuscular Volume 85.1 fL Mean Corpuscular Hemoglobin 27.5 pg Mean Corpuscular Hemoglobin Concent 32.3 g/dl RDW Standard Deviation 43.5 fL RDW Coefficient of Variation 14.1 % Platelet Count 192 K/uL Mean Platelet Volume 9.1 fL Assessment and Plan 86 y/o male with a history of CAD s/p stent Dec 2015, HTN, HLD, COPD and prostate cancer who presents with small bowel obstruction. 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 Velazco - await path reports Oncology: Dr. Dyer -- prognosis poor, not likely curative, considering immunotherapy/chemotherapy - Advance diet -per general surgery- patient dislikes boost and refuses to drink it, pt encouraged increased protein intake for improvement with healing - WBC improved to 6K, monitor with cbc, likely reactive on 02/27 secondary to surgical procedure. FRANCIA- resolved - Cr increased from 0.6 to 1.4 has now trended downward back to 0.6 again today. - Can DC IVFs since tolerating clears without any difficulty, advancing diet - Follow am PRP - Avoid nephrotoxins Mild hyponatremia - Resolved - corrected with 1 days of NSS on 02/27 - follow am prp CAD s/p stent 12/18/15--stable - Resume ASA 81 mg - Will resume Plavix after clearance from general surg - Continue Lipitor 80 mg PO hs - Cardiology consulted for cardiac pre op clearance: Echo ordered. Moderate risk for perioperative cardiac event. - Echo shows LVEF of 55-60%. Severe basal inferior and inferolateral hypokinesis. Mild hypokinesis of mid inferolateral wall and base to mid lateral wall. Mild to moderate mitral regurgitation. Borderline pulmonary hypertension. Grade I diastolic dysfunction. HTN, HLD--stable COPD--stable -O2 by protocol H/o prostate cancer--in remission DVT prophylaxis - Resume lovenox Code Status: FULL Disposition: From home, lives alone, CM to assist with d/c planning, await general surgery recommendations for discharged home, will transfer to telemetry today
[2017-02-28] MEDS ORDERED: ACETAMINOPHEN 325 MG TAB PO ONE (10:30)
[2017-02-28 12:05] LABS: HEMATOCRIT 29.5 % (42-52)
[2017-03-01] MEDS: KETOROLAC TROMETHAMINE 15 MG/ML VIAL IV SCH ×4 (03:51→21:40)
[2017-03-01 06:41] LABS: HEMATOCRIT 30.3 % (42-52); MEAN CELL VOLUME 85.1 fL (80-100); MEAN CORPUSCULAR HEMOGLOBIN 27.5 pg (25-34); MEAN CORPUSCULAR HGB CONC 32.3 g/dl (32-36); MEAN PLATELET VOLUME 9.8 fL (7.4-10.4); PLATELET COUNT 197 K/uL (130-400); RED BLOOD COUNT 3.56 M/uL (4.7-6.1); WHITE BLOOD COUNT 6.59 K/uL (4.8-10.8)
[2017-03-01 07:04] LABS: BUN/CREATININE RATIO 16.5 (10-20); CALCIUM 7.8 mg/dl (8.5-10.1); CREATININE 0.6 mg/dl (0.60-1.40); MAGNESIUM 2.3 mg/dl (1.8-2.4); PHOSPHORUS 2.1 mg/dl (2.5-4.9)
[2017-03-01 07:38] VITALS: BP 122/71; PULSE 78; TEMP 36.7; O2SAT 97
[2017-03-01 08:20] VITALS: O2SAT 95
--- NOTE | 2017-03-01 08:24 | Hospitalist Progress Note ---
Hospitalist Progress Note Date of Service Mar 01, 2017. Subjective Pt evaluation today including: conversation w/ patient, physical exam, chart review, lab review, review of studies Pain: Moderate abdominal pain PO Intake: Good - tolerated regular diet for breakfast Voiding: no voiding problems The patient was seen and examined this morning. Pt reports still having diarrhea , twice overnight and twice during the day on average. His abdomen is painful with coughing, but reports overall pain better controlled today than yesterday. He reports he wont go back on a clear liquid diet and actually enjoyed breakfast this morning. Pt understands we are checking for a c. diff. I have also placed him on a probiotic at this time. He was hoping to be home for [place] with his , but seems depressed as she may have to spend this alone. He denies any fever, chills or sweats and reports otherwise doing ok. ROS: 6 point ROS reviewed and otherwise negative. Objective Vital Signs Date Time Temp Pulse Resp B/P (MAP) Pulse Ox O2 Delivery O2 Flow Rate FiO2 03/01/17 07:38 36.7 78 18 122/71 (88) 97 Nasal Cannula 3.0 02/28/17 23:34 37.2 81 18 126/67 (86) 95 Nasal Cannula 3.0 02/28/17 19:31 94 Nasal Cannula 2.0 Humidified Oxygen 02/28/17 19:30 Nasal Cannula 02/28/17 19:28 90 Room Air 02/28/17 17:45 37.3 92 16 151/74 95 2.0 02/28/17 17:00 36.6 86 18 116/69 96 2.0 02/28/17 16:20 Nasal Cannula 2.0 Humidified Oxygen 02/28/17 16:00 37.0 86 18 115/67 95 2.0 02/28/17 15:04 36.7 91 18 104/55 (71) 95 Nasal Cannula 2.0 Humidified Oxygen 02/28/17 15:00 36.7 91 18 104/55 95 2.0 02/28/17 13:55 36.6 100 20 134/66 96 02/28/17 12:15 92 Nasal Cannula 2.0 Humidified Oxygen 02/28/17 12:15 36.5 110 18 121/64 (83) 92 Nasal Cannula 2.0 02/28/17 12:00 Nasal Cannula 2.0 02/28/17 11:15 36.7 89 18 107/55 (72) 91 Room Air Physical Exam Notes: General: awake, alert, no apparent distress, slightly hard of hearing Head: Normocephalic, atraumatic ENT: PERRL, EOMI, MMM Chest: Clear to auscultation, on room air, no adventitious breath sounds Cardiac: Regular rate and rhythm, + systolic murmur, no JVD, normal peripheral pulses, good capillary refill Abdominal: Abdominal incision appears well healed, alesia intact around the umbilicus, dressing c/d/i, NABS x 4 quadrants, soft, tender with palpation Extremities: Normal inspection, no peripheral edema or erythema, calfs nontender to palpation Psych: Slightly flat mood, occasionally jokingly sarcastic Neuro: AAO x 3, speech is clear Laboratory Results Last 24 Hours Test 02/28/17 11:47 03/01/17 06:16 Hemoglobin 9.6 g/dL 9.8 g/dL Hematocrit 29.5 % 30.3 % White Blood Count 6.59 K/uL Red Blood Count 3.56 M/uL Mean Corpuscular Volume 85.1 fL Mean Corpuscular Hemoglobin 27.5 pg Mean Corpuscular Hemoglobin Concent 32.3 g/dl RDW Standard Deviation 44.8 fL RDW Coefficient of Variation 14.2 % Platelet Count 197 K/uL Mean Platelet Volume 9.8 fL Sodium Level 136 mmol/L Potassium Level 4.0 mmol/L Chloride Level 105 mmol/L Carbon Dioxide Level 26 mmol/L Anion Gap 5.0 mmol/L Blood Urea Nitrogen 10 mg/dl Creatinine 0.60 mg/dl Est Creatinine Clear Calc Drug Dose 81.2 ml/min Estimated GFR () 106.3 Estimated GFR (Non- 91.7 BUN/Creatinine Ratio 16.5 Random Glucose 93 mg/dl Calcium Level 7.8 mg/dl Phosphorus Level 2.1 mg/dl Magnesium Level 2.3 mg/dl Assessment and Plan 86 y/o male with a history of CAD s/p stent Dec 2015, HTN, HLD, COPD and prostate cancer who presents with small bowel obstruction. 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 Velazco - await path reports Oncology: Dr. Dyer -- prognosis poor, not likely curative, considering immunotherapy/chemotherapy - Advance diet -per general surgery- tolerated regular diet today - patient dislikes boost and refusing to drink it - WBC improved, monitor with cbc, likely reactive on 02/27 secondary to surgical procedure. Acute blood loss - Likely secondary to surgical procedure - Transfused 1 U PRBCs on 02/28 with improvement in H&H to 9.8 nearly to baseline, 1 U on hold FRANCIA- resolved - Cr increased from 0.6 to 1.4 has now trended downward back to 0.6 - Can DC IVFs since tolerating clears without any difficulty, advancing diet - Follow am PRP - Avoid nephrotoxins Mild hyponatremia - Resolved - corrected with 1 days of NSS on 02/27 - follow am prp CAD s/p stent 12/18/15--stable - Resume ASA 81 mg - Will resume Plavix after clearance from general surg - Continue Lipitor 80 mg PO hs - Cardiology consulted for preop clearance then again with lowered H&H on 02/28 - s/p transfusion as above - Echo: LVEF of 55-60%. Severe basal inferior and inferolateral hypokinesis. Mild hypokinesis of mid inferolateral wall and base to mid lateral wall. Mild to moderate mitral regurgitation. Borderline pulmonary hypertension. Grade I diastolic dysfunction. HTN, HLD--stable COPD--stable -O2 by protocol H/o prostate cancer--in remission DVT prophylaxis - lovenox subq Code Status: FULL Disposition: From [facility] in [place], lives with , LIZETH to assist with d/c planning, await general surgery recommendations for discharge home, transferred off tele.
[2017-03-01] MEDS: ASPIRIN 81 MG ECTAB PO SCH (08:34)
[2017-03-01] MEDS: ATORVASTATIN 40 MG TAB PO SCH (08:35)
[2017-03-01] MEDS: PANTOprazole SOD 40 MG TAB PO SCH (08:35)
[2017-03-01] MEDS: HEPARIN SOD 5000 UNIT/0.5 ML CARP SQ SCH ×2 (08:59→21:39)
--- NOTE | 2017-03-01 09:44 | Surgery Progress Note ---
Surgery Progress Note Date of Service Mar 01, 2017. Subjective Post OP Day: 3 + feeling well, + bowel movement, + flatus, + pain controlled, No nausea, No vomiting Objective Vital Signs: Date Time Temp Pulse Resp B/P (MAP) Pulse Ox O2 Delivery O2 Flow Rate FiO2 03/01/17 07:38 36.7 78 18 122/71 (88) 97 Nasal Cannula 3.0 02/28/17 23:34 37.2 81 18 126/67 (86) 95 Nasal Cannula 3.0 02/28/17 19:31 94 Nasal Cannula 2.0 Humidified Oxygen 02/28/17 19:30 Nasal Cannula 02/28/17 19:28 90 Room Air 02/28/17 17:45 37.3 92 16 151/74 95 2.0 02/28/17 17:00 36.6 86 18 116/69 96 2.0 02/28/17 16:20 Nasal Cannula 2.0 Humidified Oxygen 02/28/17 16:00 37.0 86 18 115/67 95 2.0 02/28/17 15:04 36.7 91 18 104/55 (71) 95 Nasal Cannula 2.0 Humidified Oxygen 02/28/17 15:00 36.7 91 18 104/55 95 2.0 02/28/17 13:55 36.6 100 20 134/66 96 02/28/17 12:15 92 Nasal Cannula 2.0 Humidified Oxygen 02/28/17 12:15 36.5 110 18 121/64 (83) 92 Nasal Cannula 2.0 02/28/17 12:00 Nasal Cannula 2.0 02/28/17 11:15 36.7 89 18 107/55 (72) 91 Room Air General Appearance: WD/WN, no apparent distress Abdomen: non distended, soft Incision(s): clean, dry, intact Laboratory Results: Results Past 24 Hours Test 02/28/17 11:47 03/01/17 06:16 Range/Units Hemoglobin 9.6 9.8 14.0-18.0 g/dL Hematocrit 29.5 30.3 42-52 % White Blood Count 6.59 4.8-10.8 K/uL Red Blood Count 3.56 4.7-6.1 M/uL Mean Corpuscular Volume 85.1 80-100 fL Mean Corpuscular Hemoglobin 27.5 25-34 pg Mean Corpuscular Hemoglobin Concent 32.3 32-36 g/dl RDW Standard Deviation 44.8 36.4-46.3 fL RDW Coefficient of Variation 14.2 11.5-14.5 % Platelet Count 197 130-400 K/uL Mean Platelet Volume 9.8 7.4-10.4 fL Sodium Level 136 136-145 mmol/L Potassium Level 4.0 3.5-5.1 mmol/L Chloride Level 105 98-107 mmol/L Carbon Dioxide Level 26 21-32 mmol/L Anion Gap 5.0 3-11 mmol/L Blood Urea Nitrogen 10 7-18 mg/dl Creatinine 0.60 0.60-1.40 mg/dl Est Creatinine Clear Calc Drug Dose 81.2 ml/min Estimated GFR () 106.3 Estimated GFR (Non- 91.7 BUN/Creatinine Ratio 16.5 10-20 Random Glucose 93 70-99 mg/dl Calcium Level 7.8 8.5-10.1 mg/dl Phosphorus Level 2.1 2.5-4.9 mg/dl Magnesium Level 2.3 1.8-2.4 mg/dl Assessment & Plan 86-year-old male s/p Lap Right Hemicolectomy with Primary Anastomosis and Liver Biopsy for Obstructing Colon Mass with Liver Mets. Patient seen and examined with Dr. Maier. Vital signs stable- no new complaints or concerns overnight. Tolerating diet- wants to advance. Patient complaining of diarrhea- reports that he had diarrhea at least 1 week prior to admission- will check for c.diff. Will advance diet and see how he tolerates.
--- NOTE | 2017-03-01 11:50 | Hematology/Oncology Prog Note ---
Hematology/Onc Progress Note Date of Service Mar 01, 2017. Diagnoses Metastatic MSI-H colorectal cancer Bowel obstruction Medications Medications Administered Medications (Trade) Dose Ordered Sig/Maciej Route Start Time Stop Time Status Last Admin Dose Admin Sodium Chloride 500 ml @ 999 mls/hr Q31M STAT IV 02/20/17 08:41 02/20/17 09:11 DC 02/20/17 08:53 999 MLS/HR Ondansetron HCl (Zofran Inj) 4 mg NOW STAT IV 02/20/17 08:41 02/20/17 08:46 DC 02/20/17 08:53 4 MG Enoxaparin Sodium (Lovenox Inj) 40 mg HS SQ 02/20/17 21:00 02/25/17 09:27 DC 02/23/17 20:07 40 MG Ondansetron HCl (Zofran Inj) 4 mg Q6H PRN IV 02/20/17 11:30 03/22/17 11:29 02/27/17 17:52 4 MG Morphine Sulfate (MoRPHine SULFATE INJ) 2 mg Q4 PRN IV 02/20/17 11:30 02/26/17 15:28 DC 02/24/17 08:13 2 MG Potassium Chloride/Sodium Chloride 1,000 ml @ 80 mls/hr [id number] IV 02/20/17 12:45 02/21/17 11:11 DC 02/20/17 23:38 80 MLS/HR Tramadol HCl (Ultram Tab) 25 mg Q4H PRN PO 02/21/17 18:30 02/26/17 15:28 DC 02/25/17 23:06 25 MG Polyethylene Glycol/ Electrolytes (Golytely Soln) 8 dose TODAY@1330,1930 PO 02/23/17 13:30 02/23/17 19:31 DC 02/23/17 20:07 8 DOSE Sodium Chloride 1,000 ml @ 80 mls/hr [id number] IV 02/23/17 12:45 02/24/17 13:54 DC 02/24/17 02:12 80 MLS/HR Enteral Nutritional Formula (Boost) 1 can TIDM PO 02/24/17 17:00 02/25/17 09:27 DC 02/24/17 17:26 1 CAN Atorvastatin Calcium (Lipitor Tab) 80 mg DAILY PO 02/25/17 09:00 03/27/17 08:59 03/01/17 08:35 80 MG Lactated Ringer's 1,000 ml @ 100 mls/hr Q10H IV 02/26/17 06:00 02/27/17 11:39 DC 02/27/17 09:06 100 MLS/HR Bupivacaine HCl (Marcaine 0.5% MPF Inj) 30 ml STK-MED ONCE .ROUTE 02/26/17 11:35 02/26/17 11:36 DC 02/26/17 14:56 8 ML Bupivacaine Liposome (Exparel) 266 mg STK-MED ONCE INFIL 02/26/17 11:35 02/26/17 11:36 DC 02/26/17 14:55 266 MG Cefoxitin Sodium 2000 mg/Dextrose 60 ml @ 100 mls/hr Q6H IV 02/26/17 18:00 02/27/17 06:35 DC 02/27/17 06:41 100 MLS/HR Morphine Sulfate (MoRPHine SULFATE INJ) 2 mg Q1H PRN IV 02/26/17 15:30 03/12/17 15:29 02/27/17 03:04 2 MG Aspirin (Ecotrin Tab) 81 mg QAM PO 02/27/17 09:00 03/29/17 08:59 03/01/17 08:34 81 MG Enoxaparin Sodium (Lovenox Inj) 40 mg QAM SQ 02/27/17 09:00 02/27/17 14:25 DC 02/27/17 09:05 40 MG Ketorolac Tromethamine (Toradol Inj) 15 mg Q6H IV 02/27/17 09:00 03/02/17 03:01 03/01/17 08:55 15 MG Tamsulosin HCl (Flomax Cap) 0.4 mg NOW ONCE PO 02/27/17 08:30 02/27/17 08:44 DC 02/27/17 09:05 0.4 MG Sodium Chloride 1,000 ml @ 100 mls/hr Q10H IV 02/27/17 11:37 02/28/17 10:22 DC 02/28/17 07:01 100 MLS/HR Heparin Sodium (Porcine) (Heparin Sq 5000 Unit/0.5ml) 5,000 unit Q12 SQ 02/28/17 09:00 03/30/17 08:59 03/01/17 08:59 5,000 UNIT Pantoprazole Sodium (Protonix Tab) 40 mg QAM PO 02/28/17 09:00 03/03/17 09:01 03/01/17 08:35 40 MG Acetaminophen (Tylenol Tab) 650 mg ONE ONCE PO 02/28/17 10:30 02/28/17 10:34 DC 02/28/17 13:58 650 MG Diphenhydramine HCl (Benadryl Cap) 25 mg ONE ONCE PO 02/28/17 10:30 02/28/17 10:34 DC 02/28/17 13:59 25 MG Subjective Mr. Jean is recovering well from surgery. His diet is advancing slowly. He still has some pain when he coughs, but has no pain elsewhere. Review of Systems: Constitutional: + weakness, + fatigue, No fever Respiratory: No cough, No shortness of breath Cardiovascular: No chest pain Abdomen: + pain, + diarrhea, No nausea, No vomiting Musculoskeletal: No joint pain, No muscle pain Heme: No abnormal bleeding/bruising, No swollen lymph nodes Vital Signs Vital Signs Past 12 Hours Date Time Temp Pulse Resp B/P (MAP) Pulse Ox O2 Delivery O2 Flow Rate FiO2 03/01/17 08:20 95 Nasal Cannula 1.0 03/01/17 07:38 36.7 78 18 122/71 (88) 97 Nasal Cannula 3.0 Physical Exam Constitutional: Level of Distress: NAD, chronically ill Psychiatric: Mental Status: active & alert Orientation: oriented except where noted Lungs: Auscuitation: CTA except as noted Cardiovascular: Heart Auscultation: RRR Abdomen: Inspection & Palpation: soft, no tenderness, guarding & rebound Extremities: no edema Laboratory Last 24 Hours Test 03/01/17 06:16 White Blood Count 6.59 K/uL Red Blood Count 3.56 M/uL Hemoglobin 9.8 g/dL Hematocrit 30.3 % Mean Corpuscular Volume 85.1 fL Mean Corpuscular Hemoglobin 27.5 pg Mean Corpuscular Hemoglobin Concent 32.3 g/dl RDW Standard Deviation 44.8 fL RDW Coefficient of Variation 14.2 % Platelet Count 197 K/uL Mean Platelet Volume 9.8 fL Sodium Level 136 mmol/L Potassium Level 4.0 mmol/L Chloride Level 105 mmol/L Carbon Dioxide Level 26 mmol/L Anion Gap 5.0 mmol/L Blood Urea Nitrogen 10 mg/dl Creatinine 0.60 mg/dl Est Creatinine Clear Calc Drug Dose 81.2 ml/min Estimated GFR () 106.3 Estimated GFR (Non- 91.7 BUN/Creatinine Ratio 16.5 Random Glucose 93 mg/dl Calcium Level 7.8 mg/dl Phosphorus Level 2.1 mg/dl Magnesium Level 2.3 mg/dl Assessment & Plan His surgery confirmed stage IV disease. We discussed a bit about the management of stage IV colorectal cancer. He's not a great candidate for chemotherapy, given his age and general weakness. 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 This is much better tolerated and would be a nice option for him. I will see him in the office in a week or two to discuss this in more detail. We will sign off for now, but I would be happy to return if any issues arise.
[2017-03-01] MEDS: LACTOBACILLUS ACIDOPHILUS (FLORANEX) TAB PO SCH ×2 (14:01→17:49)
[2017-03-01 15:20] VITALS: BP 108/57; PULSE 110; TEMP 37.4; O2SAT 90
[2017-03-01] MEDS: METRONIDAZOLE 500 MG TAB PO SCH (21:38)
[2017-03-01 23:23] VITALS: BP 115/64; PULSE 93; TEMP 37.5; O2SAT 90
[2017-03-02] MEDS: KETOROLAC TROMETHAMINE 15 MG/ML VIAL IV SCH (03:29)
[2017-03-02 03:33] VITALS: O2SAT 88
[2017-03-02 03:34] VITALS: O2SAT 91
[2017-03-02 05:36] LABS: HEMATOCRIT 28.9 % (42-52); MEAN CELL VOLUME 85.5 fL (80-100); MEAN CORPUSCULAR HEMOGLOBIN 28.4 pg (25-34); MEAN CORPUSCULAR HGB CONC 33.2 g/dl (32-36); MEAN PLATELET VOLUME 9.5 fL (7.4-10.4); PLATELET COUNT 192 K/uL (130-400); RED BLOOD COUNT 3.38 M/uL (4.7-6.1); WHITE BLOOD COUNT 6.23 K/uL (4.8-10.8)
[2017-03-02 06:59] VITALS: BP 129/70; PULSE 83; TEMP 36.5; O2SAT 94
[2017-03-02] MEDS: LACTOBACILLUS ACIDOPHILUS (FLORANEX) TAB PO SCH ×3 (08:20→17:53)
[2017-03-02] MEDS: ASPIRIN 81 MG ECTAB PO SCH (08:20)
[2017-03-02] MEDS: PANTOprazole SOD 40 MG TAB PO SCH (08:20)
[2017-03-02] MEDS: ATORVASTATIN 40 MG TAB PO SCH (08:20)
[2017-03-02] MEDS: METRONIDAZOLE 500 MG TAB PO SCH ×3 (08:21→21:28)
[2017-03-02] MEDS: HEPARIN SOD 5000 UNIT/0.5 ML CARP SQ SCH ×2 (08:23→21:27)
--- NOTE | 2017-03-02 09:07 | Surgery Progress Note ---
Surgery Progress Note Date of Service Mar 02, 2017. Subjective Post OP Day: 4 + flatus, + pain controlled, No nausea, No vomiting Reports continued episodes of diarrhea overnight. Did not eat much at dinner because he was not hungry. Objective Vital Signs: Date Time Temp Pulse Resp B/P (MAP) Pulse Ox O2 Delivery O2 Flow Rate FiO2 03/02/17 06:59 36.5 83 16 129/70 (89) 94 1.0 03/02/17 03:34 91 Nasal Cannula 1.0 Humidified Oxygen 03/02/17 03:33 88 Room Air 03/01/17 23:30 Room Air 03/01/17 23:23 37.5 93 18 115/64 (81) 90 Room Air 03/01/17 15:45 Room Air 03/01/17 15:20 37.4 110 16 108/57 (74) 90 Room Air 03/01/17 08:20 95 Nasal Cannula 1.0 General Appearance: WD/WN, no apparent distress Head: normocephalic, atraumatic Abdomen: non tender, non distended, soft Laboratory Results: Results Past 24 Hours Test 03/02/17 05:13 Range/Units White Blood Count 6.23 4.8-10.8 K/uL Red Blood Count 3.38 4.7-6.1 M/uL Hemoglobin 9.6 14.0-18.0 g/dL Hematocrit 28.9 42-52 % Mean Corpuscular Volume 85.5 80-100 fL Mean Corpuscular Hemoglobin 28.4 25-34 pg Mean Corpuscular Hemoglobin Concent 33.2 32-36 g/dl RDW Standard Deviation 45.2 36.4-46.3 fL RDW Coefficient of Variation 14.4 11.5-14.5 % Platelet Count 192 130-400 K/uL Mean Platelet Volume 9.5 7.4-10.4 fL Microbiology Results 03/01/17 C.difficile Toxin B Gene (PCR) - Final, Complete Positive for C. difficile toxin B gene Assessment & Plan 03/02/2017- s/p Lap right hemicolectomy with primary anastomosis and liver biopsy for obstructing colon mass with liver mets. Patient seen and examined with Dr. Maier. C. diff positive- contact precautions, patient started on Flagyl Tolerating low fat diet, although not feeling very hungry. Denies nausea or vomiting. Pain controlled. Afebrile. Ok to restart Plavix today. Management per hospitalist team. Discussed patient with Dr. Velazco- ok for discharge today- [facility] per medicine team. Patient to follow-up in Gen Surgery Office in 1 week for staple removal. 86-year-old male s/p Lap Right Hemicolectomy with Primary Anastomosis and Liver Biopsy for Obstructing Colon Mass with Liver Mets. Patient seen and examined with Dr. Maier. Vital signs stable- no new complaints or concerns overnight. Tolerating diet- wants to advance. Patient complaining of diarrhea- reports that he had diarrhea at least 1 week prior to admission- will check for c.diff. Will advance diet and see how he tolerates.
--- NOTE | 2017-03-02 11:50 | Discharge Instructions ---
Discharge Instructions Date of Service Mar 02, 2017. Admission Reason for Admission: Dehydration,Small Bowel Obstruction Discharge Discharge Diagnosis / Problem: Dehydration, Small Bowel Obstruction Discharge Goals Goal(s): Decrease discomfort, Improve function Activity Recommendations Activity Limitations: as noted below Lifting Limitations: no more than 10 pounds Exercise/Sports Limitations: until after follow-up appointment May Resume Sexual Activity: after follow-up appointment Shower/Bathe: no limitations . Instructions / Follow-Up Instructions / Follow-Up Please follow-up with Dr. Velazco in the General Surgery Office for staple removal and post-operative evaluation. Please call the General Surgery Office at [phone] to make this appointment. Please call the office with any questions or concerns. General Surgery Office Location [address] [place] [address] [place] [address] Current Hospital Diet Patient's current hospital diet: Low Fat Diet Discharge Diet Recommended Diet: Low Fat Diet Procedures Procedures Performed: Laparoscopic right Hemicolectomy with primary anastomosis; laparoscopic liver Biopsy Pending Studies Studies pending at discharge: no Medical Emergencies . Who to Call and When: Medical Emergencies: If at any time you feel your situation is an emergency, please call 911 immediately. . Non-Emergent Contact Non-Emergency issues call your: Surgeon Call Non-Emergent contact if: temperature is above 101.5, your pain is not controlled, wound has increased drainage, wound has increased redness . "Provider Documentation" section prepared by Bree Bravo. . VTE Core Measure Inpt VTE Proph given/why not?: Unfractionated heparin SQ, SCD's [place] Drug Monitoring Program Search Results: patient reviewed within database
--- NOTE | 2017-03-02 12:41 | Hospitalist Progress Note ---
Hospitalist Progress Note Date of Service Mar 02, 2017. (Olga Cadena PA-C) Subjective Pt evaluation today including: conversation w/ patient, physical exam, chart review, lab review, review of studies Pain: mild abdominal pain PO Intake: fair Voiding: no voiding problems The patient was seen and examined this morning. Patient reports feeling weak today. He reports he had 2 episodes of diarrhea this morning and had one overnight. The patient reports he is disgusted with being diagnosed with C. difficile and is very concerned for transmitting this to his if he goes home today. He was unable to eat anything more than a banana this morning for breakfast. Patient reports that he has not been often moving much more than from the bed to the bathroom and is unsure that he is ready to go home anyway. Patient reports his cough is minimal at this point in time and that his abdominal pain has improved since yesterday slightly. Discussion was held regarding transmission of C. difficile, and good handwashing techniques, along with using Clorox to clean hard surfaces at home. Patient understands that he is on an antibiotic to get rid of C. difficile and that he needs to continue taking the entire course even if his diarrhea resolves. All his questions and concerns were answered Additional Comments: Constitutional: No fever, sweats or chills Eyes: No diplopia, no worsening or blurred vision ENT: normal hearing, no trouble swallowing Respiratory: No cough, sputum, dyspnea at rest or on exertion Cardiovascular: No chest pain, tightness or palpitations Abdomen: See history of present illness Musculoskeletal: No joint pain, calf pain, swelling Neurologic: See history of present illness Skin: No rash or itch (Olga Cadena PA-C) Pt evaluation today including: conversation w/ patient, physical exam, chart review, lab review, review of studies Voiding: no voiding problems All Other Systems: Reviewed and Negative (Dakota Machado MD) Objective Vital Signs Date Time Temp Pulse Resp B/P (MAP) Pulse Ox O2 Delivery O2 Flow Rate FiO2 03/02/17 08:00 Nasal Cannula 1.0 Humidified Oxygen 03/02/17 06:59 36.5 83 16 129/70 (89) 94 1.0 03/02/17 03:34 91 Nasal Cannula 1.0 Humidified Oxygen 03/02/17 03:33 88 Room Air 12/23/17 23:30 Room Air 03/01/17 23:23 37.5 93 18 115/64 (81) 90 Room Air 03/01/17 15:45 Room Air 03/01/17 15:20 37.4 110 16 108/57 (74) 90 Room Air (Olga Cadena PA-C) Physical Exam General Appearance: WD/WN, no apparent distress, + pertinent finding (flat affect appears to be irritated at the beginning of exam but mood softens and he seems to be understanding by the end) Eyes: PERRL, EOMI ENT: hearing grossly normal, pharynx normal Neck: supple, no JVD Respiratory/Chest: lungs clear, no respiratory distress, no accessory muscle use, + pertinent finding (on 2 L via NC) Cardiovascular: regular rate, rhythm, + systolic murmur Abdomen: normal bowel sounds, soft, + pertinent finding (vertical abdominal wound with alesia intact, healing well surrounding erythema or infection) Extremities: non-tender, no pedal edema, no calf tenderness Neurologic/Psychiatric: alert, oriented x 3 Skin: normal color, warm/dry (Olga Cadena PA-C) General Appearance: no apparent distress Neck: supple, no adenopathy Abdomen: non tender, soft, no organomegaly Neurologic/Psychiatric: no motor/sensory deficits, oriented x 3 Skin: no rash Lymphatic: no adenopathy (Dakota Machado MD) Laboratory Results Last 24 Hours Test 03/02/17 05:13 White Blood Count 6.23 K/uL Red Blood Count 3.38 M/uL Hemoglobin 9.6 g/dL Hematocrit 28.9 % Mean Corpuscular Volume 85.5 fL Mean Corpuscular Hemoglobin 28.4 pg Mean Corpuscular Hemoglobin Concent 33.2 g/dl RDW Standard Deviation 45.2 fL RDW Coefficient of Variation 14.4 % Platelet Count 192 K/uL Mean Platelet Volume 9.5 fL (Olga Cadena PA-C) Assessment and Plan 86 y/o male with a history of CAD s/p stent Dec 2015, HTN, HLD, COPD and prostate cancer who presents with small bowel obstruction. 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 Velazco - await path reports - Discussion was held with Bree Machado and they are in agreement with discharging the patient whenever Hospitalist service feel he is ready. - Discussed with the patient feels he is more weak, not tolerating by mouth and concern for spreading C. difficile to his 1 bathroom at home. He does not have transportation tomorrow due to the holiday, and his pharmacy will not be open. Patient is agreeable to staying until Friday, all his questions and concerns were addressed. Oncology: Dr. Dyer -- prognosis poor, not likely curative -planning for immunotherapy with Kaytruda to start in 2-3 weeks -Continue regular diet - patient tolerating well -patient dislikes boost and refusing to drink it - WBC improved, monitor with cbc, likely reactive on 02/27 secondary to surgical procedure. C. difficile - Stool culture positive on 03/01 and has been started on Flagyl 500 TID, continue for at least a 14 day course - Continue probiotic Acute blood loss - Likely secondary to surgical procedure - Transfused 1 U PRBCs on 02/28 with improvement in H&H to 9.8 nearly to baseline, 1 U on hold FRANCIA- resolved - Cr increased from 0.6 to 1.4 has now trended downward back to 0.6 - Can DC IVFs since tolerating clears without any difficulty, advancing diet - Follow am PRP - Avoid nephrotoxins Mild hyponatremia - Resolved - corrected with 1 days of NSS on 02/27 - follow am prp CAD s/p stent 12/18/15--stable - Resume ASA 81 mg - Will resume Plavix after clearance from general surg - Continue Lipitor 80 mg PO hs - Cardiology consulted for preop clearance then again with lowered H&H on 02/28 - s/p transfusion as above - Echo: LVEF of 55-60%. Severe basal inferior and inferolateral hypokinesis. Mild hypokinesis of mid inferolateral wall and base to mid lateral wall. Mild to moderate mitral regurgitation. Borderline pulmonary hypertension. Grade I diastolic dysfunction. HTN, HLD--stable COPD--stable -O2 by protocol H/o prostate cancer--in remission DVT prophylaxis - lovenox subq Code Status: FULL Disposition: From [facility] in [place], lives with , discharge anticipated on Sunday 03/04. (Olga Cadena, FRANDY) 86 y/o male with a history of CAD s/p stent Dec 2015, HTN, HLD, COPD and prostate cancer who presents with small bowel obstruction. 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 Velazco - await path reports - Discussion was held with Bree Machado and they are in agreement with discharging the patient whenever Hospitalist service feel he is ready. - Discussed with the patient feels he is more weak, not tolerating by mouth and concern for spreading C. difficile to his 1 bathroom at home. He does not have transportation tomorrow due to the holiday, and his pharmacy will not be open. Patient is agreeable to staying until Friday, all his questions and concerns were addressed. Oncology: Dr. Dyer -- prognosis poor, not likely curative -planning for immunotherapy with Kaytruda to start in 2-3 weeks -Continue regular diet - patient tolerating well -patient dislikes boost and refusing to drink it - WBC improved, monitor with cbc, likely reactive on 02/27 secondary to surgical procedure. C. difficile - Stool culture positive on 03/01 and has been started on Flagyl 500 TID, continue for at least a 14 day course - Continue probiotic Acute blood loss - Likely secondary to surgical procedure - Transfused 1 U PRBCs on 02/28 with improvement in H&H to 9.8 nearly to baseline, 1 U on hold FRANCIA- resolved - Cr increased from 0.6 to 1.4 has now trended downward back to 0.6 - Can DC IVFs since tolerating clears without any difficulty, advancing diet - Follow am PRP - Avoid nephrotoxins Continued [facility] stay due to: other Discharge planning: rehab hospital (Dakota Machado MD)
[2017-03-02 14:46] VITALS: BP 146/69; PULSE 90; TEMP 37.1; O2SAT 91
[2017-03-02 22:51] VITALS: BP 137/72; PULSE 85; TEMP 37.6; O2SAT 91
[2017-03-02 23:42] VITALS: BP 140/72; PULSE 87; TEMP 37.3; O2SAT 93
[2017-03-03 06:10] LABS: HEMATOCRIT 30.9 % (42-52); MEAN CELL VOLUME 84.4 fL (80-100); MEAN CORPUSCULAR HEMOGLOBIN 27.6 pg (25-34); MEAN CORPUSCULAR HGB CONC 32.7 g/dl (32-36); MEAN PLATELET VOLUME 9.7 fL (7.4-10.4); PLATELET COUNT 202 K/uL (130-400); RED BLOOD COUNT 3.66 M/uL (4.7-6.1); WHITE BLOOD COUNT 5.26 K/uL (4.8-10.8)
--- NOTE | 2017-03-03 07:14 | Surgery Progress Note ---
Surgery Progress Note Date of Service Mar 03, 2017. Subjective Post OP Day: 5 + feeling well, + ambulating, + bowel movement, + flatus, + pain controlled, No nausea, No vomiting Patient returning to bed from restroom when I entered the room- reports that he is doing ok this AM. Had a hard time sleeping last evening. Objective Vital Signs: Date Time Temp Pulse Resp B/P (MAP) Pulse Ox O2 Delivery O2 Flow Rate FiO2 03/02/17 23:42 37.3 87 140/72 (94) 93 Room Air 03/02/17 23:34 Room Air 03/02/17 22:51 37.6 85 16 137/72 (93) 91 Room Air 03/02/17 16:00 Room Air 03/02/17 14:46 37.1 90 18 146/69 (94) 91 Room Air 03/02/17 08:00 Nasal Cannula 1.0 Humidified Oxygen General Appearance: WD/WN, no apparent distress Respiratory/Chest: no respiratory distress, no accessory muscle use Abdomen: non distended, soft, + pertinent finding (tedner at incision site. ) Incision(s): clean, dry, intact, findings Laboratory Results: Results Past 24 Hours Test 03/03/17 05:34 Range/Units White Blood Count 5.26 4.8-10.8 K/uL Red Blood Count 3.66 4.7-6.1 M/uL Hemoglobin 10.1 14.0-18.0 g/dL Hematocrit 30.9 42-52 % Mean Corpuscular Volume 84.4 80-100 fL Mean Corpuscular Hemoglobin 27.6 25-34 pg Mean Corpuscular Hemoglobin Concent 32.7 32-36 g/dl RDW Standard Deviation 44.5 36.4-46.3 fL RDW Coefficient of Variation 14.4 11.5-14.5 % Platelet Count 202 130-400 K/uL Mean Platelet Volume 9.7 7.4-10.4 fL Assessment & Plan 03/03/17- s/p Lap right hemicolectomy with primary anastomosis and liver biopsy for obstructing colon mass with liver mets. C. diff positive, PO Flagyl. Patient reports that diarrhea has seem to subsided. Pain controlled. Discharge most likely tomorrow by Medicine team. Will manage PO flagyl. Return precautions discussed with patient. Will see Dr. Velazco in the Gen Surg Office in 1 week. 03/02/2017- s/p Lap right hemicolectomy with primary anastomosis and liver biopsy for obstructing colon mass with liver mets. Patient seen and examined with Dr. Maier. C. diff positive- contact precautions, patient started on Flagyl Tolerating low fat diet, although not feeling very hungry. Denies nausea or vomiting. Pain controlled. Afebrile. Ok to restart Plavix today. Management per hospitalist team. Discussed patient with Dr. Velazco- ok for discharge today- PO Flagyl per medicine team. Patient to follow-up in Gen Surgery Office in 1 week for staple removal. 86-year-old male s/p Lap Right Hemicolectomy with Primary Anastomosis and Liver Biopsy for Obstructing Colon Mass with Liver Mets. Patient seen and examined with Dr. Maier. Vital signs stable- no new complaints or concerns overnight. Tolerating diet- wants to advance. Patient complaining of diarrhea- reports that he had diarrhea at least 1 week prior to admission- will check for c.diff. Will advance diet and see how he tolerates.
[2017-03-03 07:20] VITALS: BP 147/78; PULSE 89; TEMP 37.4; O2SAT 92
[2017-03-03] MEDS: METRONIDAZOLE 500 MG TAB PO SCH ×3 (08:43→20:58)
[2017-03-03] MEDS: ASPIRIN 81 MG ECTAB PO SCH (08:43)
[2017-03-03] MEDS: ATORVASTATIN 40 MG TAB PO SCH (08:43)
[2017-03-03] MEDS: PANTOprazole SOD 40 MG TAB PO SCH (08:44)
[2017-03-03] MEDS: LACTOBACILLUS ACIDOPHILUS (FLORANEX) TAB PO SCH ×3 (08:44→18:40)
[2017-03-03] MEDS: HEPARIN SOD 5000 UNIT/0.5 ML CARP SQ SCH ×2 (08:46→21:05)
--- NOTE | 2017-03-03 10:52 | Hospitalist Progress Note ---
Hospitalist Progress Note Date of Service Mar 03, 2017. (Olga Cadena PA-C) Subjective Pt evaluation today including: conversation w/ patient, physical exam, chart review, lab review, review of studies Pain: Moderate abdominal pain PO Intake: Fair Voiding: no voiding problems The patient was seen and examined this morning. Patient reports feeling okay; his diarrhea has resolved and had last BM yesterday evening. Patient reports his diet has been fair, his appetite is poor. He did not eat much for breakfast although reports his abdominal pain is about the same as yesterday. Abdominal pain is worsened by occasional cough, the patient has been using incentive spirometry at bedside. He denies any fevers, chills or sweats. Patient is anticipating discharge to home tomorrow after lunch. Additional Comments: Constitutional: No fever, sweats or chills Eyes: No diplopia, no worsening or blurred vision ENT: normal hearing, no trouble swallowing Respiratory: No cough, sputum, dyspnea at rest or on exertion Cardiovascular: No chest pain, tightness or palpitations Abdomen: See history of present illness Musculoskeletal: No joint pain, calf pain, swelling Neurologic: Reports feeling generalized weakness, PT at bedside Skin: No rash or itch (Olga Cadena PA-C) Objective Vital Signs Date Time Temp Pulse Resp B/P (MAP) Pulse Ox O2 Delivery O2 Flow Rate FiO2 03/03/17 07:40 Room Air 03/03/17 07:20 37.4 89 18 147/78 (101) 92 Room Air 03/02/17 23:42 37.3 87 140/72 (94) 93 Room Air 03/02/17 23:34 Room Air 03/02/17 22:51 37.6 85 16 137/72 (93) 91 Room Air 03/02/17 16:00 Room Air 03/02/17 14:46 37.1 90 18 146/69 (94) 91 Room Air (Olga Cadena PA-C) Physical Exam Notes: General Appearance: WD/WN, no apparent distress, + pertinent finding (flat affect, mood slightly improved today) Eyes: PERRL, EOMI ENT: hearing grossly normal, pharynx normal Neck: supple, no JVD Respiratory/Chest: lungs clear, no respiratory distress, no accessory muscle use, + pertinent finding (on 2 L via NC) Cardiovascular: regular rate, rhythm, + systolic murmur Abdomen: normal bowel sounds, soft, + pertinent finding (vertical abdominal wound with alesia intact, healing well, no surrounding erythema or signs of infection) Extremities: non-tender, no pedal edema, no calf tenderness Neurologic/Psychiatric: alert, oriented x 3 Skin: normal color, warm/dry (Olga Cadena PA-C) Laboratory Results Last 24 Hours Test 03/03/17 05:34 White Blood Count 5.26 K/uL Red Blood Count 3.66 M/uL Hemoglobin 10.1 g/dL Hematocrit 30.9 % Mean Corpuscular Volume 84.4 fL Mean Corpuscular Hemoglobin 27.6 pg Mean Corpuscular Hemoglobin Concent 32.7 g/dl RDW Standard Deviation 44.5 fL RDW Coefficient of Variation 14.4 % Platelet Count 202 K/uL Mean Platelet Volume 9.7 fL (Olga Cadena PA-C) Assessment and Plan 86 y/o male with a history of CAD s/p stent Dec 2015, HTN, HLD, COPD and prostate cancer who presents with small bowel obstruction. 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 Velazco - await path reports - Discussion was held with Bree Machado and they are in agreement with discharging the patient whenever Hospitalist service feel he is ready. - Discussed with the patient feels he is more weak, not tolerating by mouth and concern for spreading C. difficile to his 1 bathroom at home. He does not have transportation tomorrow due to the holiday, and his pharmacy will not be open. Patient is agreeable to staying until Friday, all his questions and concerns were addressed. Oncology: Dr. Dyer -- prognosis poor, not likely curative -planning for immunotherapy with Kaytruda to start in 2-3 weeks - Continue regular diet - appetite has been fair since diarrhea. -patient dislikes boost and refusing to drink it - WBC improved, monitor with cbc, likely reactive on 02/27 secondary to surgical procedure. C. difficile - Stool culture positive on 03/01 and has been started on Flagyl 500 TID, continue for at least a 14 day course - Continue probiotic - Encouraged Po intake Acute blood loss- Resolved - Likely secondary to surgical procedure - Transfused 1 U PRBCs on 02/28 with improvement in H&H to 9.8 nearly to baseline, 1 U on hold FRANCIA- resolved - Cr increased from 0.6 to 1.4 has now trended downward back to 0.6 - Can DC IVFs since tolerating clears without any difficulty, tolerating regular diet - stable PRP - Avoid nephrotoxins Mild hyponatremia - Resolved - corrected with 1 days of NSS on 02/27 CAD s/p stent 12/18/15--stable - Resume ASA 81 mg - Resumed Plavix - Continue Lipitor 80 mg PO hs - Cardiology consulted for preop clearance then again with lowered H&H on 02/28 - s/p transfusion as above - Echo: LVEF of 55-60%. Severe basal inferior and inferolateral hypokinesis. Mild hypokinesis of mid inferolateral wall and base to mid lateral wall. Mild to moderate mitral regurgitation. Borderline pulmonary hypertension. Grade I diastolic dysfunction. HTN, HLD--stable COPD--stable -O2 by protocol H/o prostate cancer--in remission DVT prophylaxis - lovenox subq Code Status: FULL Disposition: From [facility] in [place], lives with , discharge anticipated on Sunday 03/04. (Olga Cadena, FRANDY) PA Physician Supervision Note: I interviewed and examined the patient. Discussed with Olga Cadena PAC and agree with findings and plan as documented in the note. Any exceptions or clarifications are listed here: None Patient is recovering from small bowel obstruction surgical resection. Patient forcefully had adenocarcinoma of the cecum and colon. Patient has good pain control is passing bowel movements and we're waiting case management for postdischarge placement. He is suffering from concurrent C. difficile but his volume stool has been acceptable Vital signs are stable Physical exam shows normoactive bowel sounds he has a well-healing midline scar which is mildly erythematous looking like mostly staple irritation he also has a left lower quadrant incision which is clean dry and intact Patient is having supportive care after bowel obstruction which was found to be from malignancy he will recover at a skilled facility and likely been engaged in treatment for his malignancy anticipating discharge once facility arrangements are made in next day or 2 Documented By: Saurabh Polk (Saurabh Polk M.D.)
--- NOTE | 2017-03-03 11:51 | Discharge Instructions ---
Discharge Instructions Date of Service Mar 05, 2017. 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 Instructions / Follow-Up Instructions / Follow-Up You were admitted to [facility] with abdominal pain and found to have a small bowel obstruction due to a large tumor in the colon suspicious for colon cancer You underwent colonoscopy which confirmed a colonic mass and required surgical intervention for removal to resolve the obstruction. Biopsies of the mass and liver were taken which confirmed colon cancer with metastatic spread to the liver. You were evaluated by oncology and were determined to be a candidate for immunotherapy. You will follow up with oncology to determine when you will start this as an outpatient. Antibiotics were given to you for surgery, and you subsequently developed an infection called C. Difficile. This is a gut infection which occurs due to the lack of good gut power. Continue taking the antibiotic as below. Practice good hand washing hygiene and clean hard surfaces in your house with clorox bleach. Medications: *Your antibiotic to treat the C. Difficile infection was switched to vancomycin as it is a liquid and easier to swallow. Please take vancomycin 125 mg (2.5 mL or 0.5 teaspoon) by mouth four times a day for the next 10 days. Mix the antibiotic with 5 mL (or 1 teaspoon) of raspberry syrup when taking. *You may stop taking the probiotic as it was difficult to swallow. Please eat a yogurt daily to help promote good gut bacteria growth instead. *You may take Zofran 4 mg every 6 hours as needed for nausea or vomiting. This medication dissolves and is placed under the tongue. *You may stop taking your statin medication, Lipitor, for now as it was also difficult to swallow. You can follow up with your primary doctor about possibly resuming this medication later. Diet: *Please stick to a slippery/soft diet. Sit upright when eating to help prevent choking. It is recommended that you eat small but frequent meals. Appointments: *You have been scheduled to follow up with oncology. The details are provided in these instructions *You have also been scheduled to follow up with your primary care provider. *The general surgery office will contact you regarding follow up with Dr. Velazco and removal of your alesia. Please seek medical attention if you experience fevers, chills, sweats, dizziness/lightheadedness, loss of consciousness, chest pain, shortness of breath, nausea, vomiting, abdominal pain, numbness or tingling, or if you experience redness, swelling, drainage or pain at your surgical sites. Current Hospital Diet Patient's current hospital diet: Low Fat Diet Discharge Diet Recommended Diet: Low Fat Diet (slippery diet) Procedures Procedures Performed: Laparoscopic right Hemicolectomy with primary anastomosis; laparoscopic liver Biopsy Pending Studies Studies pending at discharge: no Medical Emergencies . Who to Call and When: Medical Emergencies: If at any time you feel your situation is an emergency, please call 911 immediately. . Non-Emergent Contact Non-Emergency issues call your: Primary Care Provider, Oncologist, Surgeon Call Non-Emergent contact if: you have a fever, temperature is above 100.5, your pain is not controlled, your pain is worsening, your pain is unusual for you, your pain is concerning you, wound has increased drainage, wound has increased redness, wound has increased pain, you have any medication questions other concerns with your health. Call 911 or go directly to the Emergency Department if you experience any of the following: Chest pain, chest tightness, shortness of breath, abdominal pain , lightheadedness, dizziness, gastrointestinal bleeding, or have any other concerns regarding your health. . Past History Medical & Surgical History: (1) S/P right hemicolectomy (2) Colon adenocarcinoma (3) Small bowel obstruction (4) Heart disease (5) Hyperlipidemia (6) Osteoarthritis . "Provider Documentation" section prepared by Carmencita Cuello PA-C . VTE Core Measure Inpt VTE Proph given/why not?: Unfractionated heparin SQ, SCD's
[2017-03-03] MEDS ORDERED: LCTX PO (11:55)
[2017-03-03] MEDS ORDERED: MTR500 PO (11:55)
[2017-03-03] MEDS: CLOPIDOGREL BISULFATE 75 MG TAB PO SCH (13:41)
[2017-03-03 19:15] VITALS: BP 127/69; PULSE 81; TEMP 37.1; O2SAT 93
--- NOTE | 2017-03-03 19:35 | Surgery Progress Note ---
Surgery Progress Note Date of Service Mar 03, 2017. Subjective Post OP Day: 5 + feeling well, + nausea, + vomiting (vomiting after eating fish at dinner), + diet (Tolerating low fat diet prior to eating fish for dinner.), No bowel movement (multiple loos BM yesterday but none today.) Patient has been steadily improving since his Laparoscopic right hemicolectomy with primary anastomosis and liver bx. This evening for dinner he ate some fish which he reports was really dry. He was not able to swallow the fish so he tried washing it down with some iced tea but this did not work either. Shortly after he felt nauseous and got up to goto the bathroom where he had an episode of vomiting. Denies blood in his vomit. During this incident, one the the nursing staff noticed a pool of bloody/serosanguinous fluid on the floor which they discovered was coming from the lower part of his abdominal incision. Doctor galarza ordered a swallowing study for tomorrow morning in response to this incident. The incision sites were redressed by the nursing staff using ABD pads and metaphor tape. Denies fever, chills, sweats. Denies any previous discharge from his incision sites. Reports mild soreness at his incision sites but states that he has not noticed any increased pain or tenderness. He has been tolerating his diet up to this point and has been able to hold down foods such as potatoes and yogurt without problems. Pain is controlled at this time. Objective Vital Signs: Date Time Temp Pulse Resp B/P (MAP) Pulse Ox O2 Delivery O2 Flow Rate FiO2 03/03/17 07:40 Room Air 03/03/17 07:20 37.4 89 18 147/78 (101) 92 Room Air 03/02/17 23:42 37.3 87 140/72 (94) 93 Room Air 03/02/17 23:34 Room Air 03/02/17 22:51 37.6 85 16 137/72 (93) 91 Room Air General Appearance: WD/WN, no apparent distress Head: normocephalic, atraumatic Neck: trachea midline Respiratory/Chest: no respiratory distress, no accessory muscle use, + pertinent finding (Persistent cough which patient has been dealing with for years. ) Abdomen: normal bowel sounds, non distended, soft, no organomegaly, + tenderness (Mild tenderness at incision sites. ) Incision(s): clean, dry, intact (clotting has occurred since his drainage episode earlier.), no drainage (None at this time despite drainage earlier), erythema (Mild) Laboratory Results: Results Past 24 Hours Test 03/03/17 05:34 Range/Units White Blood Count 5.26 4.8-10.8 K/uL Red Blood Count 3.66 4.7-6.1 M/uL Hemoglobin 10.1 14.0-18.0 g/dL Hematocrit 30.9 42-52 % Mean Corpuscular Volume 84.4 80-100 fL Mean Corpuscular Hemoglobin 27.6 25-34 pg Mean Corpuscular Hemoglobin Concent 32.7 32-36 g/dl RDW Standard Deviation 44.5 36.4-46.3 fL RDW Coefficient of Variation 14.4 11.5-14.5 % Platelet Count 202 130-400 K/uL Mean Platelet Volume 9.7 7.4-10.4 fL Assessment & Plan 03/03/17 @ 1927: POD #5 s/p laparoscopic right hemicolectomy with primary anastomosis and liver biopsy Doing well following his vomiting and incision leaking incident, no N/V at this time, pain controlled. Incision has since clotted with no drainage at this time - no signs of infection present - will recheck in AM. Swallowing study ordered per medicine in the AM to evaluate his swallowing incident at dinner. Patient is tentatively scheduled for discharge tomorrow afternoon and expressed his desire to leave. Will reassess in AM. Findings discussed with Dr. Velazco. Please contact with questions or concerns. HD #4 PSBO - Partially obstructing mass in cecum/ascending colon Stable, doing well. No Nausea, vomiting. appetite intact. NPO for now - Colonoscopy today with Dr. Farnsworth. Slightly nauseous with bowel prep last PM, tolerated otherwise. Awaiting further recommendations from GI following colonoscopy today. Will continue to follow.
[2017-03-03] MEDS: ONDANSETRON INJ 2 MG/ML 2 ML VIAL IV PRN (21:06)
[2017-03-03 23:25] VITALS: BP 126/72; PULSE 94; TEMP 37.5; O2SAT 92
[2017-03-04 07:06] VITALS: BP 123/71; PULSE 89; TEMP 36.8; O2SAT 91
[2017-03-04] MEDS: HEPARIN SOD 5000 UNIT/0.5 ML CARP SQ SCH ×2 (08:42→20:44)
[2017-03-04] MEDS: METRONIDAZOLE 500 MG TAB PO SCH ×2 (08:42→12:54)
[2017-03-04] MEDS: ASPIRIN 81 MG ECTAB PO SCH (08:42)
[2017-03-04] MEDS: ATORVASTATIN 40 MG TAB PO SCH (08:42)
[2017-03-04] MEDS: CLOPIDOGREL BISULFATE 75 MG TAB PO SCH (08:42)
[2017-03-04] MEDS: LACTOBACILLUS ACIDOPHILUS (FLORANEX) TAB PO SCH ×2 (08:43→12:54)
[2017-03-04] MEDS: ONDANSETRON INJ 2 MG/ML 2 ML VIAL IV PRN ×2 (08:54→15:20)
--- NOTE | 2017-03-04 09:11 | Surgery Progress Note ---
Surgery Progress Note Date of Service Mar 04, 2017. Subjective + bowel movement, + flatus, + pain controlled, No nausea, No vomiting Objective Vital Signs: Date Time Temp Pulse Resp B/P (MAP) Pulse Ox O2 Delivery O2 Flow Rate FiO2 03/04/17 07:06 36.8 89 16 123/71 (88) 91 Room Air 03/03/17 23:30 Room Air 03/03/17 23:25 37.5 94 18 126/72 (90) 92 Room Air 03/03/17 19:15 37.1 81 18 127/69 (88) 93 Room Air 03/03/17 15:26 Room Air General Appearance: WD/WN, no apparent distress Head: normocephalic, atraumatic Abdomen: non distended, soft, + pertinent finding (new clean dressing place over incision. ) Incision(s): clean, dry, intact, no drainage Assessment & Plan 03/03/17- s/p Lap right hemicolectomy with primary anastomosis and liver biopsy for obstructing colon mass with liver mets. Episode of vomiting last evening after dinner- patient reports that he was eating a thick piece of fish that he was unable to swallow properly. States that when he was finally able to swallow the piece of fish he immediately had to run to the bathroom to vomit. States that when he stood up after vomiting he noticed a pool of blood on the floor that was coming from his surgical incision. Patient had not been wearing a dressing over incision prior to incident. Currently, he denies nausea or vomiting. Anxious about eating breakfast- does not want to have to vomit again. Swallow precautions and speech therapy consultation ordered for today. Patient concerned that this may hold up his planned discharge for today. C. diff positive, PO Flagyl. Incision looks good, no signs of infection- no new drainage overnight- well- approximated. Patient seen and examined with Dr. Velazco. Ok to discharge from gen surgery standpoint- discharge per medicine team
--- NOTE | 2017-03-04 14:07 | DIAGNOSTIC IMAGING REPORT ---
KUB CLINICAL HISTORY: vomiting, possible postop ileus nausea. Vomiting. COMPARISON STUDY: 02/21/2017 FINDINGS: Interval removal of the nasogastric tube. Bowel pattern currently is nonobstructive. There is no bowel distention. An anastomotic line identified in the right paravertebral region. Several air-filled loops small bowel right flank IMPRESSION: Nonobstructive bowel pattern. Minimal postprocedure ileus The above report was generated using voice recognition software. It may contain grammatical, syntax or spelling errors. Electronically signed by: Aiden Golden M.D. 03/04/2017 2:06 PM Dictated Date/Time: 03/04/2017 2:05 PM
[2017-03-04 15:00] VITALS: BP 102/68; PULSE 90; TEMP 36.4; O2SAT 93
--- NOTE | 2017-03-04 15:10 | Hospitalist Progress Note ---
Hospitalist Progress Note Date of Service Mar 04, 2017. (Carmencita Cuello ., LIZ-C) Subjective Pt evaluation today including: conversation w/ patient, physical exam, chart review, lab review, review of studies, review of inpatient medication list Pain: None PO Intake: Vomiting Voiding: no voiding problems The patient reports difficulty eating. He states that he felt like he was choking on his fish last night, which was then followed by vomiting. At that time, the patient had looked down and found that his midline incision was bleeding. The patient was able to tolerate his breakfast this morning but had trouble again when given his pills as he has to take 9 different pills in the morning. He had to break these up due to difficulty swallowing. During his swallowing evaluation he felt like the turkey and fish got stuck in his throat despite drinking fluid, but he was able to swallow the other foods. The patient had not vomited again at the time of my visit, but per nursing he did vomit later in the afternoon. He complains of nausea but denies abdominal pain. He also states that he has been burping a lot but not passing flatus from below. The patient denies fevers, chills, sweats, chest pain, palpitations , claudication, cough, wheezing, shortness of breath, abdominal pain, dysuria, hematuria, urinary retention, paralysis, weakness, numbness and tingling. Additional Comments: See HPI for pertinent positives and negatives. All other systems reviewed and negative. (Carmencita Cuello ., LIZ-C) Objective Vital Signs Date Time Temp Pulse Resp B/P (MAP) Pulse Ox O2 Delivery O2 Flow Rate FiO2 03/04/17 07:55 Room Air 03/04/17 07:06 36.8 89 16 123/71 (88) 91 Room Air 03/03/17 23:30 Room Air 03/03/17 23:25 37.5 94 18 126/72 (90) 92 Room Air 03/03/17 19:15 37.1 81 18 127/69 (88) 93 Room Air 03/03/17 15:26 Room Air (Carmencita Cuello ., LIZ-C) Physical Exam Notes: General appearance: Well-developed, well-nourished, no apparent distress Head: Normocephalic, atraumatic Eyes: Normal inspection, PERRL, EOMI ENT: Normal ENT inspection, hearing grossly normal, pharynx normal Neck: Supple, no JVD, trachea midline Respiratory/Chest: Lungs clear to auscultation, normal breath sounds, no respiratory distress Cardiovascular: +Systolic murmur. Regular rate & rhythm, no gallop Abdomen/GI: +Midline incision with some mild erythema, no drainage. Incision closed and healing. Small LLQ incision dry, healing, no erythema or drainage. Normal bowel sounds, non-tender, soft Extremities/Musculoskeletal: +1+ pitting edema. Normal inspection, no calf tenderness Neurological/Psych: Alert, normal mood/affect, oriented x 3 Skin: Normal color, warm/dry, no rash (Carmencita Cuello ., LIZ-C) Diagnostic Results Reviewed the following studies and agree with interpretation as follows: KUB CLINICAL HISTORY: vomiting, possible postop ileus nausea. Vomiting. COMPARISON STUDY: 02/21/2017 FINDINGS: Interval removal of the nasogastric tube. Bowel pattern currently is nonobstructive. There is no bowel distention. An anastomotic line identified in the right paravertebral region. Several air-filled loops small bowel right flank IMPRESSION: Nonobstructive bowel pattern. Minimal postprocedure ileus (Carmencita Cuello ., PA-C) Assessment and Plan 86 y/o male with a history of CAD s/p stent Dec 2015, HTN, HLD, COPD and prostate cancer who presents with small bowel obstruction. Small bowel obstruction--resolved s/p hemicolectomy on 02/26 -Admit to med/surg -CT abdomen/pelvis shows partial SBO, potential 5 cm lesion of cecum/ascending colon, findings suggesting liver mets -NGT removed 02/22 -GI consulted, appreciate recs: Colonoscopy shows fungating, infiltrative, ulcerated and partially obstructing mass from hepatic flexure to cecum involving the ileocecal valve. Biopsies taken. Refer to surgeon and oncology. -General surgery consulted, appreciate recs: OK to discharge from surgical standpoint -Vomiting, nausea, concern for postop ileus. Repeat KUB shows nonobstructive bowel pattern Dysphagia -Speech evaluate and treat: recommend slippery diet. Aspiration precautions. Small, frequent meals -Vomiting maybe secondary to dysphagia, will continue to monitor on new diet. Hold off on discharge for now until tolerating PO diet Metastatic colon cancer -Pathology shows poorly differentiated adenocarcinoma with extensive lymph- vascular invasion. Liver biopsy w/metastatic adenocarcinoma. 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 C. diff positive 03/01--ongoing -Continue Flagyl 500 mg PO TID. Day #4 of 14 CAD s/p stent 10/18/15--stable -Continue ASA, Plavix, Lipitor 80 mg PO hs -Cardiology consulted for cardiac pre op clearance: 1st degree AV block relative contraindication for beta jason. Drop in Hgb 02/28, recommend transfuse 1 unit. -Hgb down to 8.5 on 02/28, transfused 1 unit due to h/o CAD, Hgb ideally over 10 -Echo shows LVEF of 55-60%. Severe basal inferior and inferolateral hypokinesis. Mild hypokinesis of mid inferolateral wall and base to mid lateral wall. Mild to moderate mitral regurgitation. Borderline pulmonary hypertension. Grade I diastolic dysfunction. HTN, HLD--stable COPD--stable -O2 by protocol H/o prostate cancer--in remission DVT prophylaxis -Heparin 5000 units SC q12h Code Status -Level I, FULL RESUSCITATION STATUS (Carmencita Cuello ., PA-C) PA Physician Supervision Note: I interviewed and examined the patient. Discussed with Carmencita Cuello PAC and agree with findings and plan as documented in the note. Any exceptions or clarifications are listed here: None The patient is complaining about the amount of pills he has taken and has experienced some episodes of vomiting repeat abdominal series does not show any obstruction or ileus pattern despite his recent surgery for newly found adenocarcinoma of his small bowel and cecum. The patient's in a frustrated mood where looking for a final disposition for him. Vitals are stable, speech eval feels he should have a slippery diet and as mentioned x-ray reveals no obstruction Abdomen shows minor irritation to the superior margin of the midline abdominal incision with alesia in place the left lower quadrant incision looks clean dry and intact normoactive bowel sounds are present it is soft and only tender as would be expected for his postoperative state Adenocarcinoma of the colon and small bowel recovering, C. difficile with persistent treatment although decreased production of stool of late deconditioning likely requiring subacute rehabilitation Due to the patient's request reduce the amount of pills he is taken we are holding his statin medication at this time as well as his probiotic he however will eat yogurt Documented By: Saurabh Polk (Saurabh Polk M.D.)
[2017-03-04] MEDS: RASPBERRY SYRUP 5 ML UDP PO SCH ×2 (17:30→23:55)
[2017-03-04] MEDS: VANCOMYCIN HCL 125 MG/2.5ML SOLN PO SCH ×2 (17:30→23:55)
[2017-03-04 23:12] VITALS: BP 113/70; PULSE 95; TEMP 37; O2SAT 92
[2017-03-05] MEDS: ONDANSETRON INJ 2 MG/ML 2 ML VIAL IV PRN (00:31)
[2017-03-05] MEDS: VANCOMYCIN HCL 125 MG/2.5ML SOLN PO SCH ×2 (05:53→12:13)
[2017-03-05] MEDS: RASPBERRY SYRUP 5 ML UDP PO SCH ×2 (05:53→12:13)
[2017-03-05 06:58] VITALS: BP 115/69; PULSE 93; TEMP 36.6; O2SAT 93
[2017-03-05 07:12] LABS: BUN/CREATININE RATIO 12.2 (10-20); CALCIUM 8.2 mg/dl (8.5-10.1); CREATININE 0.87 mg/dl (0.60-1.40); MAGNESIUM 2.3 mg/dl (1.8-2.4); POTASSIUM 4.1 mmol/L (3.5-5.1)
[2017-03-05 07:14] LABS: ALB/GLOB RATIO 0.8 (0.9-2)
[2017-03-05] MEDS: HEPARIN SOD 5000 UNIT/0.5 ML CARP SQ SCH (09:24)
[2017-03-05] MEDS: ASPIRIN 81 MG ECTAB PO SCH (09:26)
[2017-03-05] MEDS: CLOPIDOGREL BISULFATE 75 MG TAB PO SCH (09:26)
[2017-03-05] MEDS ORDERED: RSPS5 PO (11:45)
[2017-03-05] MEDS ORDERED: VANC1SUS PO (11:45)
[2017-03-05] MEDS ORDERED: ONDA4TAB10 SL (11:45)
[2017-03-05 12:03] VITALS: BP 115/69; PULSE 93; TEMP 36.6; O2SAT 93
--- NOTE | 2017-03-05 12:23 | Surgery Progress Note ---
Surgery Progress Note Date of Service Mar 05, 2017. Subjective Post OP Day: + bowel movement, + pain controlled, No nausea, No vomiting Patient sitting in chair for physical examination. Reports that he did have two BMs yesterday, still not really passing gas. Objective Vital Signs: Date Time Temp Pulse Resp B/P (MAP) Pulse Ox O2 Delivery O2 Flow Rate FiO2 03/05/17 07:30 Room Air 03/05/17 06:58 36.6 93 16 115/69 (84) 93 Room Air 03/04/17 23:55 Room Air 03/04/17 23:12 37.0 95 18 113/70 (84) 92 Room Air 03/04/17 15:04 Room Air 03/04/17 15:00 36.4 90 18 102/68 (79) 93 Room Air General Appearance: WD/WN, no apparent distress Head: normocephalic, atraumatic Abdomen: non tender, non distended, soft Incision(s): clean, dry, intact, findings Laboratory Results: Results Past 24 Hours Test 03/04/17 15:39 03/05/17 06:15 Range/Units Lipase 174 73-393 U/L Sodium Level 133 136-145 mmol/L Potassium Level 4.1 3.5-5.1 mmol/L Chloride Level 99 98-107 mmol/L Carbon Dioxide Level 27 21-32 mmol/L Anion Gap 7.0 3-11 mmol/L Blood Urea Nitrogen 11 7-18 mg/dl Creatinine 0.87 0.60-1.40 mg/dl Est Creatinine Clear Calc Drug Dose 56.0 ml/min Estimated GFR () 91.2 Estimated GFR (Non- 78.7 BUN/Creatinine Ratio 12.2 10-20 Random Glucose 105 70-99 mg/dl Calcium Level 8.2 8.5-10.1 mg/dl Magnesium Level 2.3 1.8-2.4 mg/dl Total Bilirubin 5.1 0.2-1 mg/dl Aspartate Amino Transf (AST/SGOT) 169 15-37 U/L Alanine Aminotransferase (ALT/SGPT) 79 12-78 U/L Alkaline Phosphatase 710 45-117 U/L Total Protein 5.6 6.4-8.2 gm/dl Albumin 2.5 3.4-5.0 gm/dl Globulin 3.1 2.5-4.0 gm/dl Albumin/Globulin Ratio 0.8 0.9-2 Assessment & Plan 03/05/2017- s/p Lap right hemicolectomy with primary anastomosis and liver biopsy for obstructing colon mass with liver mets. Patient seen and examined with Dr. Velazco. C. diff positive, unable to swallow PO flagyl- started on oral solution. Moving bowels, no flatus. Incision dry and intact. No signs of infection. Swallowing study conducted yesterday- patient on slippery diet. Ok to discharge from surgical standpoint. Patient given instructions for follow-up with Dr. Velazco in General Surgery clinic. Discharge per hospital team. 03/03/17- s/p Lap right hemicolectomy with primary anastomosis and liver biopsy for obstructing colon mass with liver mets. Episode of vomiting last evening after dinner- patient reports that he was eating a thick piece of fish that he was unable to swallow properly. States that when he was finally able to swallow the piece of fish he immediately had to run to the bathroom to vomit. States that when he stood up after vomiting he noticed a pool of blood on the floor that was coming from his surgical incision. Patient had not been wearing a dressing over incision prior to incident. Currently, he denies nausea or vomiting. Anxious about eating breakfast- does not want to have to vomit again. Swallow precautions and speech therapy consultation ordered for today. Patient concerned that this may hold up his planned discharge for today. C. diff positive, PO Flagyl. Incision looks good, no signs of infection- no new drainage overnight- well- approximated. Patient seen and examined with Dr. Velazco. Ok to discharge from gen surgery standpoint- discharge per medicine team
--- NOTE | 2017-03-05 13:39 | Discharge Summary ---
Discharge Summary Date of Service Mar 05, 2017. Discharge Summary Admission Date: Feb 20, 2017 at 12:11 Discharge Date: Mar 05, 2017 Discharge Disposition: Home with services Principal Diagnosis: Small bowel obstruction, metastatic colon cancer, C. diff Problems/Secondary Diagnoses: CAD s/p stent Oct 2015, HTN, HLD, COPD, h/o prostate cancer Procedures: Colonoscopy: Procedure Date: 02/24/2017 10:16 AM Procedure: Colonoscopy Indications: Abnormal CT of the GI tract Medicines: Monitored Anesthesia Care Complications: No immediate complications. Estimated Blood Loss: Estimated blood loss: none. Procedure: Pre-Anesthesia Assessment: - Prior to the procedure, a History and Physical was performed, and patient medications and allergies were reviewed. The patient is competent. The risks and benefits of the procedure and the sedation options and risks were discussed with the patient. All questions were answered and informed consent was obtained. Patient identification and proposed procedure were verified by the physician and the nurse in the procedure room. Mental Status Examination: alert and oriented. Airway Examination: normal oropharyngeal airway and neck mobility. Respiratory Examination: clear to auscultation. CV Examination: normal. ASA Grade Assessment: III - A patient with severe systemic disease. After reviewing the risks and benefits, the patient was deemed in satisfactory condition to undergo the procedure. The anesthesia plan was to use monitored anesthesia care (MAC). Immediately prior to administration of medications, the patient was re-assessed for adequacy to receive sedatives. The heart rate, respiratory rate, oxygen saturations, blood pressure, adequacy of pulmonary ventilation, and response to care were monitored throughout the procedure. The physical status of the patient was re-assessed after the procedure. After I obtained informed consent, the scope was passed under direct vision. Throughout the procedure, the patient's blood pressure, pulse, and oxygen saturations were monitored continuously. The scope was introduced through the anus and advanced to the cecum, identified by the ileocecal valve. The colonoscopy was performed without difficulty. The patient tolerated the procedure well. The quality of the bowel preparation was good. The ileocecal valve and the rectum were photographed. Findings: The perianal and digital rectal examinations were normal. A fungating, infiltrative and ulcerated partially obstructing large mass was found in the ascending colon, extending from the hepatic flexure to the cecum and involving the ileocecal valve. The mass was partially circumferential and near obstructive. No bleeding was present. Biopsies were taken with a cold forceps for histology. Verification of patient identification for the specimen was done by the physician and nurse using the patient's name and date. The distal margin of the mass was tattooed with an injection of 2 mL of Tory ink. Multiple small and large-mouthed diverticula were found in the sigmoid colon. Non-bleeding internal hemorrhoids were found during retroflexion. The hemorrhoids were large. 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 Biopsied. Tattooed. - Diverticulosis in the sigmoid colon. - Non-bleeding internal hemorrhoids. Recommendation: - [facility]. - Await pathology results. - Refer to a surgeon today (needs resection to prevent obstruction). - Oncology consult. Colon resection: Operative Date Feb 26, 2017. Pre-Operative Diagnosis Right colon cancer, liver metastasis Post-Operative Diagnosis same Procedure(s) Performed Laparoscopic right Hemicolectomy with primary anastomosis; laparoscopic liver Biopsy Surgeon Dr. Franc Velazco Video Control Operator Surgeon(s) Jose Ford PA-C Estimated Blood Loss 15mL Findings Multiple liver lesions. No evidence of gross peritoneal metastasis. Large firm mass in the right colon consistent with imaging and colonoscopy results. Medial to lateral right hemicolectomy performed, ileocolic vessels taken with stapler. Specimen exteriorized, resection performed with primary anastomosis. Liver biopsy performed using Harmonic. Specimens Permanent specimens A: Right hemicolectomy (sent fresh for permanent specimen) B. liver biopsy (permanent) Drains None Anesthesia GETA Complication(s) None Disposition Recovery Room / PACU Consultations: Gastroenterology General surgery Cardiology Oncology Medication Reconciliation New Medications: Ondasetron Odt (Zofran Odt) 4 Mg Tab 4 MG SL Q6H PRN for Nausea or Vomiting for 3 Days, #12 TAB Raspberry (Raspberry Syrup) 5 Ml/Cup Syrp 5 ML PO QID for 10 Days, #40 DOSE Mix with vancomycin. Take 5 mL four times a day for 10 days. Vancomycin HCl (Vancomycin HCl + Syrspend) 50 Mg/Ml Lynsey 125 MG PO QID for 10 Days, #40 DOSE Mix with raspberry syrup before taking. Take 125 mg four times a day for 10 days. Continued Medications: Aspirin (Aspirin Chewable) 81 Mg Chew 81 MG PO DAILY Clopidogrel Bisulfate (Plavix) 75 Mg Tab 75 MG PO DAILY, TAB Multiple Vitamins W/ Minerals (Centrum) 1 Tab Tab 1 TAB PO DAILY Nitroglycerin (Nitrostat) 0.4 Mg Tab 0.4 MG UT PRN PRN for CHEST PAIN, BTL Discontinued Medications: Atorvastatin (Lipitor) 80 Mg Tab 80 MG PO DAILY, TAB Discharge Exam The patient reports feeling better. He has not had any nausea or vomiting today. He states he did much better this morning as he only had to take his aspirin and Plavix pills, which he tolerated well. He is still not eating very much but did not have any dysphagia or choking on the slippery diet. He denies any further drainage from his abdominal incisions. He reports some bowel movements today and last night. The patient denies fevers, chills, sweats, chest pain, palpitations, claudication, cough, wheezing, shortness of breath, nausea, vomiting, abdominal pain, dysuria, hematuria, urinary retention, paralysis, weakness, numbness and tingling. Constitutional: No fever, No chills, No sweats Eyes: No worsening of vision, No eye pain, No diplopia ENT: No hearing loss, No nasal symptoms, No trouble swallowing Respiratory: No cough, No wheezing, No shortness of breath Cardiovascular: No chest pain, No claudication, No palpitations Abdomen: No pain, No nausea, No vomiting Musculoskeletal: No joint pain, No muscle pain, No swelling Genitourinary - Male: No dysuria, No urinary retention, No hematuria Neurologic: No paralysis, No weakness, No numbness/tingling Integumentary: No rash, No itch, No color change General appearance: Well-developed, well-nourished, no apparent distress Head: Normocephalic, atraumatic Eyes: Normal inspection, PERRL, EOMI ENT: Normal ENT inspection, hearing grossly normal, pharynx normal Neck: Supple, no JVD, trachea midline Respiratory/Chest: Lungs clear to auscultation, normal breath sounds, no respiratory distress Cardiovascular: +Systolic murmur. Regular rate & rhythm, no gallop Abdomen/GI: +Midline incision with some mild erythema, no drainage. Incision closed and healing, well approximated. Small LLQ incision dry, healing, no erythema or drainage. Normal bowel sounds, non-tender, soft Extremities/Musculoskeletal: +1+ pitting edema. Normal inspection, no calf tenderness Neurological/Psych: Alert, normal mood/affect, oriented x 3 Skin: Normal color, warm/dry, no rash Hospital Course 86 y/o male with a history of CAD s/p stent Oct 2015, HTN, HLD, COPD and prostate cancer who presents with small bowel obstruction. Small bowel obstruction--resolved s/p R hemicolectomy on 02/26 -Admit to med/surg -CT abdomen/pelvis shows partial SBO, 5 cm lesion of cecum/ascending colon, findings suggesting liver mets -NGT removed 02/22 -GI consulted, appreciate recs: Colonoscopy shows fungating, infiltrative, ulcerated and partially obstructing mass from hepatic flexure to cecum involving the ileocecal valve. Biopsies taken. Refer to surgeon and oncology. -General surgery consulted, appreciate recs: OK to discharge from surgical standpoint, will follow up outpt for alesia removal -Vomiting, nausea, concern for postop ileus. Repeat KUB shows nonobstructive bowel pattern Dysphagia--resolved w/decreased number of pills and slippery diet -Speech evaluate and treat: recommend slippery diet. Aspiration precautions. Small, frequent meals. Recommend outpt speech therapy -Vomiting maybe secondary to dysphagia. No more vomiting since transition to slippery diet -Pt c/o taking too many pills and having trouble swallowing them. Lipitor and probiotic held for now. Flagyl converted to liquid vanc. Pt reports doing better with these changes, now only ASA and Plavix pills Metastatic colon cancer, new diagnosis--ongoing -Pathology shows poorly differentiated adenocarcinoma with extensive lymph- vascular invasion. Liver biopsy w/metastatic adenocarcinoma. 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 Mildly prominent right retrocrural and enlarged upper abdominal periaortic lymph nodes are also suspicious for metastasis. Indeterminate 5 mm nodule of the right upper lobe. -Oncology consulted, appreciate recs: Good candidate for immunotherapy, will f/ u as outpatient in 1-2 weeks. -D/c with home health agency that could transition later to hospice if needed C. diff positive 03/01--ongoing -Flagyl d/c'd, switched to vanc due to dysphagia. Continue vancomycin 125 mg PO QID x 10 more days CAD s/p stent 10/18/15--stable -Continue ASA, Plavix -Lipitor held due to dysphagia as above. F/u with PCP and outpt speech therapy , could possibly resume later -Cardiology consulted for cardiac pre op clearance: Moderate risk of perioperative cardiac event. 1st degree AV block relative contraindication for beta jason. Drop in Hgb 02/28, recommend transfuse 1 unit. -Hgb down to 8.5 on 02/28, transfused 1 unit due to h/o CAD, Hgb ideally over 10. Hgb stable at discharge -Echo shows LVEF of 55-60%. Severe basal inferior and inferolateral hypokinesis. Mild hypokinesis of mid inferolateral wall and base to mid lateral wall. Mild to moderate mitral regurgitation. Borderline pulmonary hypertension. Grade I diastolic dysfunction. HTN, HLD--stable COPD--stable -O2 by protocol H/o prostate cancer--in remission DVT prophylaxis -Heparin 5000 units SC q12h Code Status -Level I, FULL RESUSCITATION STATUS PA Physician Supervision Note: I interviewed and examined the patient. Discussed with Carmencita Cuello PAC and agree with findings and plan as documented in the note. Any exceptions or clarifications are listed here: None The patient feels improved after reducing his meds, tolerating po newly found adenocarcinoma of his small bowel and cecum. Vitals are stable, speech eval feels he should have a slippery diet and pt did voice an understanding of diet choices prior to leaving Abdomen continues to show minor irritation to the superior margin of the midline abdominal incision with alesia in place the left lower quadrant incision looks clean dry and intact will follow up with general surgery for staple removal normoactive bowel sounds are present it is soft Adenocarcinoma of the colon and small bowel recovering, C. difficile with persistent treatment will have home on po vancomycin with surgical and oncological follow up Documented By: Saurabh Polk Total Time Spent: Greater than 30 minutes This includes examination of the patient, discharge planning, medication reconciliation, and communication with other providers. Discharge Instructions Please refer to the electronic Patient Visit Report (Discharge Instructions) for additional information. Follow-Up PCP Oncology General surgery Additional Copies To Danilo Maldonado M.D.; Stephanie Worthy ., FRANDY
== END 2017-03-05 14:15 | disposition home health service (06) | DRG 330 ==
LOC: EDBD 08:34 → C.EDB 08:35 → ENRESERV 11:48 → C.MS2W 12:11 → ENRESERV 02-26 16:40 → C.2T 02-26 17:07 → ENRESERV 02-28 11:25 → C.MSN 02-28 12:34
PROVIDERS: ADMIT Internal Medicine; ATTEND Internal Medicine
PROC: 0DBK8ZX Excision of Ascending Colon, Via Natural or Artificial Opening Endoscopic, Diagnostic (ICD-10-PCS; 2017-02-24)
PROC: 0DTF4ZZ Resection of Right Large Intestine, Percutaneous Endoscopic Approach (ICD-10-PCS; principal; 2017-02-26 11:15)
PROC: 0FB04ZX Excision of Liver, Percutaneous Endoscopic Approach, Diagnostic (ICD-10-PCS; principal; 2017-02-26 11:15)
DX: C18.2 Malignant neoplasm of ascending colon (principal); C78.7 Secondary malignant neoplasm of liver and intrahepatic bile duct; D62 Acute posthemorrhagic anemia; N17.9 Acute kidney failure, unspecified; E87.1 Hypo-osmolality and hyponatremia; A04.72 Enterocolitis due to Clostridium difficile, not specified as recurrent; E86.0 Dehydration; R13.10 Dysphagia, unspecified; K57.30 Diverticulosis of large intestine without perforation or abscess without bleeding; K64.8 Other hemorrhoids; I44.0 Atrioventricular block, first degree; I45.10 Unspecified right bundle-branch block; E78.5 Hyperlipidemia, unspecified; I11.9 Hypertensive heart disease without heart failure; I25.10 Atherosclerotic heart disease of native coronary artery without angina pectoris; J44.9 Chronic obstructive pulmonary disease, unspecified; Z51.81 Encounter for therapeutic drug level monitoring; Z79.899 Other long term (current) drug therapy; Z79.02 Long term (current) use of antithrombotics/antiplatelets; Z79.82 Long term (current) use of aspirin; Z85.46 Personal history of malignant neoplasm of prostate; Z92.3 Personal history of irradiation; Z95.5 Presence of coronary angioplasty implant and graft; Z87.891 Personal history of nicotine dependence